=== PATIENT | female | born 1945 | race Hispanic/Latino ===

== ENCOUNTER 2017-03-05 07:40 | Day surgery (SDC) | payer MEDICARE, BC ==
[2017-03-04 11:25] VITALS: BMI 29.4
[2017-03-05 08:09] LABS: ADD MANUAL DIFF? NO
[2017-03-05 08:12] LABS: BASO # 0.04 K/mm3 (0.0-2.0); BASO % 0.6 % (0.0-3.0); EOS # 0.1 (0.0-0.7); EOS % 1.9 % (1.5-5.0); GRAN # 4.97 (1.4-6.5); GRAN % 78.2 % (50.0-68.0); HEMATOCRIT 36.5 % (36.0-48.0); LYMPH # 0.7 (1.2-3.4); LYMPH % 10.2 % (22.0-35.0); MEAN CELL VOLUME 92.2 fL (80.0-105.0); MEAN CORPUSCULAR HEMOGLOBIN 29.8 pg (25.0-35.0); MEAN CORPUSCULAR HGB CONC 32.3 g/dl (31.0-37.0); MEAN PLATELET VOLUME 10.4 fl (7.0-11.0); MONO # 0.6 (0.1-0.6); MONO % 9.1 % (1.0-6.0); PLATELET COUNT 242 10^3/uL (120.0-450.0); RED CELL DISTRIBUTION WIDTH 14.3 % (11.5-14.5); WHITE BLOOD COUNT 6.4 10^3/ul (4.5-11.0)
[2017-03-05 08:23] LABS: INR 1.06 (0.93-1.08); PARTIAL THROMBOPLASTIN TIME 25.9 Seconds (23.7-30.8)
[2017-03-05 08:24] LABS: CALCIUM 9.3 mg/dL (8.4-10.5); POTASSIUM 4.4 mmol/L (3.6-5.0)
--- NOTE | 2017-03-05 09:19 | CP.SDSHP ---
Same Day Surgery H & P - History Proposed Procedure: Cat scan guided Pelvic biopsy Pre-Op Diagnosis: Ovarian Ca - Previous Medical/Surgical History Cardiac: Hypertension Pulmonary: Smoking (smoked 4 or 5 cigarettes for a few years,quit in 1993.), Other (History of pneumonia,tracheostomy) Misc: Other (History of DVT both legs,scoliosis) Pain: 0. No Pain Comments: Has c/o abdominal distension and swollen lower extremities for about 1 month. Cat scan of abdomen and pelvis showed multiple abnormalities including mass lesion in the pelvis. Patient's mother had ovarian ca. Previous Surgical History: Bilateral hernioraphy. Tracheostomy (for difficult intubation due to scoliosis). Colonoscopy - Allergies Allergies: Allergies No Known Allergies Allergy (Verified 04/15/13 20:21) - Physical Exam General Appearance: Well nourished female Vital Signs: Vital Signs 03/05/17 08:00 Temperature 98 F Pulse Rate 77 Respiratory 18 Rate Blood Pressure 122/59 L O2 Sat by Pulse 93 L Oximetry Mental Status: Alert & Oriented x3 Neuro: WNL Heart: WNL Lungs: WNL - {Optional Preform as Required} Abdomen: Other (distended,no tenderness,BS normal,prominant veins noted on the abdomen,pitting edema of both lower extremities noted.) Ortho: Other (Scoliosis noted.) - Impression Impression: Ovarian Ca - Date & Time Date: 03/05/17 Time: 09:09 Short Stay Discharge - Short Stay Discharge Admitting Diagnosis/Reason for [place]: [place] [id number] Disposition: HOME/ ROUTINE Referrals: Peter Love MD [Primary Care Provider] -
[2017-03-05] MEDS ORDERED: Midazolam 2 MG/2 ML VIAL ONE (10:22)
[2017-03-05] MEDS ORDERED: Oxycodone/Acetaminophen 5/325 mg Tab PO PRN (11:35)
[2017-03-05] MEDS ORDERED: Sodium Chloride 0.45% 1,000 ML IV SCH (11:45)
[2017-03-05 11:50] VITALS: O2SAT 96
[2017-03-05 12:39] VITALS: BP 105/54; PULSE 63; RESP 18; TEMP 97.6
--- NOTE | 2017-03-05 17:18 | CT ---
PROCEDURE: CT guided pelvic biopsy. HISTORY: Large pelvic mass. Evaluate for malignancy. PHYSICIAN(S): Santy Mcfadden MD. TECHNIQUE: The relative risks and indications of the procedure were explained to the patient and consent obtained. The patient was placed supine on the CT scanner and preliminary images through the pelvis obtained. Conscious sedation and monitoring were provided throughout the procedure by a nurse. There is a large pelvic mass with 2 components noted. The left component was selected for biopsy and measures approximately 8 cm x 17 cm. A left oblique approach was selected and the area prepped and draped in the usual sterile fashion. 1% Xylocaine was used to anesthetize the skin and soft tissues. A 17-gauge guiding needle was advanced into the large left pelvic mass. Its position was confirmed with CT. Using coaxial technique, multiple core biopsies were obtained. The postprocedure images show no evidence of significant hemorrhage. IMPRESSION: 1. CT-guided left pelvic biopsy as described above.
== END 2017-03-05 14:25 | disposition home or self-care (01) ==
LOC: SDS 07:40
PROVIDERS: ATTEND Radiology Vascular & Interventional Radiology
DX: C56.2 Malignant neoplasm of left ovary (principal); I10 Essential (primary) hypertension; Z80.41 Family history of malignant neoplasm of ovary; Z87.891 Personal history of nicotine dependence; Z86.718 Personal history of other venous thrombosis and embolism; M41.9 Scoliosis, unspecified
CPT/HCPCS: 36415; 49180; 77012; 80048; 85025; 85610; 85730; 88305; J2250; J2405; J3010; J7030

== ENCOUNTER 2017-03-22 10:17 | Inpatient (IN) | payer MEDICARE, BC ==
[2017-03-22 10:48] LABS: INR 2.06 (0.93-1.08); PARTIAL THROMBOPLASTIN TIME 39.2 Seconds (23.7-30.8)
[2017-03-22] MEDS ORDERED: Lidocaine 2% Inj (20ml) ONE ×2 (13:39→13:41)
[2017-03-22] MEDS: Midazolam 2 MG/2 ML VIAL ONE (14:06)
[2017-03-22] MEDS ORDERED: Oxycodone/Acetaminophen 5/325 mg Tab PO PRN (16:11)
--- NOTE | 2017-03-22 20:18 | VASCULAR ---
PROCEDURE: Ultrasound and fluoroscopic right internal jugular venous access port. CLINICAL HISTORY: Metastatic ovarian carcinoma.Venous port for chemotherapy. PHYSICIAN(S): Santy Mcfadden M.D. TECHNIQUE: The relative risks and indications of the procedure were explained to the patient and consent obtained. The patient was placed supine on the arteriogram table and the right neck and chest prepped and draped in the usual sterile fashion. Conscious sedation monitoring was provided throughout the procedure by a nurse. Antibiotics were given prior to the procedure. Under direct ultrasound guidance, the right internal jugular vein was punctured with a micro-puncture set. A 0.035 angled Glidewire was advanced into the IVC. A 4 cm incision was made below the right clavicle and the pocket blunted dissected. A 8 Upper Sorbian single-lumen catheter, 20 cm long, was advanced to the SVC/RA junction. The catheter was trimmed and attached to the port. The port aspirates and injects easily. The port was placed in the pocket and closed in 2 layers. The patient tolerated the procedure well. IMPRESSION: Ultrasound and fluoroscopically placed right internal jugular venous access port.
--- NOTE | 2017-03-22 20:23 | US ---
PROCEDURE: Ultrasound guided paracentesis. HISTORY: Metastatic ovarian CA. Abdominal pain and distension. Needs paracentesis. PHYSICIAN(S): Santy Mcfadden MD. TECHNIQUE: The relative risks and indications for the procedure were explained to the patient and informed written consent obtained. Sonography of the abdomen was performed in a supine position. This revealed a small to moderate amount of non-loculated ascites, greatest in the right upper abdomen. A majority of the patient's abdominal distention is related to intra-abdominal tumor. A puncture site was selected and the area was prepped and draped in the usual sterile fashion. 1% Xylocaine was used to anesthetize the skin and soft tissues. A 7 Polish paracentesis catheter was trocared into the right upper abdomenand 800 cc of serosanguineous fluid aspirated. No labs were sent. IMPRESSION: Ultrasound-guided paracentesis in the right upper abdomen. 800 cc of fluid were aspirated. No labs were sent.
[2017-03-22 21:06] VITALS: BMI 28.7
[2017-03-23] MEDS: Sodium Chloride 0.45% 1,000 ML IV SCH (04:45)
[2017-03-23 07:09] LABS: HEMATOCRIT 33.9 % (36.0-48.0); MEAN CELL VOLUME 92.9 fL (80.0-105.0); MEAN CORPUSCULAR HGB CONC 31.3 g/dl (31.0-37.0); MEAN PLATELET VOLUME 10.5 fl (7.0-11.0); RED CELL DISTRIBUTION WIDTH 14.4 % (11.5-14.5); WHITE BLOOD COUNT 9.3 10^3/ul (4.5-11.0)
[2017-03-23 07:22] LABS: CALCIUM 8.4 mg/dL (8.4-10.5); POTASSIUM 4.7 mmol/L (3.6-5.0)
[2017-03-23] MEDS ORDERED: Enoxaparin 30 mg Syringe SC SCH (10:00)
[2017-03-23] MEDS ORDERED: Sodium Chloride 0.9% 500 ML IV STA (11:22)
[2017-03-23] MEDS ORDERED: Albumin Human 25% (25 gm/100 ml) IV ONE (11:49)
[2017-03-23] MEDS ORDERED: Vancomycin 1gm in NS 250ml 1 GM/250 ML BAG IVPB STA (11:52)
--- NOTE | 2017-03-23 12:12 | RAD ---
HISTORY: fever COMPARISON: 01/26/2017 FINDINGS: LUNGS: No active pulmonary disease. PLEURA: No significant pleural effusion identified, no pneumothorax apparent. CARDIOVASCULAR: Normal heart size. Right central venous infusion port. OSSEOUS STRUCTURES: Thoracic dextroscoliosis. VISUALIZED UPPER ABDOMEN: Normal. OTHER FINDINGS: None. IMPRESSION: No acute infiltrate.
[2017-03-23] MEDS ORDERED: Albumin Human 25% (12.5 gm/50 ml) IV SCH ×2 (13:15→17:00)
[2017-03-23] MEDS: Enoxaparin 60 mg Syringe SC SCH ×2 (13:43→23:32)
[2017-03-23] MEDS: Meropenem 1g/NS 100mL IVPB 1 GM/100 ML PIGGYBACK IVPB SCH ×2 (14:12→21:45)
--- NOTE | 2017-03-23 14:20 | CON ---
DATE: 03/23/2017 HISTORY OF PRESENT ILLNESS: The patient seen and examined at bedside. This is a 71-year-old lady who was in her usual state of health with only a past medical history of hypertension who presented about several weeks ago to her primary medical doctor for increased girth of her abdomen. Subsequent workup including PET/CT of the abdomen and pelvis revealed extensive ovarian cancer. The patient received a Port-A-Cath yesterday by IR for initiation of chemotherapy. At the same time, moderate amount of ascites was removed. As patient was found to be somewhat hypotensive, fluid bolus was given. However, she remained hypotensive with low-grade fever up to 100.2. As she remained hypotensive, ICU consult was called. The patient denies nausea, vomiting, diarrhea or constipation. She felt a little bit dizzy since her blood pressure was found to be low. She is still, however, comfortable and presents for history of present illness. She is also not in respiratory or otherwise distress. PAST MEDICAL HISTORY: Hypertension. ALLERGIES: NKDA. MEDICATIONS: Tylenol p.r.n., albumin 25% 50 mL every 4 hours for today, isoncotic albumin bolus x 2, Lovenox 60 mg subQ q. 12, meropenem, Zofran p.r.n. , vancomycin. REVIEW OF SYSTEMS: Review of 12 organ system, other than mentioned in history of present illness, is negative. FAMILY HISTORY: Noncontributory. PHYSICAL EXAMINATION: VITAL SIGNS: Temperature 98.1 (T-max 100.3), blood pressure 90/60 (previous 70/ 40), respiratory rate 18, oxygen saturation 95% on room air. HEAD AND NECK: Atraumatic. LUNGS: Clear to auscultation bilaterally. HEART: Regular rate and rhythm. S1, S2 normal. ABDOMEN: Soft, distended. Not tender. No peritoneal signs. SKIN: Moist. PSYCHIATRIC: The patient is alert and oriented x 3. LABORATORY DATA: WBC 9.3, hemoglobin 10.6, platelet count 272. Sodium 134, potassium 4.7, chloride 99, carbon dioxide 28, BUN 53, creatinine 1.4, glucose 91. INR 2.06. Chest x-ray showed no acute pulmonary disease. ASSESSMENT AND PLAN: This is a 71-year-old lady with extensive ovarian cancer and a newly found hypotension in the setting of low grade fever. Two most likely possibilities that need to be ruled out are relative hypovolemia and decreasing preload due to pressure of intra-abdominal/intrapelvic mass onto inferior vena cava which impedes venous return to the right heart chambers. In that case, will proceed with aggressive fluid resuscitation with isoncotic colloids. This setting however would protend fairly poor prognosis, unless surgical intervention (debulking procedure will be udertaken soon). As patient had a recent paracentesis, I will also give a few hyperoncotic albumins as well. I would avoid crystalloids as it may lead to reaccumulation of ascites with subsequent compromise of hemodynamics due to increased intra-abdominal pressure on inferior vena cava. Second possibility is an Infection, even though patient looks very comfortable. I will proceed with broad-spectrum antibiotics, septic workup including blood, urine culture and procalcitonin. ID service was called for consult as well. Possibility of acute cardiogenic shock is less likely as patient is on therapeutic anticoagulation, and acute coronary syndrome is less likely in the setting of no chest pain and therapeutic anticoagulation. Nevertheless, I will get troponin and EKG. If the patient worsens clinically or lactate returns elevated, I will do CAT scan of the abdomen and pelvis. I will also trend lactic acid level. Will continue to target euvolemia, euglycemia, normothermia and oxygen saturation more than 90 %. Will continue with DVT and GI prophylaxis. I will take patient to ICU for observation until we figure out at least preliminarily and approximately etiology of her low blood pressure. Addendum: lactic acid 1.1., no signs of end organ dysfunction (troponin is neg, no chest pain, EKG no specific ischemic changes, mentating well-AAO x 3, adequate gas exchange, not in respiratory distress), except for LUKE, which also likely related to mechanical intra-abdominal factors (e.g impeded venous return due to increased intra-abdominal pressure). Will continue fluid resuscitation, if LUKE worsens--will consider nephrology consult ccm time 40 min Oliverio Mittal MD cc: [id number] TT: 03/23/2017 14:19:40 Confirmation # [id number] Dictation # [id number] [facility]
[2017-03-23 14:26] LABS: ALKALINE PHOSPHATASE 45 U/L (38-133); ALT/SGPT 25 U/L (7-56); AST/SGOT 34 U/L (15-39); BILIRUBIN,TOTAL 0.5 mg/dL (0.2-1.3); BLOOD UREA NITROGEN 56 mg/dL (7-21); CALCIUM 8.1 mg/dL (8.4-10.5); CARBON DIOXIDE 28 mmol/L (21-33); CHLORIDE 98 mmol/L (98-107); GFR AFRICAN-AMERICAN 33; GLUCOSE,RANDOM 123 mg/dL (70-110); POTASSIUM 4.7 mmol/L (3.6-5.0); SODIUM 133 mmol/L (132-148)
[2017-03-23 14:28] LABS: TOTAL PROTEIN 5.8 g/dL (5.8-8.3)
[2017-03-23 14:30] LABS: INR 2.31 (0.93-1.08)
[2017-03-23 14:31] LABS: ALB/GLOB RATIO 0.9 (1.1-1.8)
[2017-03-23 14:39] LABS: TROPONIN I < 0.01 ng/mL
[2017-03-23] MEDS: Albumin Human 5% (12.5 gm/250 ml) IV SCH ×3 (15:10→18:10)
[2017-03-23 20:20] LABS: VENOUS BLOOD GAS BASE EXCESS -2.3 mmol/L (0.0-2.0)
[2017-03-23 20:21] LABS: VENOUS BLOOD PH 7.15 (7.32-7.43)
--- NOTE | 2017-03-23 22:29 | CARD ---
APPROVED REPORT EKG Measurement Heart [id number] <Conclusion> Normal sinus rhythm Normal ECG
[2017-03-23] MEDS: Albumin Human 25% (12.5 gm/50 ml) IV SCH (23:31)
[2017-03-24] MEDS: Albumin Human 25% (12.5 gm/50 ml) IV SCH ×4 (04:30→17:00)
[2017-03-24] MEDS: Midazolam 2 MG/2 ML VIAL ONE (07:44)
[2017-03-24] MEDS: Sodium Chloride 0.45% 1,000 ML IV SCH (07:51)
--- NOTE | 2017-03-24 08:11 | HP ---
LOCATION: Currently, the patient is in room 371. Being transferred to the unit after patient was fo und to be persistently hypotensive on the floor. HISTORY OF PRESENT ILLNESS: The patient had been earlier admitted to the hospital late last night af ter she had an outpatient paracentesis done and placement of a venous catheter for initiation of chem otherapy. PAST MEDICAL HISTORY: Dates back to 2012 when I had an interaction with her. I was taking care of h er mother more than 20 years ago, who also had ovarian cancer. The patient, at that time, when I saw her in the office 2 weeks ago, had noticed increased bloating and belching over the last 6-8 weeks r ight after the holidays. She had seen her primary doctor. She was having a lot of burping and belch ing along with some nonproductive cough. She also noted, in addition to that, exertional dyspnea. C hest x-ray and echocardiogram done as an outpatient, which did not show anything specific. Then, ove r the last several weeks, she certainly started noticing bloating in her abdomen moreso than that she could construe as being just abdominal from eating and her appetite had generally gone down. She also noticed the lower extremities are more swollen in addition to decrease in this appetite. Al l of this prompter her family doctor to send her for a CAT scan of the abdomen and pelvis with p.o. c ontrast only and a CAT scan was compared to previous ultrasound from 04/17/2013. CAT scan showed, in the lower pelvis, there was no evidence of acute pathology. There was a low attenuation cystic mass lesion in the left lobe measuring 3.2 cm. There was also a low attenuating lesion in the right lobe of the liver near the dome measuring 2.7 cm. Gall bladder and bile ducts showed no evidence of acut e cholecystitis. Pancreas appeared to be unremarkable without any focal dilatation. Spleen appeared to be unremarkable. Adrenals were unremarkable. Kidneys and ureters showed no evidence of hydronep hrosis. Vasculature was unremarkable. There was no aortic aneurysm. There was no evidence of bowel obstruction with evidence of diffuse colonic diverticulosis without any evidence of diverticulitis. Appendix reveals no evidence of appendicitis. Examination of the peritoneal cavity shows there is m oderate pleural effusion and fluid in the abdominal cavity. Also, post thickening suspicious am ongst the mass lesions. No cough noted in the mid and lower abdomen. There is evidence of omental m etastasis from underlying malignancy. There were no enlarged lymph nodes seen. This could also repr esent ovarian carcinoma or primary peritoneal tumor. The patient has severe kyphoscoliosis with dege nerative changes in the lower spine and the hip joints. These are the findings of the CAT scan. The patient also had a chest x-ray done, which did not show any pathology. Electrolytes were done in e outpatient in the PMD's office. Showed a BUN of 23 with a creatinine of 0.93. Platelet count was modestly decreased to 137, white count 5.1, hemoglobin 13, hematocrit 40.7. The patient's INR was re cently noted to be elevated, which was corrected with vitamin K in order for the patient to receive t he port and have a paracentesis. CA-125 was noted to be 526. 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 The past medical history is also significant for multiple DVTs in both lower extremities along with a hypercoa g state. The patient had been placed on long-term Coumadin and been on it for several years. The abelino martin had a hypercoag workup that did not show any major pathology, but, because there were unprovoke d DVTs, the patient has been placed on long-term anticoagulants. The patient also is hypertensive an d is on medications for the same. She is on Bystolic 5 mg daily x 4, 160/25 daily, while on warfarin 5 daily. She is no longer using the MDI inhaler. REVIEW OF SYSTEMS: The patient denies any history of headaches. No difficulty in swallowing. No ey e discomfort. No history of fevers, chills, malaise or pain. The patient has some degree of shortne ss of breath. No cough or hemoptysis. CARDIAC: Denies any chest pain at rest or with exertion. GASTROINTESTINAL: No history of nausea or vomiting. He has had progressive decrease in appetite singh ng with progressive abdominal distension. Complains of burping and belching consistently. GENITOURINARY: No history of dysuria, hematuria. NEUROLOGIC: No gait disturbance or weakness of any lower extremities. SKIN: No history of skin lesions or ulcerations. MUSCULOSKELETAL: The patient has been having aches and pains in the lower back. No hip pain, no rigoberto t soreness. PHYSICAL EXAMINATION: GENERAL: The patient is awake, alert, and oriented. VITAL SIGNS: T-max is 98.4, blood pressure is 90/60, previously was 70/40, respirations 18, O2 sat i s 96% on room air. HEENT: Head is normocephalic, atraumatic. Conjunctivae pale. Sclerae are anicteric. Pupils are eq ually reactive to light and accommodation. LUNGS: Reveals it to be clear to percussion and auscultation. Decreased breath sounds on the right side posteriorly. HEART: Reveals S1 and S2 to be normal. No gallop or murmur is heard. ABDOMEN: Soft, nontender. No peritoneal signs are noted. The patient is status post abdominal tap yesterday. SKIN: Moist. SPINE: The patient, of note, has severe kyphoscoliosis. Chest x-ray showed no acute pathology. LABORATORY DATA: Reveals a white count of 9.3, hemoglobin 10.6, platelet count of 272,000. Sodium i s 134, K is 4.7, chloride 99, CO2 28, BUN 25, creatinine 1.4, glucose 19. INR is 2.06. ASSESSMENT NOTES AND PLAN: This is a 71-year-old female with extensive ovarian carcinoma, stage IIIB , recently admitted for placement of port and drainage of the peritoneal ascitic fluid. Has had pers istent hypotension with low grade temperature. Differential diagnosis could be evolving sepsis. Cou ld be other causes as well. The patient has already received 1 dose of albumin and IVs were going to be tapered and switched over to more albumin over the next few hours to see if the pressure would go up. Two possibilities that could rule out relative could be decreasing the pressure of the intraabdominal masses on the inferior vena cava, which could impede the venous return to the righ t heart chambers. The patient will get aggressive fluid resuscitation with vasotonic colloids. The other possibility, since the patient had recent paracentesis, will not have to worry about evolving s epsis as well. Second possibility; the patient has already been started on broad spectrum antibiotic s for the same. The patient has been seen by the strainer tender and is going to be transferred to the [facility] for further management for persistent hypotension. ID consultation has also been called. Possib ility of acute cardiogenic shock is less likely in a patient on therapeutic anticoagulation and acute coronary syndrome is also less likely in a patient with no chest pain in therapeutic anticoagulation . Troponin and EKG have been requested, as has been procalcitonin. The trend of lactic acid has als o been requested as well. The patient is going to be transferred to the unit. I had a long discussi on with the patient and her friend who is accompanying her. I will reach out to Dr. Bridger Love as well to let him know the scenario and the events as the . Will continue fluid resuscitat ion and follow the patient very carefully in the unit. I have answered all questions the patient has had. If and when the conditions improve, we will start the patient's systemic chemotherapy as soon as it is feasible once we rule out the infection and hypertension appears to be improved. Labs for a .m. have been requested. Brock Kaur MD cc: [id number] TT: 03/24/2017 01:22:53 mn
--- NOTE | 2017-03-24 10:01 | PN ---
DATE: 03/24/2017 The patient seen and examined at bedside. She is comfortable. She talks full sentences. She is not in respiratory or otherwise distress. PHYSICAL EXAMINATION: VITAL SIGNS: Blood pressure substantially improved and now it is 94/44 with mean arterial pressure of 66, heart rate 80, oxygen saturation 99% on nasal cannula. GENERAL: The patient is comfortable, enjoying her breakfast. HEAD AND NECK: Atraumatic. LUNGS: Clear to auscultation bilaterally. HEART: Regular rate and rhythm. S1, S2 normal. ABDOMEN: Nontender. Very distended due to underlying mass/malignancy. MUSCULOSKELETAL: Trace to 1+ bilateral pedal and ankle edema. SKIN: Moist. PSYCHIATRIC: The patient is alert and oriented x 3. LABORATORY DATA: WBC 9.3, hemoglobin 10.6, platelet count 272. Sodium 133, potassium 4.7, chloride 98, carbon dioxide 28. BUN 56, creatinine 1.8. Lactic acid 1.1. Troponin x 2 negative. Procalcitonin 2.15, INR 2.31. MEDICATIONS: Tylenol p.r.n., albumin, Lovenox 60 mg q. 12, meropenem, Zofran p.r.n., Percocet, vancomycin. ASSESSMENT AND PLAN: This is a 71-year-old lady with hypotension who was admitted to ICU for further management and monitoring overnight. She is comfortable. She is afebrile. She does not have leukocytosis and no apparent source of infection. She is on empiric antibiotics; however, I spoke with Dr. Bravo (infectious disease service) who agreed that severe sepsis unlikely to play a role in this patient's borderline hemodynamics. The patient had acute kidney injury and procalcitonin can be falsely elevated in this setting. Most likely, the patient has an increased intraabdominal pressure that impedes venous return via inferior vena cava to the right chambers of the heart, thus causing pre-load dependency and subsequent systemic hypotension. The patient received albumin. Her blood pressure substantially improved and now mean arterial pressure above 65. Unfortunately, she was turned down by [facility] surgeons for debulking surgery as the a tumor burden was too high for successful postop outcome. The decision was made to proceed with initial chemotherapy to shrink the bulk of the tumor and reconsider surgery at a later date. That was discussed with Dr. Kaur who likely will proceed with non-nephrotoxic chemotherapy tomorrow in attempt to do so. That may potentially help with blood pressure (improved venous return) and ventilatory status based on understanding mechanism described above. I will continue to target euvolemia, euglycemia, normothermia and oxygen saturation more than 90%. We will transfer patient to telemetry. We will continue with therapeutic anticoagulation for patient's deep venous thrombosis, gastrointestinal prophylaxis. ccm time 40 min Oliverio Mittal MD cc: [id number] TT: 03/24/2017 10:00:40 Confirmation # [id number] Dictation # [id number] tn MTDD
[2017-03-24] MEDS: Meropenem 1g/NS 100mL IVPB 1 GM/100 ML PIGGYBACK IVPB SCH ×2 (10:10→21:27)
[2017-03-24 10:24] LABS: HEMATOCRIT 33.5 % (36.0-48.0); MEAN CORPUSCULAR HEMOGLOBIN 29.2 pg (25.0-35.0); MEAN CORPUSCULAR HGB CONC 30.4 g/dl (31.0-37.0); MEAN PLATELET VOLUME 10.7 fl (7.0-11.0); PLATELET COUNT 248 10^3/uL (120.0-450.0); RED CELL DISTRIBUTION WIDTH 14.8 % (11.5-14.5); WHITE BLOOD COUNT 12.5 10^3/ul (4.5-11.0)
[2017-03-24 10:27] LABS: ADD MANUAL DIFF? YES
[2017-03-24 10:27] LABS: ARTERIAL BLOOD GAS HCO3 23.2 mmol/L (21-28); ARTERIAL BLOOD GAS O2 CAPACITY 13.3 mL/dl (16-24); ARTERIAL BLOOD GAS O2 CONTENT 13.2 ML/dl (15-23); ARTERIAL BLOOD HGB O2 SAT 96.5 % (95.0-98.0); CARBOXYHEMOGLOBIN 1.8 % (0.5-1.5); HHB 0.6 % (0-5); METHEMOGLOBIN 1.1 % (0.0-3.0)
[2017-03-24 10:30] LABS: ARTERIAL BLOOD GAS PH 7.07 (7.35-7.45)
[2017-03-24 10:35] LABS: INR 1.87 (0.93-1.08)
[2017-03-24 10:36] LABS: ALB/GLOB RATIO 1.3 (1.1-1.8); BILIRUBIN,TOTAL 0.5 mg/dL (0.2-1.3); CALCIUM 8.5 mg/dL (8.4-10.5); POTASSIUM 5.1 mmol/L (3.6-5.0); TOTAL PROTEIN 6.7 g/dL (5.8-8.3)
[2017-03-24 10:49] LABS: ARTERIAL BLOOD GAS HCO3 24.8 mmol/L (21-28); ARTERIAL BLOOD GAS O2 CAPACITY 13.4 mL/dl (16-24); ARTERIAL BLOOD GAS O2 CONTENT 13.3 ML/dl (15-23); ARTERIAL BLOOD HGB O2 SAT 95.8 % (95.0-98.0); CARBOXYHEMOGLOBIN 2.2 % (0.5-1.5); HHB 1.1 % (0-5); METHEMOGLOBIN 0.9 % (0.0-3.0)
[2017-03-24 11:26] LABS: BAND 3 % (0-2); NEUTROPHIL 90 % (50.0-70.0)
[2017-03-24 11:27] LABS: ANISOCYTOSIS 1+; BURR CELLS SLIGHT; HYPOCHROMIA 1+; OVALOCYTES SLIGHT; PLATELET ESTIMATE NORMAL (NORMAL); POIKILOCYTOSIS SLIGHT; POLYCHROMASIA SLIGHT
[2017-03-24] MEDS: Enoxaparin 60 mg Syringe SC SCH (11:51)
[2017-03-24 13:53] LABS: ARTERIAL BLOOD GAS HCO3 23.7 mmol/L (21-28); ARTERIAL BLOOD GAS O2 CAPACITY 13.6 mL/dl (16-24); ARTERIAL BLOOD GAS O2 CONTENT 13.5 ML/dl (15-23); ARTERIAL BLOOD HGB O2 SAT 96.8 % (95.0-98.0); CARBOXYHEMOGLOBIN 1.9 % (0.5-1.5); HHB 0.4 % (0-5); METHEMOGLOBIN 0.9 % (0.0-3.0)
[2017-03-24 13:54] LABS: ARTERIAL BLOOD GAS PH 7.15 (7.35-7.45)
--- NOTE | 2017-03-24 14:47 | US ---
HISTORY: Leg pain and swelling. Evaluate for DVT PHYSICIAN(S): Santy Mcfadden MD. TECHNIQUE: Duplex sonography and color-flow Doppler with graded compression were used to evaluate the deep venous systems of both lower extremities. FINDINGS: There is hypoechoic thrombus noted in the popliteal veins bilaterally. The femoral veins and common femoral veins are patent and compressible. IMPRESSION: Bilateral popliteal DVT.
--- NOTE | 2017-03-24 15:58 | CP.PCM.CON ---
History of Present Illness - History of Present Illness History of Present Illness: Palliative consult requested by Dr Fely Kaur Reason: Goals of care 71 year old female who was admitted with hypotnesion, low grade fever s/p paracentisis and port a cath placement. The patient has history of Stage IIB ovarian cancer. Respiratory status has decompensated and the patient was transferred to ICU for further medical management. PMHx: Ovarian cancer with omental metastasis, DVT, HTN, Family History: Mother had ovarian cancer. Social History: Non smoker, no alcohol or drug abuse. Lives independently. Advance Care Planning: The patient has an Advanced Directive dated from 2004. Her sister Danitza Schilling is named as health care proxy Review of Systems: Patient complains of shortness of breath,abdominal distention , decreased appetite,frequent belching and bloating,occasional constipation, low back pain. Past Patient History - Tetanus Immunizations Tetanus Immunization: Unknown - Past Social History Smoking Status: Former Smoker - CARDIAC Hx Cardiac Disorders: Yes Hx Circulatory Problems: Yes (dvt in both legs) Hx Hypertension: Yes - PULMONARY Hx Respiratory Disorders: Yes Hx Pneumonia: Yes - NEUROLOGICAL Hx Neurological Disorder: No - HEENT Hx HEENT Problems: No - RENAL Hx Chronic Kidney Disease: No - ENDOCRINE/METABOLIC Hx Endocrine Disorders: No - HEMATOLOGICAL/ONCOLOGICAL Hx Blood Disorders: Yes Hx Cancer: Yes (ovarian ca) - INTEGUMENTARY Hx Dermatological Problems: No - MUSCULOSKELETAL/RHEUMATOLOGICAL Hx Falls: No - GASTROINTESTINAL Hx Gastrointestinal Disorders: No - GENITOURINARY/GYNECOLOGICAL Hx 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") - PSYCHIATRIC Hx Psychophysiologic Disorder: No - SURGICAL HISTORY Hx Surgeries: Yes (hernia repair, left breast cyst removal) - ANESTHESIA Hx Anesthesia Reactions: No Hx Malignant Hyperthermia: No Meds Allergies/Adverse Reactions: Allergies Allergy/AdvReac Type Severity Reaction Status Date / Time No Known Allergies Allergy Verified 04/15/13 20:21 - Medications Medications: Current Medications Acetaminophen (Tylenol 325mg Tab) 650 mg PO Q4H PRN PRN Reason: Pain, Mild (1-3) Albumin Human (Albumin Human 25% (12.5 Gm/50 Ml)) 12.5 gm IV Q4 MARCIAL Stop: 03/24/17 16:01 Last Admin: 03/24/17 11:51 Dose: 12.5 gm Enoxaparin Sodium (Lovenox) 60 mg SC Q12H MARCIAL PRN Reason: Protocol Last Admin: 03/24/17 11:51 Dose: 60 mg Meropenem 1g/NS 100mL IVPB (Meropenem 1g/Ns 100ml Ivpb) 1 gm in 100 mls @ 100 mls/hr IVPB Q12 MARCIAL PRN Reason: Protocol Stop: 03/30/17 13:16 Last Admin: 03/24/17 10:10 Dose: 100 mls/hr Ondansetron HCl (Zofran Inj) 4 mg IVP Q6H PRN PRN Reason: Nausea/Vomiting Oxycodone/Acetaminophen (Percocet 5/325 Mg Tab) 1 tab PO Q4H PRN PRN Reason: Pain, moderate (4-7) Stop: 03/25/17 16:12 Physical Exam - Constitutional Appears: No Acute Distress, Chronically Ill - Head Exam Head Exam: NORMAL INSPECTION - Eye Exam Eye Exam: Normal appearance, PERRL - ENT Exam ENT Exam: Mucous Membranes Moist, Normal Oropharynx - Neck Exam Neck exam: Positive for: Normal Inspection - Respiratory Exam Respiratory Exam: Decreased Breath Sounds Additional comments: dyspnea - Cardiovascular Exam Cardiovascular Exam: REGULAR RHYTHM, +S1, +S2 - GI/Abdominal Exam GI & Abdominal Exam: Diminished Bowel Sounds, Distended, Soft - Extremities Exam Extremities exam: Positive for: pedal edema, pedal pulses present - Back Exam Back exam: NORMAL INSPECTION - Neurological Exam Neurological exam: Alert, Oriented x3 - Skin Skin Exam: Dry, Pallor - Additional Findings Additional findings: Palliative performance scale rating 60 % Results - Vital Signs Recent Vital Signs: Last Vital Signs Temp 98 F 03/24/17 04:00 Pulse 73 03/24/17 14:04 Resp 37 H 03/24/17 08:00 BP 90/38 L 03/24/17 08:00 Pulse Ox 96 03/24/17 08:00 - Labs Result Diagrams: 03/24/17 10:20 03/24/17 10:20 Labs: Laboratory Results - last 24 hr 03/23/17 03/23/17 03/23/17 12:30 20:04 20:04 WBC RBC Hgb Hct MCV MCH MCHC RDW Plt Count MPV Neutrophils % (Manual) Band Neutrophils % Lymphocytes % (Manual) Monocytes % (Manual) Platelet Evaluation Polychromasia Hypochromasia Poikilocytosis (manual Anisocytosis (manual) Ovalocytes Sahil Cells PT INR pCO2 pO2 56 H HCO3 ABG pH ABG Total CO2 ABG O2 Saturation ABG O2 Content ABG Base Excess ABG Hemoglobin ABG Carboxyhemoglobin POC ABG HHb (Measured) ABG Methemoglobin ABG O2 Capacity VBG pH 7.15 L* VBG pCO2 79.0 H* VBG HCO3 27.5 VBG Total CO2 29.9 H VBG O2 Sat (Calc) 92.8 H VBG Base Excess -2.3 L VBG Potassium 4.8 Hgb O2 Saturation Sodium 135.0 Chloride 105.0 Glucose 103 Lactate 0.7 FiO2 21.0 Potassium Carbon Dioxide Anion Gap BUN Creatinine Est GFR ( Amer) Est GFR (Non-Af Amer) Random Glucose Calcium Total Bilirubin AST ALT Alkaline Phosphatase Troponin I < 0.01 Total Protein Albumin Globulin Albumin/Globulin Ratio Procalcitonin 2.15 H Venous Blood Potassium 4.8 03/24/17 03/24/17 03/24/17 10:15 10:20 10:20 WBC 12.5 H D RBC 3.49 L Hgb 10.2 L Hct 33.5 L MCV 96.0 MCH 29.2 MCHC 30.4 L RDW 14.8 H Plt Count 248 MPV 10.7 Neutrophils % (Manual) 90 H Band Neutrophils % 3 H Lymphocytes % (Manual) 4 L Monocytes % (Manual) 3 Platelet Evaluation Normal Polychromasia Slight Hypochromasia 1+ Poikilocytosis (manual Slight Anisocytosis (manual) 1+ Ovalocytes Slight Grant Cells Slight PT INR pCO2 80 H* pO2 100.0 HCO3 23.2 ABG pH 7.07 L* ABG Total CO2 25.7 ABG O2 Saturation 99.4 H ABG O2 Content 13.2 L ABG Base Excess -7.5 L ABG Hemoglobin 9.6 L ABG Carboxyhemoglobin 1.8 H POC ABG HHb (Measured) 0.6 ABG Methemoglobin 1.1 ABG O2 Capacity 13.3 L VBG pH VBG pCO2 VBG HCO3 VBG Total CO2 VBG O2 Sat (Calc) VBG Base Excess VBG Potassium Hgb O2 Saturation 96.5 Sodium 137 Chloride 99 Glucose Lactate FiO2 36.0 Potassium 5.1 H Carbon Dioxide 25 Anion Gap 18 BUN 59 H Creatinine 2.3 H Est GFR ( Amer) 25 Est GFR (Non-Af Amer) 21 Random Glucose 90 Calcium 8.5 Total Bilirubin 0.5 AST 24 ALT 20 Alkaline Phosphatase 46 Troponin I Total Protein 6.7 Albumin 3.7 Globulin 2.9 Albumin/Globulin Ratio 1.3 Procalcitonin Venous Blood Potassium 03/24/17 03/24/17 03/24/17 10:20 10:46 13:45 WBC RBC Hgb Hct MCV MCH MCHC RDW Plt Count MPV Neutrophils % (Manual) Band Neutrophils % Lymphocytes % (Manual) Monocytes % (Manual) Platelet Evaluation Polychromasia Hypochromasia Poikilocytosis (manual Anisocytosis (manual) Ovalocytes Grant Cells PT 20.2 H INR 1.87 H pCO2 80 H* 68 H pO2 78.0 L 102.0 H HCO3 24.8 23.7 ABG pH 7.10 L* 7.15 L* ABG Total CO2 27.3 25.8 ABG O2 Saturation 98.9 H 99.6 H ABG O2 Content 13.3 L 13.5 L ABG Base Excess -5.6 L -5.6 L ABG Hemoglobin 9.8 L 9.8 L ABG Carboxyhemoglobin 2.2 H 1.9 H POC ABG HHb (Measured) 1.1 0.4 ABG Methemoglobin 0.9 0.9 ABG O2 Capacity 13.4 L 13.6 L VBG pH VBG pCO2 VBG HCO3 VBG Total CO2 VBG O2 Sat (Calc) VBG Base Excess VBG Potassium Hgb O2 Saturation 95.8 96.8 Sodium Chloride Glucose Lactate FiO2 32.0 40.0 Potassium Carbon Dioxide Anion Gap BUN Creatinine Est GFR ( Amer) Est GFR (Non-Af Amer) Random Glucose Calcium Total Bilirubin AST ALT Alkaline Phosphatase Troponin I Total Protein Albumin Globulin Albumin/Globulin Ratio Procalcitonin Venous Blood Potassium Assessment & Plan - Assessment and Plan (Free Text) Assessment: 71 year old female seen in the ICU with respiratory failure, hypotension, low grade fever. History of metastatic ovarian cancer, ascites,DVT. Scheduled to receive palliative chemotherapy tomorrow. I was asked to see this patient to discuss goals of care and advance care planning. Patients Advance Directive dated 2004 stipulated that she be DNR/DNI and receive no antibiotic or blood products if she had a terminal illness. We had an extensive discussion about her illness. Patient understands that her cancer is not curable but is hopeful that with treatment it may be controlled for a period of time. She is willing to proceed with chemotherapy treatment. She understands that her respiratory status is poor and that unless she is intubated she will be to weak to receive treatment. Dr Mittal and I discussed possible outcomes/ burdens of intubation. Patient's sister(POA) Danitza Schilling was listening on speaker phone during our discussion. Patient states that if she could not be weaned from ventilator that she would not want permanent tracheotomy. Patient expressed that quality of life was import ant that she prefer to live indpendlty and that she would not want to live in a vegetative state.She has asked that her sister Danitza to make her care decisions regarding her wishes if she is unable to do so.The patient revoked the Advance Directive of 2004 and initiated a new one today, a copy is on the chart. Time spent in discussion with patient regarding goals of care and advance care planning,45 minutes.
--- NOTE | 2017-03-24 19:10 | CON ---
DATE: 03/24/2017 REASON FOR CONSULTATION: Acute kidney injury. HISTORY OF PRESENTING ILLNESS: A 71-year-old lady, previously unknown to me, was admitted to the [facility] floor for observation after CT scan of the abdomen, paracentesis, placement of port for chemothe rapy. On the floor, she was found to be profoundly hypotensive. Transferred to the ICU. Consultati on is requested for acute kidney injury. Acute kidney injury superimposed on chronic kidney disease. The patient has a history of ovarian cancer. 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 She does have a history of hypertension. She gave a h istory of increasing abdominal girth, increasing lower extremity edema, decreased exercise tolerance, increased dyspnea on exertion, decreased appetite the last few days. She was being prepared for ini tiation of chemotherapy. She had a CT scan of her abdomen on 03/04. CT scan was done with contrast, which showed multiple soft tissue masses in the lower abdomen and in the pelvis, highly suspicious fo r malignant neoplasm, omental caking, no bowel obstruction. She had a CT-guided biopsy done on 03/05 for the large pelvic mass. The left component of the pelvic mass was 8 cm x 17 cm. Repeat biopsy showed papillary serous carcinoma, high grade. Currently, patient is seen in the ICU. She is awake. She is alert. She is on BiPAP. She appears c omfortable. She denies any abdominal pain. She denies any nausea, vomiting. She denies any chest t ightness. PAST MEDICAL AND SURGICAL HISTORY: Hypertension, metastatic ovarian cancer, acute kidney injury, par acentesis, pelvic mass biopsy. FAMILY HISTORY: Noncontributory. SOCIAL HISTORY: No smoking, no alcohol use, no IV drug abuse. ALLERGIES: No known drug allergies. CURRENT MEDICATIONS: Albumin, Lovenox, meropenem, Percocet, Tylenol, Zofran. REVIEW OF SYSTEMS: All systems are reviewed, pertinent positives are mentioned in the history of pre senting illness, rest unremarkable. PHYSICAL EXAMINATION: GENERAL: Obese, elderly lady, lying in bed, in the ICU. VITAL SIGNS: Blood pressure 90/38, heart rate 82, respiratory rate 18-24, temperature 98.6, T-max is 101.8. HEENT: Normocephalic, atraumatic, positive pallor. NECK: Supple, no JVD. LUNGS: Bilateral equal air entry, crackles, left greater than right. CARDIAC: S1, S2, regular rate and rhythm, no murmur, no rub. ABDOMEN: Obese, distended, soft, tense ascites, no guarding, no rigidity, bowel sounds present. EXTREMITIES: 3+ pitting edema of the lower extremities. INTAKE AND OUTPUT: 2130/600. LABORATORY DATA: WBC 12.5, hemoglobin 10, hematocrit 33.5, platelets 248, polys 90%, bands 3%, lymph ocytes 4%. Sodium 137, potassium 5.1, chloride 99, CO2 25, BUN 59, creatinine 2.3, glucose 90. Lact ic acid 1.1, calcium 8.5, albumin 3.7. INR 1.8. Blood cultures no growth so far. ASSESSMENT: 1. Acute kidney injury, review of records show that patient received contrast on 03/01/2017. Her savage al function may have been normal prior to that. Records in the hospital show creatinine of 1.7 on , perhaps her renal injury started with the contrast that she got on 03/01. 2. Sepsis, hypotension, leukocytosis, fevers. 3. 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 4. History of hypertension. 5. History of deep vein thrombosis. 6. Severe anion gap acidosis, combination of respiratory and metabolic acidosis. 7. Anemia. PLAN: 1. Leo culture. 2. Empiric antibiotics for healthcare-associated infections. 3. Dose all antibiotics for creatinine clearance about 10-30 mL per minute. 4. Avoid nephrotoxins. 5. Monitor urine output closely. 6. Monitor respiratory status closely. May need noninvasive ventilation. 7. May need supportive renal replacement therapy. 8. Palliative care consult in the setting of metastatic cancer. 9. Case discussed with Dr. Kaur. 10. Case discussed with ICU staff. More than 35 minutes spent in the care of this critically ill patient. Susannah Velasquez MD cc: [phone] TT: 03/24/2017 19:09:54 Confirmation # [id number] Dictation # [id number]
--- NOTE | 2017-03-24 20:36 | CP.PCM.CON ---
History of Present Illness - History of Present Illness History of Present Illness: 71 year old female with PMH of pneumonia, history of tracheostomy, S/P bilateral herniorraphy, HTN, history of bilateral DVT, HTN was recently diagnosed with probable ovarian cancer after presenting to her PMD with acute onset of increased abdominal girth and leg swelling for about a month. She underwent therapeutic paracentesis 2 days ago and underwent port-a-cath placement on her chest yesterday on this admission. She was transferred to the ICU after she was found to be hypotensive despite fluid challenge. She has no fever or chills, has some nausea, no vomiting, no abdominal pain, no dysuria, no hematuria, no diarrhea, no headache or dizziness, no pain in the chest and no pain at the site of the port-a-cath, no dysphagia, no sore throat, no cough or rhinorrhea. Infectious Diseases consult is requested to rule out sepsis in this patient. Review of Systems - Review of Systems All systems: reviewed and no additional remarkable complaints except (as per HPI ) Past Patient History - Tetanus Immunizations Tetanus Immunization: Unknown - Past Social History Smoking Status: Former Smoker - CARDIAC Hx Cardiac Disorders: Yes Hx Circulatory Problems: Yes (dvt in both legs) Hx Hypertension: Yes - PULMONARY Hx Respiratory Disorders: Yes Hx Pneumonia: Yes - NEUROLOGICAL Hx Neurological Disorder: No - HEENT Hx HEENT Problems: No - RENAL Hx Chronic Kidney Disease: No - ENDOCRINE/METABOLIC Hx Endocrine Disorders: No - HEMATOLOGICAL/ONCOLOGICAL Hx Blood Disorders: Yes Hx Cancer: Yes (ovarian ca) - INTEGUMENTARY Hx Dermatological Problems: No - MUSCULOSKELETAL/RHEUMATOLOGICAL Hx Falls: No - GASTROINTESTINAL Hx Gastrointestinal Disorders: No - GENITOURINARY/GYNECOLOGICAL Hx 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") - PSYCHIATRIC Hx Psychophysiologic Disorder: No - SURGICAL HISTORY Hx Surgeries: Yes (hernia repair, left breast cyst removal) - ANESTHESIA Hx Anesthesia Reactions: No Hx Malignant Hyperthermia: No Meds Allergies/Adverse Reactions: Allergies Allergy/AdvReac Type Severity Reaction Status Date / Time No Known Allergies Allergy Verified 04/15/13 20:21 - Medications Medications: Current Medications Acetaminophen (Tylenol 325mg Tab) 650 mg PO Q4H PRN PRN Reason: Pain, Mild (1-3) Albumin Human (Albumin Human 25% (12.5 Gm/50 Ml)) 12.5 gm IV Q4H MARCIAL Stop: 03/24/17 09:16 Albumin Human (Albumin Human 5% (12.5 Gm/250 Ml)) 12.5 gm IV Q1H MARCIAL Stop: 03/23/17 15:16 Enoxaparin Sodium (Lovenox) 60 mg SC Q12H MACRIAL PRN Reason: Protocol Last Admin: 03/23/17 13:43 Dose: 60 mg Meropenem 1g/NS 100mL IVPB (Meropenem 1g/Ns 100ml Ivpb) 1 gm in 100 mls @ 100 mls/hr IVPB Q12 MARCIAL PRN Reason: Protocol Stop: 03/30/17 13:16 Ondansetron HCl (Zofran Inj) 4 mg IVP Q6H PRN PRN Reason: Nausea/Vomiting Oxycodone/Acetaminophen (Percocet 5/325 Mg Tab) 1 tab PO Q4H PRN PRN Reason: Pain, moderate (4-7) Stop: 03/25/17 16:12 Physical Exam - Constitutional Appears: Non-toxic, Other (feels weak) - Head Exam Head Exam: NORMAL INSPECTION - ENT Exam ENT Exam: Mucous Membranes Moist - Neck Exam Neck exam: Negative for: Lymphadenopathy, Meningismus - Respiratory Exam Respiratory Exam: Decreased Breath Sounds Additional comments: right sided port-a-cath site clean and non-tender - Cardiovascular Exam Cardiovascular Exam: +S1, +S2 - GI/Abdominal Exam GI & Abdominal Exam: Distended, Soft. absent: Firm, Guarding, Rigid, Tenderness Results - Vital Signs Recent Vital Signs: Last Vital Signs Temp 98.1 F 03/23/17 09:30 Pulse 83 03/23/17 06:00 Resp 18 03/23/17 06:00 BP 90/60 L 03/23/17 11:40 Pulse Ox 95 03/23/17 06:00 - Labs Result Diagrams: 03/24/17 10:20 03/24/17 10:20 Labs: Laboratory Results - last 24 hr 03/23/17 03/23/17 06:30 06:30 WBC 9.3 RBC 3.65 Hgb 10.6 L Hct 33.9 L MCV 92.9 MCH 29.0 MCHC 31.3 RDW 14.4 Plt Count 272 MPV 10.5 Sodium 134 Potassium 4.7 Chloride 99 Carbon Dioxide 28 Anion Gap 12 BUN 53 H Creatinine 1.4 Est GFR ( Amer) 45 Est GFR (Non-Af Amer) 37 Random Glucose 91 Calcium 8.4 Assessment & Plan - Assessment and Plan (Free Text) Plan: Assessment Severe sepsis with acute renal failure due to gram negative bacilli bacteremia in a patient with advanced stage ovarian cancer with ascites, GI or source, unlikely port as source since it was only placed yesterday history of pneumonia history of tracheostomy S/P bilateral herniorraphy HTN history of bilateral DVT Plan Patient has been given a dose of IV Vancomycin and we have started Merrem pending identification and sensitivities of the gram negative bacilli in the blood; follow up urine cx Will follow clinically
[2017-03-24 20:55] LABS: ARTERIAL BLOOD GAS HCO3 24.2 mmol/L (21-28)
[2017-03-24] MEDS ORDERED: Dexamethasone 20 mg / 5 ml Inj IVP ONE (21:00)
[2017-03-24] MEDS: Famotidine 20mg/50ml 20 MG/50 ML BAG IVPB SCH (21:26)
--- NOTE | 2017-03-24 22:48 | PN ---
DATE: 03/24/[address] Kaur. SUBJECTIVE: The patient is a 71-year-old female seen lying awake in the intensive care unit with BiP AP on with the patient noted to be n.p.o. with no IV fluids. This will be corrected, as the patient was short of breath earlier today. She is somnolent but arousable, in no acute distress, denying any pain. The patient is admitted for evaluation of hypotension after a port placement and paracentesis. She i s known to suffer from extensive ovarian cancer. OBJECTIVE: VITAL SIGNS: Temperature 98, pulse 73, respirations 27, blood pressure 90/38. PHYSICAL EXAMINATION: HEENT: The patient with BiPAP on. NECK: Supple. HEART: Regular rate. LUNGS: Clear. ABDOMEN: Distended, nontender. EXTREMITIES: +1 edema with significant kyphoscoliosis. SKIN: Warm, dry and clear. NEUROLOGIC: Somnolent but arousable and oriented. LABORATORY DATA: The patient's labs were done, white blood cell count 12.5, hemoglobin 10.2, hematoc rit 33.5, platelet count 248,000 with a chem metabolic panel showing a potassium of 5.1, BUN of 53, c reatinine of 2.3, otherwise normal chem panel. INR is 1.87 today with an ABG showing a pO2 of 85, pC O2 of 62, pH of 7.2. Blood culture showed gram-negative rods and the anaerobic bottle positive only. ASSESSMENT: Hypotension, sepsis, ovarian cancer, acute renal failure, new deep venous thrombosis, bi lateral acute levoscoliosis, status post paracentesis, hypertension. PLAN: The patient is to continue present medical regimen with recommendations for chemotherapy as pe r Dr. Kaur's protocol. We will give dexamethasone 20 mg IV 1 dose tonight in anticipation of this with correction of her electrolytes as per Dr. Velasquez, renal, with antibiotics to continue as per Dr. Benson and Dr. Bravo with the patient to continue on BiPAP with her diet advanced to full liquid s as tolerated. We will ask for a consult with Dr. Dumont, pulmonary. Delgado Lamas MD cc: [phone] TT: 03/24/2017 22:47:46 Confirmation # [id number] Dictation # [id number]
--- NOTE | 2017-03-25 07:34 | PN ---
DATE: 03/24/2017 HISTORY OF PRESENT ILLNESS: The patient is currently in the unit, was transferred from the floor to the unit yesterday in view of persistent hypotension, possible sepsis and rapid workup was ensued ___ __ she has been in the unit. The patient has been placed on IV fluids, along with limitation by royer ng the patient IV albumin to increase the colloidal pressure. The patient has been started on broad spectrum antibiotics. CAT scan of the abdomen and pelvis was done and venous Doppler of the lower ex tremities were done, which show popliteal vein thrombosis. The patient is already on Lovenox 60 mg b .i.d. SUBJECTIVE: The patient is examined by the bedside. Immediate friends are there. The patient also was interviewed and talked to by a palliative care nurse, who as well in my presence. The feliciano ent, at this time, is on BiPAP machine and CO2, which was building up, has come down. She is comfort able. She was able to communicate with me fully. The patient was rational and she, at this point in time, has decided to rescind her previous DNR/DNI order from 2004 so that we can communicate very cl early to everybody that we plan to go ahead with systemic chemotherapy tomorrow and, if necessary at that point in time, after the chemotherapy, if we have to intubate her or do anything to help her be resuscitated, we are going to proceed with that. The patient was just diagnosed with ovarian cancer and it is the ovarian cancer that is causing mechanical issues for the diaphragm, which is being push ed, which, in turn, is causing her to have difficulty in breathing and to retain CO2. The patient is not operable at this time. She is being seen by at [facility], who felt the patient irma uld get at least 2-3 cycles of dose dense chemotherapy to see if she was a candidate at that time for possible surgery. Subjectively, the patient is not complaining of nausea or vomiting. She has no s ignificant abdominal complaints except progressive distention. OBJECTIVE: VITAL SIGNS: Stable, but blood pressure is now 194/44, mean arterial pressure of 66, heart rate is 8 0. O2 sat is 99% on nasal cannula. The patient is comfortable, otherwise holding her own. HEENT: Head is normocephalic, atraumatic. Examination of the oropharynx reveals no oropharyngeal le sions. The patient has significant kyphoscoliosis. LUNGS: Clear to percussion and auscultation. Decreased breath sounds on the right side posteriorly. HEART: Reveals S1 and S2 to be normal. No gallop or murmur is heard. ABDOMEN: Distended secondary to underlying malignancy, which is causing caking of the omentum and pr otuberance of the intestinal loops, which makes is so prominent and enlarged. 800 mL of fluid was re moved yesterday, but that is not enough to account for all of her symptoms. MUSCULOSKELETAL: The patient has trace to 1+ bilateral pedal edema and ankle edema. SKIN: Moist. NEUROLOGIC: The patient is awake, alert, and oriented x 3. LABORATORY DATA: Reveals a white count of 9.3, hemoglobin 10.6, platelet count 272,000. Sodium is 1 33, K is 4.7, chloride 98, CO2 28, BUN 56, creatinine 1.8, lactic acid 1.1. Troponin x 2 negative. Procalcitonin is 2.15. INR is 2.31. MEDICATIONS: Include Tylenol, albumin, Lovenox, meropenem, Zofran, Percocet and vancomycin. ASSESSMENT NOTES AND PLAN: This is a 71-year-old female with hypercoag state, severe kyphoscoliosis, borderline hypertension, which is persistent, probably related to treatment of the blood flow return because of significant tumor probably pressing on the vena cava. The patient also has a possible so urce of sepsis as she had abdominal tap and placement of a port with plans for initiation of chemothe rapy. ID feels that, at this point in time, if we have to proceed with chemotherapy, it would be okay to do so despite the fact that we do not have clear cut answers as far as possibility of an infectio n is concerned, especially the procalcitonin being elevated. The intra-abdominal pressure could impe de venous return to the right chambers of the heart and that can cause systemic hypotension. The pat ient, at this point in time, is not a candidate for debulking surgery as the tumor was too high for successful . Dissection were made after discussing with the patient and the members of the team that we should proceed with Carbo/Taxol based chemotherapy, which has been ordered. Bec ause of the possibility and the potential that her kidney function could worsen, I have discussed wit h the patient, at this point in time, we will proceed with the chemotherapy and hope for the best. I f unforeseen circumstances, if she should have problems breathing, she will be intubated and managed aggressively until we deem the situation to be hopeless. Will continue therapeutic anticoagulation f or the patient's deep venous thrombosis. The patient is also on gastric prophylaxis. Overall progno sis is guarded. The patient is understanding and we are going to try our best. Brock Kaur MD cc: [id number] TT: 03/25/2017 00:59:10 Confirmation # [id number] Dictation # [id number] wa 03/25/2017 06:33:59
[2017-03-25] MEDS ORDERED: Ondansetron 16 MG, Dexamethasone 20 MG, DiphenhydrAMINE 25 MG, Famotidine 20 MG in Sodi... IVPB ONE (09:10)
[2017-03-25] MEDS ORDERED: Sodium Chloride 0.9% 1,000 ML IV SCH (09:10)
--- NOTE | 2017-03-25 15:06 | PN ---
DATE: 03/25/2017 LOCATION: CCU, 129, bed 3. The patient was seen earlier this morning, 03/25/2017, at [facility]. SUBJECTIVE: The patient is not relatively comfortable in bed, has not been febrile overnight, has no t developed any nausea, any diarrhea. There is currently no abdominal pain, no shortness of breath. PHYSICAL EXAMINATION: VITAL SIGNS: The patient is afebrile, blood pressure is currently 100/70, heart rate is about 78. HEAD AND NECK: Normocephalic, atraumatic. CHEST: Decreased breath sounds bilaterally. No rales noted. There is a right anterior chest wall P ort-A-Cath in place. It is nontender. No discharge noted. HEART: S1 and S2 are normal. ABDOMEN: Distended. It is soft. EXTREMITIES: There is no tenderness noted. LABORATORY DATA: Unfortunately, the computer system is down and we are unable to review the labs for today, but we do know that the patient has gram-negative bacilli as noted from yesterday /2 bottles . ASSESSMENT: This is a 71-year-old female with newly diagnosed ovarian cancer with probable omental m etastases, obesity, who initially came in for the ovarian cancer but became hypotensive, and we are n ow currently treating for probable severe sepsis due to gram-negative bacilli, source still to be det ermined, but more likely abdominal or gynecologic in origin. PLAN: We will follow up the identification and sensitivities of the gram-negative bacilli in the blo od. We have repeated blood cultures and we will see if there is clearance of the bacteremia. We hav e started the patient on Merrem and we will continue this, and today is day #2. We have discussed wi Dr. Kaur that the patient may undergo chemotherapy since the patient is already on antibiotics for the treatment of her sepsis and the gram-negative bacilli. The patient continues to be in critic al condition and is currently still in the CCU. Jass Bravo M.D. cc: [id number] TT: 03/25/2017 13:32:34 Confirmation # [id number] Dictation # [id number] mn
--- NOTE | 2017-03-25 21:41 | PN ---
DATE: 03/25/2017 This is patient's hospital visit in the intensive care unit. For Dr. Kaur. SUBJECTIVE: The patient is a 71-year-old female seen lying awake in the intensive care unit on BiPAP with her respiratory issues modestly improved with the patient now being treated as per Dr. Kaur' s recommendation for her ovarian cancer with the patient tolerating it well. She otherwise is also t olerating her diet of full liquids at this point with her hypotensive episode, status post paracentes is and port placement, now improved. PHYSICAL EXAMINATION: VITAL SIGNS: Temperature 98.5, pulse 76, respirations 17, blood pressure 118/63 with a pulse ox of 9 7%. HEENT: Unremarkable. NECK: Supple. HEART: Regular rate. LUNGS: Clear. ABDOMEN: Distended with patient status post paracentesis; however, abdomen is still tense. EXTREMITIES: +1 edema. NEUROLOGIC: Awake, alert. SKIN: Otherwise, warm, dry and clear. LABORATORY DATA: The patient's labs were done yesterday, but the computer is down, with labs to be m onitored and checked in the morning and they are ordered for. ASSESSMENT: Hypotension, sepsis, ovarian cancer, acute renal failure, new deep venous thrombosis, bi lateral, kyphoscoliosis, status post paracentesis, history of hypertension, respiratory distress. PLAN: The patient is to continue present medical regimen as per consultants' recommendations with Lo venox to continue along with IV antibiotics. We will monitor clinically and with labs. Await a cons ult with Dr. Dumont, pulmonary. Delgado Lamas MD cc: [phone] TT: 03/25/2017 21:40:55 Confirmation # [id number] Dictation # [id number] teo
[2017-03-25] MEDS: Meropenem 1g/NS 100mL IVPB 1 GM/100 ML PIGGYBACK IVPB SCH (23:00)
[2017-03-26] MEDS: Enoxaparin 60 mg Syringe SC SCH ×2 (01:00→12:12)
[2017-03-26 07:41] LABS: ADD MANUAL DIFF? NO
[2017-03-26 08:06] LABS: ALB/GLOB RATIO 1.1 (1.1-1.8); BILIRUBIN,TOTAL 0.4 mg/dL (0.2-1.3); CALCIUM 8.4 mg/dL (8.4-10.5); POTASSIUM 4.5 mmol/L (3.6-5.0); TOTAL PROTEIN 6.5 g/dL (5.8-8.3)
[2017-03-26 08:08] LABS: INR 2.43 (0.93-1.08)
[2017-03-26 08:11] LABS: BASO # 0.01 K/mm3 (0.0-2.0); BASO % 0.1 % (0.0-3.0); EOS % 0.1 % (1.5-5.0); GRAN # 11.48 (1.4-6.5); GRAN % 96.4 % (50.0-68.0); LYMPH # 0.1 (1.2-3.4); LYMPH % 1.2 % (22.0-35.0); MEAN CELL VOLUME 92.1 fL (80.0-105.0); MEAN CORPUSCULAR HEMOGLOBIN 28.7 pg (25.0-35.0); MEAN CORPUSCULAR HGB CONC 31.2 g/dl (31.0-37.0); MEAN PLATELET VOLUME 10.9 fl (7.0-11.0); MONO # 0.3 (0.1-0.6); MONO % 2.2 % (1.0-6.0); PLATELET COUNT 272 10^3/uL (120.0-450.0); RED CELL DISTRIBUTION WIDTH 15.1 % (11.5-14.5); WHITE BLOOD COUNT 11.9 10^3/ul (4.5-11.0)
--- NOTE | 2017-03-26 08:17 | PN ---
DATE: 03/25/2017 The patient was seen this morning in intensive care unit, CCU bed 3. She is resting comfort ably in bed with a BiPAP mask in place and her friend, Mrs. Funes, at the bedside. The patient is awake, alert, clear, appropriate. She is scheduled to receive chemotherapy today. I believe she may have received a dose yesterday as well. She is awake and in good spirits. Respiratory status is compromised because of her severe kyphoscoliosis and restrictive lung disease as well as the pressur e of the abdominal malignancy and causing significant distention and hard abdomen. PHYSICAL EXAMINATION: LUNGS: Air exchange is fair, both right and left, but markedly restricted from her baseline due to h er baseline kyphoscoliosis and the additional burden of the tumor mass. ABDOMEN: Hard, protuberant with omental caking. Prognosis is guarded at best. The patient is fully aware. Hopefully, the chemo will have a positive dramatic response, but we will wait to see. Peter Love MD cc: [phone] TT: 03/26/2017 08:02:59 Confirmation # [id number] Dictation # [id number] en
--- NOTE | 2017-03-26 08:58 | CP.PCM.PN ---
Subjective - Date & Time of Evaluation Date of Evaluation: 03/25/17 Time of Evaluation: 12:00 - Subjective Subjective: Awake, alert. Mild dyspnea, BIPAP in use. Offers no complaints Objective - Vital Signs/Intake and Output Vital Signs (last 24 hours): Temp Pulse Resp BP Pulse Ox 97 F L 78 22 100/43 L 95 03/26/17 04:00 03/26/17 07:50 03/26/17 00:05 03/26/17 00:05 03/26/17 00:05 Intake and Output: 03/26/17 03/26/17 06:59 18:59 Intake Total 100 Output Total 550 Balance -450 - Medications Medications: Current Medications Acetaminophen (Tylenol 325mg Tab) 650 mg PO Q4H PRN PRN Reason: Pain, Mild (1-3) Enoxaparin Sodium (Lovenox) 60 mg SC Q12H MARCIAL PRN Reason: Protocol Last Admin: 03/26/17 01:00 Dose: 60 mg Meropenem 1g/NS 100mL IVPB (Meropenem 1g/Ns 100ml Ivpb) 1 gm in 100 mls @ 100 mls/hr IVPB Q12 MARCIAL PRN Reason: Protocol Stop: 03/30/17 13:16 Last Admin: 03/25/17 23:00 Dose: 100 mls/hr Famotidine (Pepcid 20mg/50ml Premix) 20 mg in 50 mls @ 100 mls/hr IVPB DAILY [facility] Last Admin: 03/24/17 21:26 Dose: 100 mls/hr Ondansetron HCl (Zofran Inj) 4 mg IVP Q6H PRN PRN Reason: Nausea/Vomiting - Labs Labs: 03/26/17 07:15 03/26/17 07:15 PT 26.2 Seconds (9.9-11.8) H 03/26/17 07:15 INR 2.43 (0.93-1.08) H 03/26/17 07:15 APTT 39.2 Seconds (23.7-30.8) H 03/22/17 10:33 - Constitutional Appears: No Acute Distress, Chronically Ill - Head Exam Head Exam: NORMAL INSPECTION - Eye Exam Eye Exam: Normal appearance, PERRL - ENT Exam ENT Exam: Mucous Membranes Moist - Respiratory Exam Respiratory Exam: Decreased Breath Sounds Additional comments: dyspnea - Cardiovascular Exam Cardiovascular Exam: REGULAR RHYTHM, +S1, +S2 - GI/Abdominal Exam GI & Abdominal Exam: Distended, Soft, Normal Bowel Sounds Additional comments: no tenderness or guarding - Extremities Exam Extremities Exam: Normal Inspection Additional comments: 1 + bilateral lower extremity edema - Neurological Exam Neurological Exam: Alert - Skin Skin Exam: Dry, Pallor Assessment and Plan - Assessment and Plan (Free Text) Assessment: 71 year old female with metastatic ovarian cancer, admitted with dyspnea, hypotension, abdominal distention. The patient is scheduled to receive chemotherapy today. Patient sister, Danitza Schilling(POA) at bedside. We reviewed the terms of patient advance directed in the patient's presence. Patient affirms she is DNR /DNI . Patient expressed that she does not want to be kept alive via aggressive medical interventions if her health should decline and she is in a vegetative state. Danitza understands the terms of Advance Directive and agrees to responsibility of health care proxy. Time spent with patient and health care proxy in advance care planning discussion, 30 minutes Plan: Advance care planning. Psychosocial support
--- NOTE | 2017-03-26 09:09 | RAD ---
HISTORY: sob COMPARISON: 03/23/2017 FINDINGS: LUNGS: No active pulmonary disease. PLEURA: No significant pleural effusion identified, no pneumothorax apparent. CARDIOVASCULAR: Normal. OSSEOUS STRUCTURES: There is severe scoliosis convex to the right VISUALIZED UPPER ABDOMEN: Normal. OTHER FINDINGS: None. IMPRESSION: No active disease.
--- NOTE | 2017-03-26 09:37 | PN ---
DATE: 03/25/2017 SUBJECTIVE: The patient is seen in the ICU. She remains on BiPAP. She is arousable. She denies an y pain. She denies any shortness of breath. She has increased abdominal girth. PHYSICAL EXAMINATION: GENERAL: Elderly lady, lying in bed, in the ICU, on BiPAP. VITAL SIGNS: Blood pressure 86/40, heart rate 73, respiratory rate 18-20, temperature 97. HEENT: Normocephalic, atraumatic. NECK: Supple, no JVD. LUNGS: Bilateral equal air entry, bilateral rales. CARDIAC: S1, S2, regular rate and rhythm, no murmur, no rub. ABDOMEN: Obese, distended, tense ascites?, bowel sounds present, no guarding, no rigidity. EXTREMITIES: 3+ pitting edema of the lower extremities. INTAKE AND OUTPUT: 300/400. LABORATORY DATA: WBC 12.5, hemoglobin 10, hematocrit 33.5, platelets 248. Sodium 137, potassium 5.1 , chloride 99, CO2 25, BUN 59, creatinine 2.3, glucose 90, calcium 8.5. MEDICATIONS: Lovenox 60 q. 12, meropenem 1 gram q. 12, Pepcid, Tylenol, Zofran. ASSESSMENT: A 71-year-old lady with hypercoagulable state, multiple deep venous thromboses, severe k yphoscoliosis, hypertension, with metastatic serous carcinoma, with large tumor burden intraabdominal ly. Was initially admitted to the medical floor for Port-A-Cath placement and initiation of chemothe rapy. On the floor, became hypotensive. Transferred to the ICU for sepsis, hypotension, respiratory failure, respiratory acidosis, acute kidney injury. The patient had a paracentesis, but only 800 mL of fluid was removed. The patient has a large tumor burden. 1. Acute kidney injury, review of records shows that her acute kidney injury dates back to the time she got contrast on 03/01. Suspect she has contrast-induced acute tubular necrosis with worsening of renal function in the setting of hypotension, sepsis. 2. Advanced metastatic cancer. 3. Profound hypotension. 4. Respiratory acidosis. 5. Borderline hyperkalemia. 6. Anemia. 7. Leukocytosis, bandemia. 8. Gram-negative bacteremia. PLAN: 1. Renal function seems to have plateaued. Creatinine is essentially unchanged for the last 48 hour s. 2. Hyperkalemia is mild. No treatment is needed. 3. The patient appears to be volume overloaded and anasarcic, but unfortunately cannot be diuresed b ecause of low blood pressure. 4. Not a candidate for ultrafiltration/renal replacement therapy, also because of severe hypotension . 5. Decadron was given yesterday in preparation for chemotherapy. 6. Continue antibiotics to cover for gram-negative bacteremia, dose all antibiotics for creatinine c learance 10-30 mL per minute. 7. The patient remains critically ill, case is discussed at length with ICU residents, ICU nurses. More than 35 minutes were spent in the care of this critically ill patient. Susannah Velasquez MD cc: [phone] TT: 03/26/2017 09:37:06 Confirmation # [id number] Dictation # [id number] en
[2017-03-26 09:41] LABS: ARTERIAL BLOOD GAS PH 7.16 (7.35-7.45)
[2017-03-26 09:42] LABS: ARTERIAL BLOOD GAS HCO3 22.1 mmol/L (21-28)
[2017-03-26] MEDS: Meropenem 1g/NS 100mL IVPB 1 GM/100 ML PIGGYBACK IVPB SCH ×2 (10:12→21:33)
[2017-03-26] MEDS: Famotidine 20mg/50ml 20 MG/50 ML BAG IVPB SCH (10:13)
[2017-03-26] MEDS ORDERED: Ondansetron 16 MG, Dexamethasone 20 MG, DiphenhydrAMINE 25 MG, Famotidine 20 MG in Sodi... IVPB ONE (11:30)
--- NOTE | 2017-03-26 12:02 | CP.PCM.PN ---
Subjective - Date & Time of Evaluation Date of Evaluation: 03/26/17 Time of Evaluation: 09:30 - Subjective Subjective: Comfortable in bed, no fevers overnight, not in distress. Objective - Vital Signs/Intake and Output Vital Signs (last 24 hours): Temp Pulse Resp BP Pulse Ox 97 F L 83 19 99/47 L 94 L 03/26/17 04:00 03/26/17 09:50 03/26/17 09:50 03/26/17 09:50 03/26/17 09:50 Intake and Output: 03/26/17 03/26/17 06:59 18:59 Intake Total 100 Output Total 550 Balance -450 - Medications Medications: Current Medications Acetaminophen (Tylenol 325mg Tab) 650 mg PO Q4H PRN PRN Reason: Pain, Mild (1-3) Enoxaparin Sodium (Lovenox) 60 mg SC Q12H MARCIAL PRN Reason: Protocol Last Admin: 03/26/17 01:00 Dose: 60 mg Meropenem 1g/NS 100mL IVPB (Meropenem 1g/Ns 100ml Ivpb) 1 gm in 100 mls @ 100 mls/hr IVPB Q12 MARCIAL PRN Reason: Protocol Stop: 03/30/17 13:16 Last Admin: 03/26/17 10:12 Dose: 100 mls/hr Famotidine (Pepcid 20mg/50ml Premix) 20 mg in 50 mls @ 100 mls/hr IVPB DAILY [facility] Last Admin: 03/26/17 10:13 Dose: 100 mls/hr Sodium Chloride (Sodium Chloride 0.9%) 1,000 mls @ 166.667 mls/hr IV .Q6H [facility] Ondansetron HCl (Zofran Inj) 4 mg IVP Q6H PRN PRN Reason: Nausea/Vomiting - Labs Labs: 03/26/17 07:15 03/26/17 07:15 PT 26.2 Seconds (9.9-11.8) H 03/26/17 07:15 INR 2.43 (0.93-1.08) H 03/26/17 07:15 APTT 39.2 Seconds (23.7-30.8) H 03/22/17 10:33 - Constitutional Appears: Non-toxic, No Acute Distress - Head Exam Head Exam: NORMAL INSPECTION - ENT Exam ENT Exam: Mucous Membranes Moist - Neck Exam Neck Exam: absent: Lymphadenopathy, Meningismus - Respiratory Exam Respiratory Exam: Decreased Breath Sounds - Cardiovascular Exam Cardiovascular Exam: +S1, +S2 - GI/Abdominal Exam GI & Abdominal Exam: Distended, Soft. absent: Tenderness Assessment and Plan - Assessment and Plan (Free Text) Plan: Assessment Severe sepsis with acute renal failure due to gram negative bacilli bacteremia in a patient with advanced stage ovarian cancer with ascites, GI or source, unlikely port as source since it was only placed a day prior to the bacteremia history of pneumonia history of tracheostomy S/P bilateral herniorraphy HTN history of bilateral DVT Plan continue Merrem (day 2) pending identification and sensitivities of the gram negative bacilli in the blood; follow up urine cx and repeat blood cx Discussed with Dr. Kaur that we are able to start chemotherapy since she is on antibiotics Will continue to follow clinically
[2017-03-26 12:19] LABS: CALCIUM 8.5 mg/dL (8.4-10.5); POTASSIUM 5.1 mmol/L (3.6-5.0)
[2017-03-26 13:37] LABS: HEMATOCRIT 32.5 % (36.0-48.0); MEAN CELL VOLUME 93.9 fL (80.0-105.0); MEAN CORPUSCULAR HEMOGLOBIN 28.9 pg (25.0-35.0); MEAN CORPUSCULAR HGB CONC 30.8 g/dl (31.0-37.0); MEAN PLATELET VOLUME 10.4 fl (7.0-11.0); RED CELL DISTRIBUTION WIDTH 14.8 % (11.5-14.5); WHITE BLOOD COUNT 10.3 10^3/ul (4.5-11.0)
[2017-03-26 13:52] LABS: ARTERIAL BLOOD GAS O2 CAPACITY 13.5 mL/dL (16-24); ARTERIAL BLOOD GAS PH 7.16 (7.35-7.45)
[2017-03-26 13:53] LABS: ARTERIAL BLOOD HGB O2 SAT 96.2 % (95.0-98.0); CARBOXYHEMOGLOBIN 1.7 % (0.5-1.5); HHB 1.1 % (0-5)
--- NOTE | 2017-03-26 14:51 | CP.CCUPN ---
<Torrie Morel - Last Filed: 03/26/17 18:09> CCU Subjective - Physician Review Events Since Last Encounter (Free Text): 03/26/17 17:44 Pt s/e at bedside this AM. NAEO. Patient wore the bipap all night and say she slept comfortably. patient's BP is normotensive today. Denies SOB, fevers, chills, cough, abdominal pain, or any other symptoms. Patient was did a trial of NC and for an hour and a second ABG was drawn showing not a great change in acid base status, so patient was left on NC. CCU Objective - Vital Signs / Intake & Output Vital Signs (Last 4 hours): Vital Signs Pulse 03/26/17 14:49 82 Intake and Output (Last 8hrs): Intake & Output 03/25/17 03/26/17 03/26/17 22:59 06:59 14:59 Intake Total 100 Output Total 550 Balance -450 Weight 79.832 kg Intake: IV 100 Left Hand 100 Output: Urine 550 Urine, Voided 550 Other: Voiding Method Bedpan # Bowel Movements 1 - Physical Exam Head: Positive for: Atraumatic, Normocephalic Pupils: Positive for: PERRL Extroacular Muscles: Positive for: EOMI Conjunctiva: Positive for: Normal Mouth: Positive for: Moist Mucous Membranes, Normal Lips Pharnyx: Positive for: Normal Nose (External): Positive for: Atraumatic Neck: Positive for: Normal Range of Motion Respiratory/Chest: Positive for: Clear to Auscultation, Decreased Breath Sounds (diffuse BL), Tachypneic (mild tachypnea). Negative for: Good Air Exchange, Respiratory Distress, Accessory Muscle Use, Rales, Retracting, Rhonchi, Tender to Palpation Cardiovascular: Positive for: Regular Rate and Rhythm, Normal S1, S2. Negative for: Murmurs Abdomen: Positive for: Distention (severe distention). Negative for: Tenderness , Normal Bowel Sounds (hypoactive bowel sounds), Peritoneal Signs, Rebound Upper Extremity: Positive for: Normal Inspection, NORMAL PULSES, Neurovascularly Intact. Negative for: Edema Lower Extremity: Positive for: Edema (trace pitting edema BL), NORMAL PULSES. Negative for: CALF TENDERNESS Neurological: Positive for: GCS=15, CN II-XII Intact, Speech Normal, Motor Func Grossly Intact, Memory Normal Skin: Positive for: Warm, Dry, Normal Color Psychiatric: Positive for: Alert, Oriented x 3, Normal Insight, Normal Concentration - Medications Active Medications: Active Medications Generic Name Dose Route Start Last Admin Trade Name Freq PRN Reason Stop Dose Admin Acetaminophen 650 mg 03/22/17 19:24 Tylenol 325mg Tab PO Q4H PRN Pain, Mild (1-3) Enoxaparin Sodium 60 mg 03/23/17 12:00 03/26/17 12:12 Lovenox SC 60 mg Q12H MARCIAL Administration Protocol Meropenem 1g/NS 100mL IVPB 1 gm in 100 mls @ 100 mls/hr 03/23/17 13:15 10:12 Meropenem 1g/Ns 100ml Ivpb IVPB 03/30/17 13:16 100 mls/hr Q12 MARCIAL Administration Protocol Famotidine 20 mg in 50 mls @ 100 mls/hr 03/24/17 21:00 03/26/17 10:13 Pepcid 20mg/50ml Premix IVPB 100 mls/hr DAILY MARCIAL Administration Ondansetron HCl 4 mg 03/22/17 16:11 Zofran Inj IVP Q6H PRN Nausea/Vomiting - Patient Studies Lab Studies: Lab Studies 03/26/17 03/26/17 03/26/17 Range/Units 09:25 07:15 07:15 WBC 11.9 H (4.5-11.0) 10^3/ul RBC 3.69 (3.5-6.1) 10^6/uL Hgb 10.6 L (12.0-16.0) gm/dL Hct 34.0 L (36.0-48.0) % MCV 92.1 (80.0-105.0) fL MCH 28.7 (25.0-35.0) pg MCHC 31.2 (31.0-37.0) g/dl RDW 15.1 H (11.5-14.5) % Plt Count 272 (120.0-450.0) 10^3/uL MPV 10.9 (7.0-11.0) fl Gran % 96.4 H (50.0-68.0) % Lymph % (Auto) 1.2 L (22.0-35.0) % [place] % (Auto) 2.2 (1.0-6.0) % Eos % (Auto) 0.1 L (1.5-5.0) % Baso % (Auto) 0.1 (0.0-3.0) % Gran # 11.48 H (1.4-6.5) Lymph # 0.1 L (1.2-3.4) [place] # 0.3 (0.1-0.6) Eos # 0.0 (0.0-0.7) Baso # 0.01 (0.0-2.0) K/mm3 PT (9.9-11.8) Seconds INR (0.93-1.08) pCO2 62 H (35-45) mm/Hg pO2 184.0 H (80-100) mm/Hg HCO3 22.1 (21-28) mmol/L ABG pH 7.16 L* (7.35-7.45) ABG Total CO2 24.0 (22-28) mmol.L ABG O2 Saturation 100.2 H (95-98) % ABG Base Excess -7.0 L (-2.0-3.0) mmol/L ABG Hemoglobin (11.7-17.4) g/dL ABG Carboxyhemoglobin (0.5-1.5) % POC ABG HHb (Measured) (0-5) % ABG Methemoglobin (0.0-3.0) % ABG O2 Capacity (16-24) mL/dL Hgb O2 Saturation (95.0-98.0) % Glucose 141 H (65-105) mg/dl Lactate 0.7 (0.7-2.1) mmol/L FiO2 % Sodium 141 (132-148) mmol/L Potassium 4.5 (3.6-5.0) mmol/L Chloride 114.0 H 106 (98-107) mmol/L Carbon Dioxide 23 (21-33) mmol/L Anion Gap 17 (10-20) BUN 79 H (7-21) mg/dL Creatinine 1.9 H (0.5-1.4) mg/dL Est GFR ( Amer) 31 Est GFR (Non-Af Amer) 26 Random Glucose 120 H (70-110) mg/dL Calcium 8.4 (8.4-10.5) mg/dL Total Bilirubin 0.4 (0.2-1.3) mg/dL AST 23 (15-39) U/L ALT 20 (7-56) U/L Alkaline Phosphatase 56 (38-133) U/L Total Protein 6.5 (5.8-8.3) g/dL Albumin 3.4 (3.0-4.8) g/dL Globulin 3.0 gm/dL Albumin/Globulin Ratio 1.1 (1.1-1.8) 03/26/17 03/25/17 03/25/17 Range/Units 07:15 07:00 06:30 WBC (4.5-11.0) 10^3/ul RBC (3.5-6.1) 10^6/uL Hgb (12.0-16.0) gm/dL Hct (36.0-48.0) % MCV (80.0-105.0) fL MCH (25.0-35.0) pg MCHC (31.0-37.0) g/dl RDW (11.5-14.5) % Plt Count (120.0-450.0) 10^3/uL MPV (7.0-11.0) fl Gran % (50.0-68.0) % Lymph % (Auto) (22.0-35.0) % [place] % (Auto) (1.0-6.0) % Eos % (Auto) (1.5-5.0) % Baso % (Auto) (0.0-3.0) % Gran # (1.4-6.5) Lymph # (1.2-3.4) [place] # (0.1-0.6) Eos # (0.0-0.7) Baso # (0.0-2.0) K/mm3 PT 26.2 H (9.9-11.8) Seconds INR 2.43 H (0.93-1.08) pCO2 56 H (35-45) mm/Hg pO2 99.0 (80-100) mm/Hg HCO3 20.0 L (21-28) mmol/L ABG pH 7.16 L* (7.35-7.45) ABG Total CO2 21.7 L (22-28) mmol.L ABG O2 Saturation 98.9 H (95-98) % ABG Base Excess -8.6 L (-2.0-3.0) mmol/L ABG Hemoglobin 9.8 L (11.7-17.4) g/dL ABG Carboxyhemoglobin 1.7 H (0.5-1.5) % POC ABG HHb (Measured) 1.1 (0-5) % ABG Methemoglobin 1.0 (0.0-3.0) % ABG O2 Capacity 13.5 L (16-24) mL/dL Hgb O2 Saturation 96.2 (95.0-98.0) % Glucose (65-105) mg/dl Lactate (0.7-2.1) mmol/L FiO2 35 % Sodium 138 (132-148) mmol/L Potassium 5.1 H (3.6-5.0) mmol/L Chloride 101 (98-107) mmol/L Carbon Dioxide 23 (21-33) mmol/L Anion Gap 19 (10-20) BUN 71 H (7-21) mg/dL Creatinine 2.2 H (0.5-1.4) mg/dL Est GFR ( Amer) 26 Est GFR (Non-Af Amer) 22 Random Glucose 101 (70-110) mg/dL Calcium 8.5 (8.4-10.5) mg/dL Total Bilirubin (0.2-1.3) mg/dL AST (15-39) U/L ALT (7-56) U/L Alkaline Phosphatase (38-133) U/L Total Protein (5.8-8.3) g/dL Albumin (3.0-4.8) g/dL Globulin gm/dL Albumin/Globulin Ratio (1.1-1.8) //17 Range/Units 06:30 WBC 10.3 (4.5-11.0) 10^3/ul RBC 3.46 L (3.5-6.1) 10^6/uL Hgb 10.0 L (12.0-16.0) gm/dL Hct 32.5 L (36.0-48.0) % MCV 93.9 (80.0-105.0) fL MCH 28.9 (25.0-35.0) pg MCHC 30.8 L (31.0-37.0) g/dl RDW 14.8 H (11.5-14.5) % Plt Count 256 (120.0-450.0) 10^3/uL MPV 10.4 (7.0-11.0) fl Gran % (50.0-68.0) % Lymph % (Auto) (22.0-35.0) % [place] % (Auto) (1.0-6.0) % Eos % (Auto) (1.5-5.0) % Baso % (Auto) (0.0-3.0) % Gran # (1.4-6.5) Lymph # (1.2-3.4) [place] # (0.1-0.6) Eos # (0.0-0.7) Baso # (0.0-2.0) K/mm3 PT (9.9-11.8) Seconds INR (0.93-1.08) pCO2 (35-45) mm/Hg pO2 (80-100) mm/Hg HCO3 (21-28) mmol/L ABG pH (7.35-7.45) ABG Total CO2 (22-28) mmol.L ABG O2 Saturation (95-98) % ABG Base Excess (-2.0-3.0) mmol/L ABG Hemoglobin (11.7-17.4) g/dL ABG Carboxyhemoglobin (0.5-1.5) % POC ABG HHb (Measured) (0-5) % ABG Methemoglobin (0.0-3.0) % ABG O2 Capacity (16-24) mL/dL Hgb O2 Saturation (95.0-98.0) % Glucose (65-105) mg/dl Lactate (0.7-2.1) mmol/L FiO2 % Sodium (132-148) mmol/L Potassium (3.6-5.0) mmol/L Chloride (98-107) mmol/L Carbon Dioxide (21-33) mmol/L Anion Gap (10-20) BUN (7-21) mg/dL Creatinine (0.5-1.4) mg/dL Est GFR ( Amer) Est GFR (Non-Af Amer) Random Glucose (70-110) mg/dL Calcium (8.4-10.5) mg/dL Total Bilirubin (0.2-1.3) mg/dL AST (15-39) U/L ALT (7-56) U/L Alkaline Phosphatase (38-133) U/L Total Protein (5.8-8.3) g/dL Albumin (3.0-4.8) g/dL Globulin gm/dL Albumin/Globulin Ratio (1.1-1.8) Laboratory Results - last 24 hr 03/25/17 03/25/17 03/25/17 06:30 06:30 07:00 WBC 10.3 RBC 3.46 L Hgb 10.0 L Hct 32.5 L MCV 93.9 MCH 28.9 MCHC 30.8 L RDW 14.8 H Plt Count 256 MPV 10.4 Gran % Lymph % (Auto) [place] % (Auto) Eos % (Auto) Baso % (Auto) Gran # Lymph # [place] # Eos # Baso # PT INR pCO2 56 H pO2 99.0 HCO3 20.0 L ABG pH 7.16 L* ABG Total CO2 21.7 L ABG O2 Saturation 98.9 H ABG Base Excess -8.6 L ABG Hemoglobin 9.8 L ABG Carboxyhemoglobin 1.7 H POC ABG HHb (Measured) 1.1 ABG Methemoglobin 1.0 ABG O2 Capacity 13.5 L Hgb O2 Saturation 96.2 Glucose Lactate FiO2 35 Sodium 138 Potassium 5.1 H Chloride 101 Carbon Dioxide 23 Anion Gap 19 BUN 71 H Creatinine 2.2 H Est GFR ( Amer) 26 Est GFR (Non-Af Amer) 22 Random Glucose 101 Calcium 8.5 Total Bilirubin AST ALT Alkaline Phosphatase Total Protein Albumin Globulin Albumin/Globulin Ratio 03/26/17 03/26/17 03/26/17 07:15 07:15 07:15 WBC 11.9 H RBC 3.69 Hgb 10.6 L Hct 34.0 L MCV 92.1 MCH 28.7 MCHC 31.2 RDW 15.1 H Plt Count 272 MPV 10.9 Gran % 96.4 H Lymph % (Auto) 1.2 L [place] % (Auto) 2.2 Eos % (Auto) 0.1 L Baso % (Auto) 0.1 Gran # 11.48 H Lymph # 0.1 L [place] # 0.3 Eos # 0.0 Baso # 0.01 PT 26.2 H INR 2.43 H pCO2 pO2 HCO3 ABG pH ABG Total CO2 ABG O2 Saturation ABG Base Excess ABG Hemoglobin ABG Carboxyhemoglobin POC ABG HHb (Measured) ABG Methemoglobin ABG O2 Capacity Hgb O2 Saturation Glucose Lactate FiO2 Sodium 141 Potassium 4.5 Chloride 106 Carbon Dioxide 23 Anion Gap 17 BUN 79 H Creatinine 1.9 H Est GFR ( Amer) 31 Est GFR (Non-Af Amer) 26 Random Glucose 120 H Calcium 8.4 Total Bilirubin 0.4 AST 23 ALT 20 Alkaline Phosphatase 56 Total Protein 6.5 Albumin 3.4 Globulin 3.0 Albumin/Globulin Ratio 1.1 03/26/17 09:25 WBC RBC Hgb Hct MCV MCH MCHC RDW Plt Count MPV Gran % Lymph % (Auto) [place] % (Auto) Eos % (Auto) Baso % (Auto) Gran # Lymph # [place] # Eos # Baso # PT INR pCO2 62 H pO2 184.0 H HCO3 22.1 ABG pH 7.16 L* ABG Total CO2 24.0 ABG O2 Saturation 100.2 H ABG Base Excess -7.0 L ABG Hemoglobin ABG Carboxyhemoglobin POC ABG HHb (Measured) ABG Methemoglobin ABG O2 Capacity Hgb O2 Saturation Glucose 141 H Lactate 0.7 FiO2 Sodium Potassium Chloride 114.0 H Carbon Dioxide Anion Gap BUN Creatinine Est GFR ( Amer) Est GFR (Non-Af Amer) Random Glucose Calcium Total Bilirubin AST ALT Alkaline Phosphatase Total Protein Albumin Globulin Albumin/Globulin Ratio Review of Systems - Review of Systems All systems: reviewed and no additional remarkable complaints except ( PER HPI ) - EENT Eyes: UNREMARKABLE Nose/Mouth/Throat: UNREMARKABLE - Cardiovascular Cardiovascular: UNREMARKABLE - Respiratory Respiratory: UNREMARKABLE - Gastrointestinal Gastrointestinal: UNREMARKABLE - Genitourinary Genitourinary: UNREMARKABLE - Integumentary Integumentary: UNREMARKABLE - Neurological Neurological: UNREMARKABLE - Endocrine Endocrine: UNREMARKABLE Critical Care Progress Note - Nutrition Nutrition: Nutrition Category Date Time Status Liquid Diet [DIET] Diets 03/25/17 Breakfast Ordered Assessment/Plan - Assessment and Plan (Free Text) Assessment: 71F with PMH of severe scoliosis and ovarian cancer and severe abdominal distention who presented with hypotension after a paracentesis of intra- abdominal fluid and has received biPAP oxygen support for respiratory hypercapnic acidosis Neuro: No complaints AA&Ox3, gross neuromuscularly intact Continue to monitor Cardio: No complaints or concerns hypotension resolving, HR wnl Continue to monitor Administer IVF as needed to sustain systolic BP>90 Pulm: No symptoms Clinical picture is much better than ABG findings, patient is comfortable on BiPAP and NC able to converse without SOB, awake and alert, satting 95-100% on saO2 CXR: severe scoliosis with decreased lung volume, no other pathology Abg on NC: 7.16pg, cO2 62, O2 184, bicarb 22.1 Likely chronic hypercapneic respiratory acidosis d/t chronic severe scoliosis. currently exacerbated by distended abdomen restricting lung field further Continue to monitor O2sats Do not trend ABG's as care should be focused on clinical symptoms rather than the ABG findings as they do not correlate with clinical status Pulmonology recs appreciated Return to BiPAP for somnolence or drop in SaO2 or respiratory distress GI: Patient has no pain, nausea, or vomiting Abdomen distended but soft, no signs of peritonitis Continue to monitor for any changes Continue chemotherapy per Dr. Kaur for ovarian cancer continue liquid diet as tolerated Nephro: Patient is oliguric, averaging 0.3cc of urine per kg/h. Creatinine is trending down 1.9 from 2.2 Continue to monitor Strongly suggest nephrology consult--patient has very little respiratory reserve and her bicarb is not responding appropriately to present acid base status. If patient looses bicarb in the urine it could send her into respiratory failure Strict I&O's, trend CMP's ID: afebrile, VSS WBC 11.9--down from admit, procalcitonin elevated at admission Caontinue antibiotics per ID Continue to monitor vitals and CBC CXR: no infiltrate Endo: electrolytes all at satisfactory levels, continue to monitor and supplement as necessary Patient seen and discussed with Dr. Marisela Morel, PGY1 <Marisela MARY,Olgajason H - Last Filed: 03/26/17 18:49> CCU Objective - Vital Signs / Intake & Output Vital Signs (Last 4 hours): Vital Signs Pulse Resp BP Pulse Ox 03/26/17 16:29 82 03/26/17 15:45 82 23 117/91 H 98 03/26/17 15:40 80 19 113/65 99 03/26/17 15:35 79 19 119/66 99 03/26/17 15:30 79 19 117/62 97 03/26/17 15:25 77 21 117/53 L 98 03/26/17 15:20 79 17 111/60 99 03/26/17 15:15 79 118/51 L 96 03/26/17 15:10 78 16 121/62 100 03/26/17 15:05 78 18 121/65 100 03/26/17 15:00 79 19 117/58 L 98 03/26/17 14:55 80 20 125/66 100 03/26/17 14:50 82 21 112/57 L 99 03/26/17 14:49 82 Intake and Output (Last 8hrs): Intake & Output 03/26/17 03/26/17 03/26/17 06:59 14:59 22:59 Intake Total 100 Output Total 550 Balance -450 Weight 176 lb 176 lb Intake: IV 100 Left Hand 100 Output: Urine 550 Urine, Voided 550 Other: Voiding Method Bedpan # Bowel Movements 1 - Medications Active Medications: Active Medications Generic Name Dose Route Start Last Admin Trade Name Freq PRN Reason Stop Dose Admin Acetaminophen 650 mg 03/22/17 19:24 Tylenol 325mg Tab PO Q4H PRN Pain, Mild (1-3) Albuterol/Ipratropium 3 ml 03/26/17 20:00 Duoneb 3 Mg/0.5 Mg (3 Ml) Ud IH [id number] MARCIAL Enoxaparin Sodium 60 mg 03/23/17 12:00 03/26/17 12:12 Lovenox SC 60 mg Q12H MARCIAL Administration Protocol Meropenem 1g/NS 100mL IVPB 1 gm in 100 mls @ 100 mls/hr 03/23/17 13:15 10:12 Meropenem 1g/Ns 100ml Ivpb IVPB 03/30/17 13:16 100 mls/hr Q12 MARCIAL Administration Protocol Famotidine 20 mg in 50 mls @ 100 mls/hr 03/24/17 21:00 03/26/17 10:13 Pepcid 20mg/50ml Premix IVPB 100 mls/hr DAILY MARCIAL Administration Methylprednisolone 40 mg 03/26/17 22:00 Solu-Medrol IV Q8H MARCIAL Ondansetron HCl 4 mg 03/22/17 16:11 Zofran Inj IVP Q6H PRN Nausea/Vomiting - Patient Studies Lab Studies: Lab Studies 03/26/17 03/26/17 03/26/17 Range/Units 09:25 07:15 07:15 WBC 11.9 H (4.5-11.0) 10^3/ul RBC 3.69 (3.5-6.1) 10^6/uL Hgb 10.6 L (12.0-16.0) gm/dL Hct 34.0 L (36.0-48.0) % MCV 92.1 (80.0-105.0) fL MCH 28.7 (25.0-35.0) pg MCHC 31.2 (31.0-37.0) g/dl RDW 15.1 H (11.5-14.5) % Plt Count 272 (120.0-450.0) 10^3/uL MPV 10.9 (7.0-11.0) fl Gran % 96.4 H (50.0-68.0) % Lymph % (Auto) 1.2 L (22.0-35.0) % [place] % (Auto) 2.2 (1.0-6.0) % Eos % (Auto) 0.1 L (1.5-5.0) % Baso % (Auto) 0.1 (0.0-3.0) % Gran # 11.48 H (1.4-6.5) Lymph # 0.1 L (1.2-3.4) [place] # 0.3 (0.1-0.6) Eos # 0.0 (0.0-0.7) Baso # 0.01 (0.0-2.0) K/mm3 PT (9.9-11.8) Seconds INR (0.93-1.08) pCO2 62 H (35-45) mm/Hg pO2 184.0 H (80-100) mm/Hg HCO3 22.1 (21-28) mmol/L ABG pH 7.16 L* (7.35-7.45) ABG Total CO2 24.0 (22-28) mmol.L ABG O2 Saturation 100.2 H (95-98) % ABG Base Excess -7.0 L (-2.0-3.0) mmol/L ABG Hemoglobin (11.7-17.4) g/dL ABG Carboxyhemoglobin (0.5-1.5) % POC ABG HHb (Measured) (0-5) % ABG Methemoglobin (0.0-3.0) % ABG O2 Capacity (16-24) mL/dL Hgb O2 Saturation (95.0-98.0) % Glucose 141 H (65-105) mg/dl Lactate 0.7 (0.7-2.1) mmol/L FiO2 % Sodium 141 (132-148) mmol/L Potassium 4.5 (3.6-5.0) mmol/L Chloride 114.0 H 106 (98-107) mmol/L Carbon Dioxide 23 (21-33) mmol/L Anion Gap 17 (10-20) BUN 79 H (7-21) mg/dL Creatinine 1.9 H (0.5-1.4) mg/dL Est GFR ( Amer) 31 Est GFR (Non-Af Amer) 26 Random Glucose 120 H (70-110) mg/dL Calcium 8.4 (8.4-10.5) mg/dL Total Bilirubin 0.4 (0.2-1.3) mg/dL AST 23 (15-39) U/L ALT 20 (7-56) U/L Alkaline Phosphatase 56 (38-133) U/L Total Protein 6.5 (5.8-8.3) g/dL Albumin 3.4 (3.0-4.8) g/dL Globulin 3.0 gm/dL Albumin/Globulin Ratio 1.1 (1.1-1.8) 03/26/17 03/25/17 03/25/17 Range/Units 07:15 07:00 06:30 WBC (4.5-11.0) 10^3/ul RBC (3.5-6.1) 10^6/uL Hgb (12.0-16.0) gm/dL Hct (36.0-48.0) % MCV (80.0-105.0) fL MCH (25.0-35.0) pg MCHC (31.0-37.0) g/dl RDW (11.5-14.5) % Plt Count (120.0-450.0) 10^3/uL MPV (7.0-11.0) fl Gran % (50.0-68.0) % Lymph % (Auto) (22.0-35.0) % [place] % (Auto) (1.0-6.0) % Eos % (Auto) (1.5-5.0) % Baso % (Auto) (0.0-3.0) % Gran # (1.4-6.5) Lymph # (1.2-3.4) [place] # (0.1-0.6) Eos # (0.0-0.7) Baso # (0.0-2.0) K/mm3 PT 26.2 H (9.9-11.8) Seconds INR 2.43 H (0.93-1.08) pCO2 56 H (35-45) mm/Hg pO2 99.0 (80-100) mm/Hg HCO3 20.0 L (21-28) mmol/L ABG pH 7.16 L* (7.35-7.45) ABG Total CO2 21.7 L (22-28) mmol.L ABG O2 Saturation 98.9 H (95-98) % ABG Base Excess -8.6 L (-2.0-3.0) mmol/L ABG Hemoglobin 9.8 L (11.7-17.4) g/dL ABG Carboxyhemoglobin 1.7 H (0.5-1.5) % POC ABG HHb (Measured) 1.1 (0-5) % ABG Methemoglobin 1.0 (0.0-3.0) % ABG O2 Capacity 13.5 L (16-24) mL/dL Hgb O2 Saturation 96.2 (95.0-98.0) % Glucose (65-105) mg/dl Lactate (0.7-2.1) mmol/L FiO2 35 % Sodium 138 (132-148) mmol/L Potassium 5.1 H (3.6-5.0) mmol/L Chloride 101 (98-107) mmol/L Carbon Dioxide 23 (21-33) mmol/L Anion Gap 19 (10-20) BUN 71 H (7-21) mg/dL Creatinine 2.2 H (0.5-1.4) mg/dL Est GFR ( Amer) 26 Est GFR (Non-Af Amer) 22 Random Glucose 101 (70-110) mg/dL Calcium 8.5 (8.4-10.5) mg/dL Total Bilirubin (0.2-1.3) mg/dL AST (15-39) U/L ALT (7-56) U/L Alkaline Phosphatase (38-133) U/L Total Protein (5.8-8.3) g/dL Albumin (3.0-4.8) g/dL Globulin gm/dL Albumin/Globulin Ratio (1.1-1.8) // Range/Units 06:30 WBC 10.3 (4.5-11.0) 10^3/ul RBC 3.46 L (3.5-6.1) 10^6/uL Hgb 10.0 L (12.0-16.0) gm/dL Hct 32.5 L (36.0-48.0) % MCV 93.9 (80.0-105.0) fL MCH 28.9 (25.0-35.0) pg MCHC 30.8 L (31.0-37.0) g/dl RDW 14.8 H (11.5-14.5) % Plt Count 256 (120.0-450.0) 10^3/uL MPV 10.4 (7.0-11.0) fl Gran % (50.0-68.0) % Lymph % (Auto) (22.0-35.0) % [place] % (Auto) (1.0-6.0) % Eos % (Auto) (1.5-5.0) % Baso % (Auto) (0.0-3.0) % Gran # (1.4-6.5) Lymph # (1.2-3.4) [place] # (0.1-0.6) Eos # (0.0-0.7) Baso # (0.0-2.0) K/mm3 PT (9.9-11.8) Seconds INR (0.93-1.08) pCO2 (35-45) mm/Hg pO2 (80-100) mm/Hg HCO3 (21-28) mmol/L ABG pH (7.35-7.45) ABG Total CO2 (22-28) mmol.L ABG O2 Saturation (95-98) % ABG Base Excess (-2.0-3.0) mmol/L ABG Hemoglobin (11.7-17.4) g/dL ABG Carboxyhemoglobin (0.5-1.5) % POC ABG HHb (Measured) (0-5) % ABG Methemoglobin (0.0-3.0) % ABG O2 Capacity (16-24) mL/dL Hgb O2 Saturation (95.0-98.0) % Glucose (65-105) mg/dl Lactate (0.7-2.1) mmol/L FiO2 % Sodium (132-148) mmol/L Potassium (3.6-5.0) mmol/L Chloride (98-107) mmol/L Carbon Dioxide (21-33) mmol/L Anion Gap (10-20) BUN (7-21) mg/dL Creatinine (0.5-1.4) mg/dL Est GFR ( Amer) Est GFR (Non-Af Amer) Random Glucose (70-110) mg/dL Calcium (8.4-10.5) mg/dL Total Bilirubin (0.2-1.3) mg/dL AST (15-39) U/L ALT (7-56) U/L Alkaline Phosphatase (38-133) U/L Total Protein (5.8-8.3) g/dL Albumin (3.0-4.8) g/dL Globulin gm/dL Albumin/Globulin Ratio (1.1-1.8) Laboratory Results - last 24 hr 03/25/17 03/25/17 03/25/17 06:30 06:30 07:00 WBC 10.3 RBC 3.46 L Hgb 10.0 L Hct 32.5 L MCV 93.9 MCH 28.9 MCHC 30.8 L RDW 14.8 H Plt Count 256 MPV 10.4 Gran % Lymph % (Auto) [place] % (Auto) Eos % (Auto) Baso % (Auto) Gran # Lymph # [place] # Eos # Baso # PT INR pCO2 56 H pO2 99.0 HCO3 20.0 L ABG pH 7.16 L* ABG Total CO2 21.7 L ABG O2 Saturation 98.9 H ABG Base Excess -8.6 L ABG Hemoglobin 9.8 L ABG Carboxyhemoglobin 1.7 H POC ABG HHb (Measured) 1.1 ABG Methemoglobin 1.0 ABG O2 Capacity 13.5 L Hgb O2 Saturation 96.2 Glucose Lactate FiO2 35 Sodium 138 Potassium 5.1 H Chloride 101 Carbon Dioxide 23 Anion Gap 19 BUN 71 H Creatinine 2.2 H Est GFR ( Amer) 26 Est GFR (Non-Af Amer) 22 Random Glucose 101 Calcium 8.5 Total Bilirubin AST ALT Alkaline Phosphatase Total Protein Albumin Globulin Albumin/Globulin Ratio 03/26/17 03/26/17 03/26/17 07:15 07:15 07:15 WBC 11.9 H RBC 3.69 Hgb 10.6 L Hct 34.0 L MCV 92.1 MCH 28.7 MCHC 31.2 RDW 15.1 H Plt Count 272 MPV 10.9 Gran % 96.4 H Lymph % (Auto) 1.2 L [place] % (Auto) 2.2 Eos % (Auto) 0.1 L Baso % (Auto) 0.1 Gran # 11.48 H Lymph # 0.1 L [place] # 0.3 Eos # 0.0 Baso # 0.01 PT 26.2 H INR 2.43 H pCO2 pO2 HCO3 ABG pH ABG Total CO2 ABG O2 Saturation ABG Base Excess ABG Hemoglobin ABG Carboxyhemoglobin POC ABG HHb (Measured) ABG Methemoglobin ABG O2 Capacity Hgb O2 Saturation Glucose Lactate FiO2 Sodium 141 Potassium 4.5 Chloride 106 Carbon Dioxide 23 Anion Gap 17 BUN 79 H Creatinine 1.9 H Est GFR ( Amer) 31 Est GFR (Non-Af Amer) 26 Random Glucose 120 H Calcium 8.4 Total Bilirubin 0.4 AST 23 ALT 20 Alkaline Phosphatase 56 Total Protein 6.5 Albumin 3.4 Globulin 3.0 Albumin/Globulin Ratio 1.1 03/26/17 09:25 WBC RBC Hgb Hct MCV MCH MCHC RDW Plt Count MPV Gran % Lymph % (Auto) [place] % (Auto) Eos % (Auto) Baso % (Auto) Gran # Lymph # [place] # Eos # Baso # PT INR pCO2 62 H pO2 184.0 H HCO3 22.1 ABG pH 7.16 L* ABG Total CO2 24.0 ABG O2 Saturation 100.2 H ABG Base Excess -7.0 L ABG Hemoglobin ABG Carboxyhemoglobin POC ABG HHb (Measured) ABG Methemoglobin ABG O2 Capacity Hgb O2 Saturation Glucose 141 H Lactate 0.7 FiO2 Sodium Potassium Chloride 114.0 H Carbon Dioxide Anion Gap BUN Creatinine Est GFR ( Amer) Est GFR (Non-Af Amer) Random Glucose Calcium Total Bilirubin AST ALT Alkaline Phosphatase Total Protein Albumin Globulin Albumin/Globulin Ratio Critical Care Progress Note - Nutrition Nutrition: Nutrition Category Date Time Status Liquid Diet [DIET] Diets 03/25/17 Breakfast Ordered Attending/Attestation - Attestation I have personally seen and examined this patient.: Yes I have fully participated in the care of the patient.: Yes I have reviewed all pertinent clinical information: Yes Notes (Text): 03/26/17 18:47 71 y/o F w/ Hypercarbic resp failure Possible abd comparment syndrome w/ LUKE resolving post paracentesis . urine output and Creatnine improving. Hypercarbic failure improved w/ BIPAP when sleeping, but at baseline the patient has scoliosis and restrictive lung disease. No narcotics or Benzo. Despite PH 7.16 patient is aware, alert and following commands w/ RR 18-20. Currently on Chemotherapy per ONC. Previously DNR.DNI. Now full code. improving. dvt p Heparin sq tid cc time 65 min
--- NOTE | 2017-03-26 19:00 | PN ---
DATE: 03/26/2017 The patient is in CCU bed 3. The patient was seen earlier today in the unit. SUBJECTIVE: The patient is in the CCU bed. She was on BiPAP, which has been taken off. She is arou sable. She had an intelligent conversation with me. I asked her if she was in any pain. She is not in any pain. Denies any shortness of breath. She feels the belly is slightly tender. She feels th at she has gone to the bathroom a few times, which was on the loose side. PHYSICAL EXAMINATION: GENERAL: The patient is examined in bed. She is lying in the unit. Is off the BiPAP for now. VITAL SIGNS: Blood pressure is 86/40, heart rate is 72, respirations 18-20, T-max is 97. HEENT: Head is normocephalic, atraumatic. Temporal muscle wasting is noted. Examination of the bharath pharynx reveals no oropharyngeal lesions. Tongue is moist. NECK: Supple. There is no adenopathy. No jugular venous distention noted. The patient has severe kyphoscoliosis. LUNGS: Reveals bilateral equal air entry with decreased breath sounds in the bases. CARDIOVASCULAR: Reveals S1 and S2 to be normal. No gallop is heard. ABDOMEN: Significantly distended, though the distention is softer than before post-chemotherapy. Juliocesar wel sounds are present. No rebound, rigidity or guarding is noted. EXTREMITIES: The patient has 3+ pitting edema of both lower extremities. INTAKE AND OUTPUT: 300/400. LABORATORY DATA: Reveals a white count of 12.5, hemoglobin 10, hematocrit 33, platelet count of 248, 000. Sodium is 137, K is 5.1, chloride 99, CO2 of 25, BUN is 59, creatinine 2.3, glucose 90, calcium 8.5. MEDICATIONS: Reviewed. Lovenox 60 q.12 hours. The patient is on Merrem 1 gram q.12. She is on Pep rian, Tylenol and Zofran. ASSESSMENT: I had a long talk with the elementary summer school teacher and the resident taking care of the patient as we ll. 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 The patient was admitted to the hospital a fter having a port inserted and tapping of ascitic fluid. She was found to be persistently hypotensi ve. Etiology of the hypotension was thought to be either coexisting or a new onset of infection and/ or probably compartmentalization because of mechanical pressure of her tremendous disease with omenta l caking on the inferior vena cava. The patient was transferred to the unit and she received the fir st dose of chemotherapy, modified for her kidney function with carboplatin and Taxol. Our plan is to give her at least ____ chemotherapy every 2 weeks for 3-4 cycles and see which direction she moves. Condition on examination today is still guarded. The patient is aware of it, but we are going to do everything in our power to see if can pull her out of this as far as treatments are concerned. The patient still has respiratory acidosis and this is limited by the factor that she has significant kyp hoscoliosis and the diaphragm is being restricted by the massive disease infradiaphragmatically, caus ed by the tumor with its caking. Gram-negative bacteremia. We will plan on continuing monitoring th e patient at this time aggressively in the unit. Renal function hopefully will continue to improve a s the pressure mechanically gets better post chemotherapy over the next 72 hours. The patient receiv ed Decadron in preparation for the chemotherapy which she already had. We are going to have to monit or now her counts going down over the next several days. We will continue antibiotics for cover for gram-negative bacteria and dose all antibiotics for creatinine clearance somewhere between 10 and 30. The patient continues to remain critically ill as aforementioned. I have spoken to the family incl uding the immediate friends and her sister from [facility]. Time spent more than 45 minutes. We will continue to monitor the labs very carefully over the next 72 hours. Brock Kaur MD cc: [id number] TT: 03/26/2017 18:59:26 Confirmation # [id number] Dictation # [id number]
--- NOTE | 2017-03-26 20:27 | PN ---
DATE: 03/26/2017 SUBJECTIVE: The patient is seen lying in bed in the ICU. She is off Bipap and she is receiving oxygen via nasal cannula. She appears comfortable. She denies any pain. She denies any shortness of breath. She denies any chest tightness. PHYSICAL EXAMINATION: GENERAL: Elderly lady lying in bed. VITAL SIGNS: Blood pressure 117/91, heart rate 80, respiratory rate 23, temperature 97.5. HEENT: Normocephalic, atraumatic. NECK: Supple, no JVD. LUNGS: Bilateral equal air entry, bilateral rhonchi, basal rales. CARDIAC: S1, S2, regular rate and rhythm. No murmur, no rub. ABDOMEN: Obese, distended, soft, tense, no guarding, no rigidity, bowel sounds present. EXTREMITIES: 3+ pitting edema of the lower extremities. INTAKE AND OUTPUT: 100/515. LABORATORY DATA: WBC 11.9, hemoglobin 10.6, hematocrit 34, platelets 272. Sodium 141, potassium 4.5, chloride 106, CO2 23, BUN 79, creatinine 1.9, glucose 120, calcium 8.4, AST 23, ALT 20, albumin 3.4. CURRENT MEDICATIONS: Lovenox, meropenem 1 gram q. 12, Pepcid, Tylenol, Zofran. Blood cultures Gram-negative rods. ASSESSMENT AND PLAN: 1. Acute kidney injury, suspect acute tubular necrosis in the setting of contrast exposure, sepsis, hypotension. 2. 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 3. Severe kyphoscoliosis. 4. Chronic respiratory acidosis. 5. Respiratory failure. 6. Sepsis, Gram-negative bacteremia. 7. Severe hypotension. 8. Anasarca/edema. PLAN: 1. Continue antibiotics to cover for Gram-negative bacteremia. 2. Dose antibiotics for creatinine clearance 10-30 mL per minute. 3. Renal function seems to be turning around, showing some improvement. 4. The patient starting chemotherapy for her cancer. 5. Chronic respiratory acidosis, no need for bicarb supplementation 5. Remains critically ill, prognosis is grim. Case discussed with ICU residents, case discussed with Dr. Antonio, case discussed with ICU staff. More than 35 minutes were spent in the care of this critically ill patient. Susannah Velasquez MD cc: [id number] TT: 03/26/2017 20:26:34 Confirmation # [id number] Dictation # [id number] mn MAGNUS
[2017-03-26] MEDS: MethylPREDNISolone 40 mg Vial IV SCH (21:33)
--- NOTE | 2017-03-26 22:17 | CON ---
DATE: 03/26/2017 REFERRING PHYSICIAN: Dr. Delgado Lamas. REASON FOR CONSULT: Respiratory failure. HISTORY OF PRESENT ILLNESS: This is a 71-year-old female with hypertension, history of DVT, recently diagnosed with ovarian cancer, history of scoliosis, ascites requiring paracentesis, has a central c atheter placement for possible chemotherapy. While she was on Med/Surg floor, became hypotensive, tr ansferred to ICU and with respiratory failure requiring noninvasive ventilation, was found to have CO 2 retention and hypoxemia. Presently on noninvasive ventilation, still very lethargic, but arousable . There is no hemoptysis, no hematemesis. She has a distended abdomen. No dysuria. No leg pain or leg swelling. PAST MEDICAL HISTORY: Hypertension, history of DVT, history for , pneumonia, metastatic ovarian carcinoma. SOCIAL HISTORY: Stopped smoking recently. Denies any history of alcohol abuse. ALLERGIES: None known. FAMILY HISTORY: No significant cardiopulmonary disease reported. MEDICATIONS: She is on Lovenox 60 mg subQ daily. Also getting meropenem is 1 g IV q. 12 hours, Pepc id 20 mg q. daily, Tylenol p.r.n., Zofran p.r.n. REVIEW OF SYSTEMS: Very lethargic on noninvasive ventilation, but arousable. There is not much coug h, no sputum production, no hemoptysis. Distended abdomen. Denies any diarrhea, dysuria. No leg pa in or leg swelling. PHYSICAL EXAMINATION: GENERAL: Lethargic on BiPAP. VITAL SIGNS: Temperature is 98, heart rate is 88, respiratory rate is 20, blood pressure 117/91, pul se ox 98% on noninvasive ventilation. HEENT: Small oral cavity. Crowded airway. NECK: Short, thick neck. LUNGS: Has a poor airflow. HEART: S1 and S2. ABDOMEN: Distended, positive bowel sounds, tenderness. EXTREMITIES: There is not much edema. NEUROLOGIC: Lethargic, but arousable. LABORATORY DATA: Shows hemoglobin 10.6, hematocrit 34.0, WBC 11.9 and platelet count is 272. INR 2. 43. ABG shows pH 7.16, pCO2 of 61, O2 of 184; this is on noninvasive ventilation. Sodium 141, potas sium 4.5, chloride 106, bicarbonate 23, BUN 79, creatinine 1.9, glucose is 120, calcium is 8.4, AST 2 3, ALT 20, alkaline phosphatase 56, albumin is 3.4. Blood culture has gram-negative rods. Nasal MRS A is negative. Chest x-ray done today shows no active pulmonary disease. No significant pleural eff usion. Has an echocardiogram obtained in 01/2017, which shows LV ejection fraction 60%-65%, mitral r egurgitation is trace, trace tricuspid regurg with right ventricle systolic pressure 31. IMPRESSION AND PLAN: Ovarian cancer with abdominal involvement, pleural ascites, history of hyperten zhao, DVT, kyphoscoliosis, respiratory failure with CO2 retention and hypoxemia. Had a venous Dopple r done on 03/23/2017 showing bilateral popliteal DVT. There is a reason to explain why she has a hyp oventilation syndrome, does have scoliosis and very tense abdomen, maybe diaphragm is totally dysfunc tional at the present time, maybe a component of sleep apnea. If there is a PE, she is already on an ticoagulation. I will suggest getting a new echocardiogram to assess left ventricular and right vent ricular function. Also will suggest getting a CT scan of the chest, abdomen and pelvis when some ext ent is stable. For now, continue BiPAP, add inhaled bronchodilator. We will add steroids to attempt to decrease inflammation and metastatic disease in the abdomen to decrease some pressure, will the d iaphragm work. Thank you and will follow with you. Danial Dumont MD cc: [id number] TT: 03/26/2017 22:17:20 Confirmation # [id number] Dictation # [id number] mn
[2017-03-26] MEDS ORDERED: Barium Sulfate Susp 2.1% w/v, 2.0% w/w 450 mL Bottle PO ONE (22:30)
[2017-03-27 06:41] LABS: ADD MANUAL DIFF? NO
[2017-03-27] MEDS: MethylPREDNISolone 40 mg Vial IV SCH ×3 (06:56→21:47)
[2017-03-27 06:57] LABS: ALB/GLOB RATIO 1.2 (1.1-1.8); BILIRUBIN,TOTAL 0.5 mg/dL (0.2-1.3); CALCIUM 8.6 mg/dL (8.4-10.5); POTASSIUM 4.9 mmol/L (3.6-5.0)
[2017-03-27 07:10] LABS: GRAN # 11.54 (1.4-6.5); GRAN % 97.9 % (50.0-68.0); HEMATOCRIT 33.6 % (36.0-48.0); LYMPH # 0.1 (1.2-3.4); LYMPH % 0.8 % (22.0-35.0); MEAN CELL VOLUME 91.3 fL (80.0-105.0); MEAN CORPUSCULAR HEMOGLOBIN 29.1 pg (25.0-35.0); MEAN CORPUSCULAR HGB CONC 31.8 g/dl (31.0-37.0); MEAN PLATELET VOLUME 10.8 fl (7.0-11.0); MONO # 0.2 (0.1-0.6); MONO % 1.3 % (1.0-6.0); PLATELET COUNT 244 10^3/uL (120.0-450.0); RED CELL DISTRIBUTION WIDTH 15.1 % (11.5-14.5); WHITE BLOOD COUNT 11.8 10^3/ul (4.5-11.0)
[2017-03-27] MEDS: Albuterol-Ipratrop 3 mg / 0.5 (3 ml) UD IH SCH ×3 (08:03→20:00)
[2017-03-27] MEDS: Meropenem 1g/NS 100mL IVPB 1 GM/100 ML PIGGYBACK IVPB SCH ×2 (09:01→21:46)
[2017-03-27] MEDS: Famotidine 20mg/50ml 20 MG/50 ML BAG IVPB SCH (09:04)
--- NOTE | 2017-03-27 10:40 | PN ---
DATE: 03/27/2017 SUBJECTIVE: The patient is resting in bed with BiPAP set at 20/6 with O2 support and at this time, s he states that she is fairly comfortable with her breathing. The patient has no present chest pain o r abdominal pain and is scheduled to have an echocardiogram of the heart today. No nausea, vomiting. No active diarrhea and vital signs are fairly stable. PHYSICAL EXAMINATION: VITAL SIGNS: Note that her temperature is 98.8, pulse is 79, respirations are 21, and BP is 116/62. SKIN: Warm and dry. HEENT: Head atraumatic, normocephalic. Eyes reactive to light. Ear, nose and throat seemed to be w ithin normal limits. NECK: Supple. No JVD, no thyroid enlargement, no lymph nodes. HEART: Has a regular rate and rhythm. Normal S1, S2. LUNGS: Reveal rare rhonchi bilaterally with decreased breath sounds at the bases. ABDOMEN: Soft, decreased bowel sounds. No organomegaly noted. GENITALIA AND RECTAL: Deferred. MUSCULOSKELETAL: No joint deformities. EXTREMITIES: Reveal lower extremity edema. NEUROLOGIC: She is awake and alert and moving all extremities. LABORATORY DATA: As far as her laboratories are concerned, her white count is 11.8, hemoglobin is 10 .7 and hematocrit 33.6 with platelets of 244,000. Her PT is 26.2, INR is 2.43 and her PTT is 39.2. Arterial blood gas is pending. Sodium is 143, potassium 4.9, chloride 110, CO2 of 23 with a BUN of 8 8, creatinine of 1.7 and glucose is 134. IMPRESSION: This patient has metastatic ovarian carcinoma with respiratory failure with hypercapnia as well as respiratory acidosis. The patient has severe kyphoscoliosis and ascites along with an abd ominal mass. It is noted that she has Gram-negative bacteremia as well as anemia, renal insufficienc y, and is status post hypotension. PLAN: We will continue with BiPAP and monitor her vitals closely as well as her O2 saturation. The patient is on DuoNeb as far as a bronchodilator. She continues to get Lovenox as anticoagulant. She is on meropenem for her antibiotics and Solu-Medrol 40 mg q. 8 hours. We will continue to treat agg ressively, follow closely along with the other consultants and the primary care doctor. Shayne Brady MD cc: [id number] TT: 03/27/2017 10:39:16 Confirmation # [id number] Dictation # [id number] tn
[2017-03-27] MEDS: Enoxaparin 60 mg Syringe SC SCH ×2 (11:55)
--- NOTE | 2017-03-27 12:23 | CP.PCM.PN ---
Subjective - Date & Time of Evaluation Date of Evaluation: 03/27/17 Time of Evaluation: 09:40 - Subjective Subjective: Comfortable, still on BiPAP, afebrile, not in distress. Objective - Vital Signs/Intake and Output Vital Signs (last 24 hours): Temp Pulse Resp BP Pulse Ox 98.8 F 81 23 118/59 L 99 03/27/17 04:00 03/27/17 12:05 03/27/17 12:05 03/27/17 12:05 03/27/17 12:05 Intake and Output: 03/27/17 03/27/17 06:59 18:59 Intake Total 160 Output Total 1000 Balance -840 - Medications Medications: Current Medications Acetaminophen (Tylenol 325mg Tab) 650 mg PO Q4H PRN PRN Reason: Pain, Mild (1-3) Albuterol/Ipratropium (Duoneb 3 Mg/0.5 Mg (3 Ml) Ud) 3 ml IH [id number] [facility] Last Admin: 03/27/17 08:03 Dose: 3 ml Enoxaparin Sodium (Lovenox) 60 mg SC Q12H MARCIAL PRN Reason: Protocol Last Admin: 03/27/17 11:55 Dose: 60 mg Meropenem 1g/NS 100mL IVPB (Meropenem 1g/Ns 100ml Ivpb) 1 gm in 100 mls @ 100 mls/hr IVPB Q12 MARCIAL PRN Reason: Protocol Stop: 03/30/17 13:16 Last Admin: 03/27/17 09:01 Dose: 100 mls/hr Famotidine (Pepcid 20mg/50ml Premix) 20 mg in 50 mls @ 100 mls/hr IVPB DAILY [facility] Last Admin: 03/27/17 09:04 Dose: 100 mls/hr Methylprednisolone (Solu-Medrol) 40 mg IV Q8H [facility] Last Admin: 03/27/17 06:56 Dose: 40 mg Ondansetron HCl (Zofran Inj) 4 mg IVP Q6H PRN PRN Reason: Nausea/Vomiting - Labs Labs: 03/27/17 06:33 03/27/17 06:33 PT 26.2 Seconds (9.9-11.8) H 03/26/17 07:15 INR 2.43 (0.93-1.08) H 03/26/17 07:15 APTT 39.2 Seconds (23.7-30.8) H 03/22/17 10:33 - Constitutional Appears: Non-toxic, No Acute Distress - Head Exam Head Exam: NORMAL INSPECTION - ENT Exam ENT Exam: Mucous Membranes Moist - Neck Exam Neck Exam: absent: Lymphadenopathy, Meningismus - Respiratory Exam Respiratory Exam: Decreased Breath Sounds Additional comments: right anterior chest wall port-a-cath site clean and non-tender - Cardiovascular Exam Cardiovascular Exam: +S1, +S2 - GI/Abdominal Exam GI & Abdominal Exam: Distended, Soft. absent: Tenderness Assessment and Plan - Assessment and Plan (Free Text) Plan: Assessment Severe sepsis with acute renal failure due to gram negative bacilli bacteremia in a patient with advanced stage ovarian cancer with ascites, GI or source, unlikely port as source since it was only placed a day prior to the bacteremia history of pneumonia history of tracheostomy S/P bilateral herniorraphy HTN history of bilateral DVT Plan continue Merrem (day 3) pending identification and sensitivities of the gram negative bacilli in the blood; repeat blood cx so far negative Discussed with Dr. Kaur previously that we are able to start chemotherapy since she is on antibiotics Will continue to follow clinically
--- NOTE | 2017-03-27 12:53 | CARD ---
APPROVED REPORT EXAM: Two-dimensional and M-mode echocardiogram with Doppler and color Doppler. 2D DIMENSIONS IVSd1.0 (0.7-1.1cm)LVDd3.3 (3.9-5.9cm) PWd0.9 (0.7-1.1cm)LVDs2.0 (2.5-4.0cm) FS (%) 41.6 %LVEF (%)73.8 (>50%) M-Mode DIMENSIONS Left Atrium (MM)3.30 (2.5-4.0cm)Aortic Root3.30 (2.2-3.7cm) Aortic Cusp Exc.1.80 (1.5-2.0cm) Aortic Valve AoV Peak Kioxpizc931.0cm/sAoV VTI30.4cmAO Peak GR.7mmHg LVOT Peak Eikipojf567.0cm/sLVOT VTI25.80cmAO Mean GR.4mmHg Mitral Valve MV E Hlfyhndr62.4cm/sMV A Xglgzyri72.7cm/sE/A ratio0.8 TDI Lateral E' Peak V11.30cm/sMedial E' Peak V7.41cm/sE/Lateral E'7.4 E/Medial E'11.3 Tricuspid Valve TR Peak Kklbuoth629yo/sRAP RHANIGHN39gbWzTE Peak Gr.5mmHg [id number] LEFT VENTRICLE The left ventricle is normal size. There is normal left ventricular wall thickness. The left ventricular function is normal. The left ventricular ejection fraction is within the normal range. There is normal LV segmental wall motion. Transmitral Doppler flow pattern is Grade I-abnormal relaxation pattern. RIGHT VENTRICLE The right ventricle is normal size. There is normal right ventricular wall thickness. The right ventricular systolic function is normal. ATRIA The left atrium size is normal. The right atrium size is normal. AORTIC VALVE The aortic valve is mildly sclerotic. No aortic regurgitation is present. MITRAL VALVE The mitral valve is normal in structure. There is no mitral valve regurgitation noted. TRICUSPID VALVE The tricuspid valve is normal in structure. There is no pulmonary hypertension. GREAT VESSELS The aortic root is normal in size. The IVC is normal in size and collapses >50% with inspiration. PERICARDIAL EFFUSION There is no pericardial effusion. <Conclusion> The left ventricle is normal size. There is normal left ventricular wall thickness. The left ventricular function is normal. The left ventricular ejection fraction is within the normal range. There is normal LV segmental wall motion. Transmitral Doppler flow pattern is Grade I-abnormal relaxation pattern. There is no pulmonary hypertension.
--- NOTE | 2017-03-27 17:23 | CT ---
PROCEDURE: CT Chest, Abdomen and Pelvis without intravenous contrast HISTORY: odstruction COMPARISON: CT abdomen/ pelvis 03/01/2017 TECHNIQUE: Radiation dose: Total exam DLP = 1084.01 mGy-cm. This CT exam was performed using one or more of the following dose reduction techniques: Automated exposure control, adjustment of the mA and/or kV according to patient size, and/or use of iterative reconstruction technique. FINDINGS: CT CHEST WITHOUT CONTRAST: LUNGS: No pulmonary infiltrate. Left lower lobe compressive atelectasis. Minimal right lower lobe compressive atelectasis. MEDIASTINUM: Normal size heart. Right central venous infusion port terminating in right atrium. Normal caliber thoracic aorta and pulmonary artery trunk. LYMPH NODES: Unremarkable. PLEURA: Small right and moderate left pleural effusion. BONES: Severe thoracic dextroscoliosis. No acute fracture. OTHER FINDINGS: None. CT ABDOMEN AND PELVIS: LIVER: Normal size. Two irregular low-attenuation hepatic masses unchanged from 03/01/2017. These measure 2.7 cm and 3.1 cm in respective greatest dimension. No biliary ductal dilatation. GALLBLADDER AND BILE DUCTS: Gallbladder contracted. PANCREAS: Unremarkable. No gross lesion or ductal dilatation. SPLEEN: Unremarkable. ADRENALS: Unremarkable. No mass. KIDNEYS AND URETERS: 2.0 cm rounded low-attenuation lesion lower pole right kidney. 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 . No calculus or hydronephrosis. VASCULATURE: Unremarkable. No aortic aneurysm. BOWEL: Dilated small bowel loops are noted, up to 3.5 cm. Proximal small bowel does not appear dilated. Possible early mechanical bowel obstruction. Followup advised. APPENDIX: Not identified PERITONEUM: Ascites, grossly unchanged from prior CT. Omental metastasis with omental caking. This appears somewhat progressed on the current examination compared to 03/01/2017. Multiple irregularly-shaped pelvic soft tissue masses, largest approximately 10.7 x 10.6 x 14.0 cm. Evaluation of these masses is somewhat limited in the absence of intravenous contrast administration and adequate bowel opacification. LYMPH NODES: Unremarkable. No enlarged lymph nodes. BLADDER: Poorly distended and extrinsically compressed. REPRODUCTIVE: Uterus not identified. Question of prior hysterectomy. BONES: Lumbar dextroscoliosis. No acute fracture. OTHER FINDINGS: None. IMPRESSION: Bilateral pleural effusion, left greater than right. Bilateral lower lobe compressive atelectasis, left greater than right. Severe thoracolumbar scoliotic deformity. Ascites. Omental metastasis. Dilated loops of small bowel without proximal small bowel dilatation. Possible early mechanical bowel obstruction. Irregular large pelvic soft tissue masses, grossly unchanged from 03/01/2017. Evaluation limited by the absence of intravenous contrast an adequate bowel opacification. Two irregular hepatic masses as described. Possible metastasis.
[2017-03-27] MEDS ORDERED: oxyCODONE 5 mg Immediate Release Tab PO STA (17:38)
[2017-03-27] MEDS ORDERED: oxyCODONE 5 mg Immediate Release Tab PO PRN (17:38)
--- NOTE | 2017-03-27 17:54 | RAD ---
HISTORY: hypercapnea, respiratory distress COMPARISON: 03/26/2017 FINDINGS: LUNGS: No infiltrate. Opacity at right base is due to scoliosis and oblique positioning. PLEURA: No significant pleural effusion identified, no pneumothorax apparent. CARDIOVASCULAR: Mild congestive change. Normal heart size. Right central venous infusion port. OSSEOUS STRUCTURES: Thoracic dextroscoliosis. VISUALIZED UPPER ABDOMEN: Normal. OTHER FINDINGS: None. IMPRESSION: No acute infiltrate. Mild congestive change.
--- NOTE | 2017-03-27 17:58 | PN ---
DATE: 03/27/2017 SUBJECTIVE: The patient is seen in the ICU. She is on BiPAP. She is lethargic, but arousable. She denies any abdominal pain. She appears to be in mild respiratory distress. She denies any nausea, vomiting. She has had no BM today. PHYSICAL EXAMINATION: GENERAL: Obese elderly lady lying in bed in the ICU, on BiPAP. VITAL SIGNS: Blood pressure 118/59, heart rate 81, respiratory rate 23, temperature 97.7. HEENT: Normocephalic, atraumatic. NECK: Supple, no JVD. LUNGS: Bilateral equal air entry, bilateral rhonchi, equal expansion. CARDIAC: S1, S2, regular rate and rhythm, no murmur, no rub. ABDOMEN: Distended, tense, nontender. No guarding, no rigidity, bowel sounds present. EXTREMITIES: 2+ pitting edema of the lower extremities. INTAKE AND OUTPUT: 650/600. LABORATORY DATA: WBC 11.8, hemoglobin 10.7, hematocrit 33.6, platelets 244. Sodium 143, potassium 4 .9, chloride 110, CO2 23, BUN 88, creatinine 1.7, glucose 134, calcium 8.6, AST 56, ALT 31, albumin 3 .3. ASSESSMENT AND PLAN: A 71-year-old lady with history of hypertension, hypercoagulable state, deep ve nous thrombosis, severe kyphoscoliosis, recently found to have metastatic ovarian cancer, ascites. T he patient was being prepped for chemotherapy, had a port placed, became hypotensive, went into septi c shock and transferred to the ICU. Also developed acute kidney injury, likely acute tubular necrosi s in the setting of contrast exposure on 03/01, plus the hypotension and septic shock. 1. Acute kidney injury, slowly resolving. Creatinine peaked at 2.3, now slowly coming down. Creati nine today is 1.7. 2. Non-anion gap metabolic acidosis. 3. Severe respiratory acidosis, secondary to kyphoscoliosis. 4. Hypertension, well controlled at this time. 5. Metastatic ovarian cancer, status post chemotherapy on . 6. Increased abdominal girth, causing respiratory insufficiency. PLAN: 1. No plans for renal replacement therapy. 2. Monitor urine output closely. 3. Avoid nephrotoxins. 4. Push p.o. fluids. 5. Consider gentle hydration. 6. Follow up blood cultures. Case discussed with ICU residents, case discussed with Dr. Brady, case discussed with ICU nurses. More than 35 minutes spent in the care of this critically ill patient. Susannah Velasquez MD cc: [phone] TT: 03/27/2017 17:57:36 Confirmation # [id number] Dictation # [id number]
--- NOTE | 2017-03-27 23:22 | PN ---
DATE: 03/27/2017 PULMONARY CARE CRITICAL CARE PROGRESS NOTE REFERRING PHYSICIAN: Dr. Delgado Lamas. SUBJECTIVE: She is on noninvasive ventilation, a little more awake and alert than yesterday. Follow s simple commands. Still desaturates off the noninvasive ventilation. There is no cough, no sputum production, no hemoptysis, no emesis. Distended abdomen. No leg swelling. OBJECTIVE: GENERAL: No acute distress. VITAL SIGNS: Temperature is 98, heart rate 98, respiratory rate is 22, blood pressure 110/47, pulse ox 100% on noninvasive ventilation. HEENT: Moist mucous membranes. Crowded airway. NECK: Supple, no JVD. LUNGS: She has a poor airflow. HEART: S1, S2. ABDOMEN: Distended with diffuse tenderness. EXTREMITIES: There is trace edema. NEUROLOGIC: Lethargic, Sleepy, arousable. MEDICATIONS: She is on DuoNeb q. 6 hours, Lovenox 60 mg subQ q.12 hours, Meropenem is 1 g IV q. 12 h ours, oxycodone immediate release 5 mg q. 6 hours p.r.n., Pepcid 20 mg daily, Solu-Medrol 40 mg IV q. 8 hours, Tylenol on a p.r.n. basis, Zofran on a p.r.n. basis. LABORATORY DATA: Shows hemoglobin 10.7, hematocrit 33.6, WBC 11.8, and platelet is 244. Sodium 143, potassium 4.9, chloride 110, bicarbonate 23, BUN , creatinine 1.7, glucose 134, AST 56, ALT 31, alkaline phosphatase is 49, albumin is 3.3. One of the blood culture from 03/23, had bacteroides fr agilis. Had a CT of the chest, abdomen and pelvis done with p.o. contrast, which showed bilateral pl eural effusions, left greater than the right; bilateral lower lobe compressive atelectasis, left grea ter than the right; severe thoracolumbar scoliotic deformity; ascites; omental metastases; dilated lo op of small bowel without proximal small bowel dilatation, possibly early mechanical bowel obstructio n; irregular large pelvic soft tissue masses, grossly unchanged from 03/01/2017. Evaluation limited by the absence of intravenous contrast and opacification. There are irregular hepatic masses a lso noted, possibly metastatic disease. IMPRESSION AND PLAN: Metastatic ovarian cancer, respiratory failure with pleural effusion, atelectas is, severe scoliosis, history of hypertension, DVT, . Case discussed with the nursing staff. W e will continue inhaled bronchodilators, IV steroids. May start Dulcolax suppository on a daily basi s. We will get ABG, chest x-ray, CBC, CMP in the morning. Critical care time spent more than 35 minutes. Danial Dumont MD cc: [id number] TT: 03/27/2017 23:21:40 Confirmation # [id number] Dictation # [id number] mn
[2017-03-28] MEDS: Enoxaparin 60 mg Syringe SC SCH (00:07)
[2017-03-28] MEDS: Albuterol-Ipratrop 3 mg / 0.5 (3 ml) UD IH SCH ×4 (01:52→20:06)
[2017-03-28] MEDS: MethylPREDNISolone 40 mg Vial IV SCH ×2 (05:20→13:34)
[2017-03-28 06:01] LABS: ARTERIAL BLOOD GAS HCO3 19.2 mmol/L (21-28); ARTERIAL BLOOD GAS O2 CAPACITY 10.1 mL/dl (16-24); ARTERIAL BLOOD GAS O2 CONTENT 10.1 ML/dl (15-23); ARTERIAL BLOOD GAS PH 7.29 (7.35-7.45); ARTERIAL BLOOD HGB O2 SAT 97.5 % (95.0-98.0); CARBOXYHEMOGLOBIN 1.4 % (0.5-1.5); HHB 0.1 % (0-5); METHEMOGLOBIN 0.9 % (0.0-3.0)
[2017-03-28 06:03] LABS: ADD MANUAL DIFF? NO
[2017-03-28 06:32] LABS: GRAN # 10.05 (1.4-6.5); GRAN % 97.7 % (50.0-68.0); LYMPH # 0.1 (1.2-3.4); LYMPH % 0.9 % (22.0-35.0); MEAN CORPUSCULAR HEMOGLOBIN 28.8 pg (25.0-35.0); MEAN PLATELET VOLUME 11.1 fl (7.0-11.0); MONO # 0.1 (0.1-0.6); MONO % 1.4 % (1.0-6.0); PLATELET COUNT 197 10^3/uL (120.0-450.0); WHITE BLOOD COUNT 10.3 10^3/ul (4.5-11.0)
[2017-03-28 06:33] LABS: ALB/GLOB RATIO 1.3 (1.1-1.8); BILIRUBIN,TOTAL 0.4 mg/dL (0.2-1.3); CALCIUM 8.4 mg/dL (8.4-10.5); POTASSIUM 5.5 mmol/L (3.6-5.0); TOTAL PROTEIN 5.5 g/dL (5.8-8.3)
[2017-03-28 06:41] LABS: HEMATOCRIT 22.5 % (36.0-48.0)
[2017-03-28] MEDS ORDERED: Sodium Chloride 0.9% 500 ML IV STA (07:08)
[2017-03-28 07:13] LABS: ADD MANUAL DIFF? NO
[2017-03-28 07:17] LABS: GRAN # 10.08 (1.4-6.5); GRAN % 97.2 % (50.0-68.0); LYMPH # 0.2 (1.2-3.4); LYMPH % 1.4 % (22.0-35.0); MEAN CELL VOLUME 90.5 fL (80.0-105.0); MEAN CORPUSCULAR HEMOGLOBIN 28.8 pg (25.0-35.0); MEAN CORPUSCULAR HGB CONC 31.8 g/dl (31.0-37.0); MEAN PLATELET VOLUME 10.3 fl (7.0-11.0); MONO # 0.1 (0.1-0.6); MONO % 1.4 % (1.0-6.0); PLATELET COUNT 175 10^3/uL (120.0-450.0); WHITE BLOOD COUNT 10.4 10^3/ul (4.5-11.0)
[2017-03-28 09:15] LABS: ADD MANUAL DIFF? NO
[2017-03-28 09:17] LABS: GRAN # 9.84 (1.4-6.5); GRAN % 97.9 % (50.0-68.0); LYMPH # 0.1 (1.2-3.4); LYMPH % 0.9 % (22.0-35.0); MEAN CELL VOLUME 91.2 fL (80.0-105.0); MEAN CORPUSCULAR HEMOGLOBIN 29.6 pg (25.0-35.0); MEAN CORPUSCULAR HGB CONC 32.5 g/dl (31.0-37.0); MEAN PLATELET VOLUME 10.8 fl (7.0-11.0); MONO # 0.1 (0.1-0.6); MONO % 1.2 % (1.0-6.0); PLATELET COUNT 172 10^3/uL (120.0-450.0); WHITE BLOOD COUNT 10.1 10^3/ul (4.5-11.0)
[2017-03-28] MEDS: Meropenem 1g/NS 100mL IVPB 1 GM/100 ML PIGGYBACK IVPB SCH ×2 (09:22→21:38)
[2017-03-28] MEDS: Famotidine 20mg/50ml 20 MG/50 ML BAG IVPB SCH (09:23)
[2017-03-28 09:27] LABS: HEMATOCRIT 20.6 % (36.0-48.0)
--- NOTE | 2017-03-28 10:37 | CT ---
PROCEDURE: CT Abdomen and Pelvis without intravenous contrast HISTORY: Bleeding, ovarian CA, ascites COMPARISON: 03/27/2017 TECHNIQUE: Without contrast.. Contrast Dose: 0 Radiation dose: Total exam DLP = 861.62 mGy-cm. This CT exam was performed using one or more of the following dose reduction techniques: Automated exposure control, adjustment of the mA and/or kV according to patient size, and/or use of iterative reconstruction technique. FINDINGS: LOWER THORAX: Bilateral pleural effusion, small right and moderate on left. Mild bilateral lower lobe compressive atelectasis. LIVER: Normal size. Two irregular low-density masses as on previous examination. No biliary dilatation. GALLBLADDER AND BILE DUCTS: Gallbladder contracted. PANCREAS: Unremarkable. No gross lesion or ductal dilatation. SPLEEN: Unremarkable. ADRENALS: Unremarkable. No mass. KIDNEYS AND URETERS: 2.0 cm rounded low-attenuation lesion lower pole right kidney, likely cysts. Tiny angiomyolipoma mid right kidney. No renal calculus or hydronephrosis. VASCULATURE: Unremarkable. No aortic aneurysm. BOWEL: No bowel obstruction. Mild rectal prolapse. APPENDIX: Not identified. PERITONEUM: Moderate ascites. Evidence of omental metastasis. Multiple irregularly-shaped pelvic/lower abdominal soft tissue masses, largest approximately 15.4 cm. Unchanged from prior examination. LYMPH NODES: Unremarkable. No enlarged lymph nodes. BLADDER: Poorly distended. REPRODUCTIVE: Uterus not identified. Question of prior hysterectomy. BONES: Severe lumbar levoscoliosis. No fracture. OTHER FINDINGS: None. IMPRESSION: Ascites. Multiple pelvic/lower abdominal soft tissue masses. Two hepatic masses, possibly metastatic. Probable omental metastasis. Bilateral pleural effusion.
--- NOTE | 2017-03-28 11:01 | CP.PCM.CON ---
History of Present Illness - History of Present Illness History of Present Illness: General Surgery consult note for Dr. Murray Consult reason: possible intra-abdominal hemorrhage Pt is a 71F with PMH of HTN, DVT's, and ovarian cancer stage IIIB since 2012 with mets to the omentum and possibly liver, deemed unoperable by surgeons at a non[facility] facility. She had an abdominal paracentesis done on 03/22 d/t worsened abdominal distension which drained 800cc of serosanguinous fluid. After the procedure patient became hypotensive and was admitted to the ICU. She has been hemodynamically stabilized and undergoing chemotherapy. Last night patient complained of worsened abdominal pain and this AM her hgb dropped from 10.7 do 6.7. Patient is now mildly tachycardic with HR 100-110, BP is 91/61 but stable compared to her hospital stay BP. Patient just had pain medication and is lethargic, so it is difficult to get an ROS from her but she denied any abdominal pain at this time, but patient is very pale with scleral pallor. Patient has been on lovenox 60mg BID for DVT prevention with last dose at midnight overnight. CT of abdomen and pelvis with PO contrast revealed persistent ascites, and 2 irregular, low attenuating liver masses all unchanged from 03/01/17. Also showed ovarian and omental mets with some progression from 03/01/17. New finding of dilated small bowel 3.5cm at greatest diameter CT of abdomen and pelvis today shows small increase in intra-abdominal fluid, but no significant change from yesterday's CT Review of Systems - Review of Systems Systems not reviewed;Unavailable: Altered Mental Status Past Patient History - Tetanus Immunizations Tetanus Immunization: Unknown - Past Social History Smoking Status: Former Smoker - CARDIAC Hx Cardiac Disorders: Yes Hx Circulatory Problems: Yes (dvt in both legs) Hx Hypertension: Yes - PULMONARY Hx Respiratory Disorders: Yes Hx Pneumonia: Yes - NEUROLOGICAL Hx Neurological Disorder: No - HEENT Hx HEENT Problems: No - RENAL Hx Chronic Kidney Disease: No - ENDOCRINE/METABOLIC Hx Endocrine Disorders: No - HEMATOLOGICAL/ONCOLOGICAL Hx Blood Disorders: Yes Hx Cancer: Yes (ovarian ca) - INTEGUMENTARY Hx Dermatological Problems: No - MUSCULOSKELETAL/RHEUMATOLOGICAL Hx Falls: No - GASTROINTESTINAL Hx Gastrointestinal Disorders: No - GENITOURINARY/GYNECOLOGICAL Hx 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") - PSYCHIATRIC Hx Psychophysiologic Disorder: No - SURGICAL HISTORY Hx Surgeries: Yes (hernia repair, left breast cyst removal) - ANESTHESIA Hx Anesthesia Reactions: No Hx Malignant Hyperthermia: No Meds Allergies/Adverse Reactions: Allergies Allergy/AdvReac Type Severity Reaction Status Date / Time No Known Allergies Allergy Verified 04/15/13 20:21 - Medications Medications: Current Medications Acetaminophen (Tylenol 325mg Tab) 650 mg PO Q4H PRN PRN Reason: Pain, Mild (1-3) Albuterol/Ipratropium (Duoneb 3 Mg/0.5 Mg (3 Ml) Ud) 3 ml IH [id number] [facility] Last Admin: 03/28/17 08:59 Dose: 3 ml Bisacodyl (Dulcolax) 10 mg RC DAILY [facility] Last Admin: 03/28/17 09:30 Dose: 10 mg Enoxaparin Sodium (Lovenox) 60 mg SC Q12H [facility] PRN Reason: Protocol Last Admin: 03/28/17 00:07 Dose: 60 mg Meropenem 1g/NS 100mL IVPB (Meropenem 1g/Ns 100ml Ivpb) 1 gm in 100 mls @ 100 mls/hr IVPB Q12 [facility] PRN Reason: Protocol Stop: 03/30/17 13:16 Last Admin: 03/28/17 09:22 Dose: 100 mls/hr Famotidine (Pepcid 20mg/50ml Premix) 20 mg in 50 mls @ 100 mls/hr IVPB DAILY [facility] Last Admin: 03/28/17 09:23 Dose: 100 mls/hr Methylprednisolone (Solu-Medrol) 40 mg IV Q8H [facility] Last Admin: 03/28/17 05:20 Dose: 40 mg Ondansetron HCl (Zofran Inj) 4 mg IVP Q6H PRN PRN Reason: Nausea/Vomiting Oxycodone HCl (Oxycodone Immediate Release Tab) 5 mg PO Q6H PRN PRN Reason: Pain, severe (8-10) Last Admin: 03/28/17 09:24 Dose: 5 mg Physical Exam - Constitutional Appears: No Acute Distress, In Acute Distress - Head Exam Head Exam: ATRAUMATIC, NORMOCEPHALIC - Eye Exam Eye Exam: EOMI. absent: Conjunctival injection Additional comments: scleral pallor - ENT Exam ENT Exam: Mucous Membranes Moist, Normal Oropharynx - Neck Exam Neck exam: Positive for: Normal Inspection - Respiratory Exam Respiratory Exam: NORMAL BREATHING PATTERN. absent: Accessory Muscle Use, Respiratory Distress - GI/Abdominal Exam GI & Abdominal Exam: Distended (severely distended and tympanic abdomin), Mass, Soft. absent: Guarding, Hernia, Pulsatile Mass Additional comments: No active bleed/drainage from former paracentsis site - Extremities Exam Extremities exam: Positive for: pedal edema (1+ pitting edema extending to midcalf). Negative for: calf tenderness, tenderness - Neurological Exam Neurological exam: Altered - Psychiatric Exam Additional comments: unable to assess d/t AMS Results - Vital Signs Recent Vital Signs: Last Vital Signs Temp 97.7 F 03/28/17 04:00 Pulse 92 H 03/28/17 09:00 Resp 23 03/28/17 06:00 BP 114/83 03/28/17 06:00 Pulse Ox 100 03/28/17 05:00 - Labs Result Diagrams: 03/28/17 09:10 03/28/17 05:25 Labs: Laboratory Results - last 24 hr 03/28/17 03/28/17 03/28/17 05:25 05:25 05:30 WBC 10.3 RBC 2.50 L Hgb 7.2 L D Hct 22.5 L MCV 90.0 MCH 28.8 MCHC 32.0 RDW 15.0 H Plt Count 197 MPV 11.1 H Gran % 97.7 H Lymph % (Auto) 0.9 L Young % (Auto) 1.4 Eos % (Auto) 0.0 L Baso % (Auto) 0.0 Gran # 10.05 H Lymph # 0.1 L Young # 0.1 Eos # 0.0 Baso # 0.00 pCO2 40 pO2 188.0 H HCO3 19.2 L ABG pH 7.29 L ABG Total CO2 20.4 L ABG O2 Saturation 99.9 H ABG O2 Content 10.1 L ABG Base Excess -6.8 L ABG Hemoglobin 7.0 L ABG Carboxyhemoglobin 1.4 POC ABG HHb (Measured) 0.1 ABG Methemoglobin 0.9 ABG O2 Capacity 10.1 L Hgb O2 Saturation 97.5 FiO2 35.0 Sodium 143 Potassium 5.5 H Chloride 110 H Carbon Dioxide 21 Anion Gap 18 BUN 96 H Creatinine 2.1 H Est GFR ( Amer) 28 Est GFR (Non-Af Amer) 23 Random Glucose 225 H Calcium 8.4 Total Bilirubin 0.4 AST 46 H ALT 33 Alkaline Phosphatase 45 Total Protein 5.5 L Albumin 3.1 Globulin 2.4 Albumin/Globulin Ratio 1.3 Blood Type Antibody Screen Crossmatch BBK History Checked 03/28/17 03/28/17 03/28/17 07:00 09:10 09:10 WBC 10.4 10.1 RBC 2.43 L 2.26 L Hgb 7.0 L 6.7 L* Hct 22.0 L 20.6 L* MCV 90.5 91.2 MCH 28.8 29.6 MCHC 31.8 32.5 RDW 15.0 H 15.0 H Plt Count 175 172 MPV 10.3 10.8 Gran % 97.2 H 97.9 H Lymph % (Auto) 1.4 L 0.9 L Young % (Auto) 1.4 1.2 Eos % (Auto) 0.0 L 0.0 L Baso % (Auto) 0.0 0.0 Gran # 10.08 H 9.84 H Lymph # 0.2 L 0.1 L Young # 0.1 0.1 Eos # 0.0 0.0 Baso # 0.00 0.00 pCO2 pO2 HCO3 ABG pH ABG Total CO2 ABG O2 Saturation ABG O2 Content ABG Base Excess ABG Hemoglobin ABG Carboxyhemoglobin POC ABG HHb (Measured) ABG Methemoglobin ABG O2 Capacity Hgb O2 Saturation FiO2 Sodium Potassium Chloride Carbon Dioxide Anion Gap BUN Creatinine Est GFR ( Amer) Est GFR (Non-Af Amer) Random Glucose Calcium Total Bilirubin AST ALT Alkaline Phosphatase Total Protein Albumin Globulin Albumin/Globulin Ratio Blood Type A POSITIVE Antibody Screen Negative Crossmatch See Detail BBK History Checked No verified bt Assessment & Plan - Assessment and Plan (Free Text) Assessment: 71F with PMH of HTN, DVT's, and inoperable ovarian cancer with mets who is in the ICU with poor respiratory status and likely a mild abdominal compartment syndrome d/t intra-abdominal neoplasm who now has a drop in hemoglobin and clinical picture suspicious for acute blood loss 03/27: CT of abdomen and pelvis with PO contrast revealed persistent ascites, and 2 irregular, low attenuating liver masses all unchanged from 03/01/17. Also showed ovarian and omental mets with some progression from 03/01/17. New finding of dilated small bowel 3.5cm at greatest diameter 03/28: CT of abdomen and pelvis today shows small increase in intra-abdominal fluid, but no significant change from yesterday's CT Patient is a poor surgical candidate given poor overall prognosis considering the extent of ovarian cancer and poor renal/respiratory status and persistent hypotension. Surgical intervention would not be of benefit but would rather likely exacerbate patient's hemodynamic instability at this point. Plan: No surgical intervention Administer 2units of PRBC's, increase IVF resuscitation, continue analgesia to make patient comfortable and promote hemodynamic stability as possible Consider stool softeners given patient's small bowel dilation Patient seen and discussed with Dr. Trevor Morel, PGY1
--- NOTE | 2017-03-28 11:39 | PN ---
DATE: 03/28/2017 SUBJECTIVE: The patient is awake and alert, continuing to require BiPAP for respiratory support. Bi PAP setting is 20/6. There is oxygen support with the BiPAP. The patient has controlled abdominal p ain, but no nauseousness or vomiting, no diarrhea and no chest pain, no cough or congestion this morn ing. It is noted that she has a hemoglobin that has dropped from approximately 10 to in the range of 7 and repeat is pending with no obvious bleeding sites. Dr. Kaur has been notified and discussio n as to this being secondary to the metastatic ovarian carcinoma was undertaken. The patient will go down for a CT scan of the abdomen and we will call a surgical consult for their opinion. The patien t has been typed and cross matched and will get packed red blood cells and hemoglobin will be followe d closely. PHYSICAL EXAMINATION: VITAL SIGNS: Her temperature is 97.7, her pulse is 92, respirations are 23, and BP is 114/83, O2 sat with BiPAP is 100%. HEAD: Atraumatic, normocephalic. EYES: Reactive to light. EARS, NOSE AND THROAT: Seemed to be within normal limits. NECK: Supple, no JVD, no thyroid enlargement, no lymph nodes. HEART: Has a regular rate and rhythm. Normal S1, S2. LUNGS: Reveal mild decreased breath sounds at the bases. ABDOMEN: Distended, tender to deep palpation, decreased bowel sounds. GENITALIA AND RECTAL: Deferred. MUSCULOSKELETAL: No joint deformities. EXTREMITIES: Reveal trace lower extremity edema. NEUROLOGIC: She seemed to be grossly intact. As far as her CT of the abdomen, pelvis and chest, it reveals bilateral pleural effusions, left great er than right, bilateral lower lobe compressive atelectasis, left greater than right. Severe thoraco lumbar scoliotic deformity. There is ascites, omental metastasis and dilated loops of small bowel. A possible early mechanical bowel obstruction. There is an irregular large pelvic mass. Possible me tastasis to the liver because the liver has liver masses. LABORATORIES: Her WBC count is 10.1, her latest hemoglobin is 6.7, hematocrit 20.6 and her platelet count is 172. Arterial blood gas reveals a pH of 7.29, pCO2 of 40, pO2 of 188 and her sodium is 143, potassium 5.5, chloride 110, CO2 of 21 with a BUN of 96, creatinine of 2.1 and a glucose of 225. IMPRESSION: This patient has diffuse metastatic ovarian carcinoma with respiratory failure requiring BiPAP for hypercapnia and respiratory acidosis. The patient has severe anemia, acute in nature, ble eding site unknown at this time. She has severe kyphoscoliosis with ascites and abdominal and pelvic mass. The patient also is noted to have Gram-negative bacteremia as well as renal insufficiency. PLAN: She is going down for a CT scan of the abdomen stat. She has been typed and crossmatched for packed red blood cells. Heme/onc has been called for their opinion and surgical consult has been nolan led. The patient will continue with BiPAP and O2 support and we will follow her chest x-ray and andrew rial blood gas closely. She will continue with DuoNeb as a bronchodilator and we will continue with the antibiotics of meropenem and continue with Solu-Medrol. We will continue to treat aggressively a long with the other consultants and the primary care doctor. Shayne Brady MD cc: [id number] TT: 03/28/2017 11:38:51 Confirmation # [id number] Dictation # [id number] en
[2017-03-28 12:08] LABS: INR 7.44 (0.93-1.08)
--- NOTE | 2017-03-28 12:24 | RAD ---
HISTORY: hypercapnea, respiratory distress COMPARISON: No prior. FINDINGS: LUNGS: No active pulmonary disease. PLEURA: No significant pleural effusion identified, no pneumothorax apparent. CARDIOVASCULAR: Right central venous infusion port. Normal heart size. No congestive change. OSSEOUS STRUCTURES: Thoracic dextroscoliosis. VISUALIZED UPPER ABDOMEN: Normal. OTHER FINDINGS: None. IMPRESSION: No active disease.
--- NOTE | 2017-03-28 14:11 | CP.PCM.PN ---
Subjective - Date & Time of Evaluation Date of Evaluation: 03/28/17 Time of Evaluation: 10:50 - Subjective Subjective: Feels weak and ill, no fevers overnight. Objective - Vital Signs/Intake and Output Vital Signs (last 24 hours): Temp Pulse Resp BP Pulse Ox 97.5 F L 97 H 12 130/80 100 03/28/17 13:11 03/28/17 13:11 03/28/17 13:11 03/28/17 13:11 03/28/17 05:00 Intake and Output: 03/28/17 03/28/17 06:59 18:59 Intake Total 100 0 Balance 100 0 - Medications Medications: Current Medications Acetaminophen (Tylenol 325mg Tab) 650 mg PO Q4H PRN PRN Reason: Pain, Mild (1-3) Albuterol/Ipratropium (Duoneb 3 Mg/0.5 Mg (3 Ml) Ud) 3 ml IH [id number] [facility] Last Admin: 03/28/17 13:51 Dose: 3 ml Bisacodyl (Dulcolax) 10 mg RC DAILY [facility] Last Admin: 03/28/17 09:30 Dose: 10 mg Enoxaparin Sodium (Lovenox) 60 mg SC Q12H [facility] PRN Reason: Protocol Last Admin: 03/28/17 00:07 Dose: 60 mg Meropenem 1g/NS 100mL IVPB (Meropenem 1g/Ns 100ml Ivpb) 1 gm in 100 mls @ 100 mls/hr IVPB Q12 [facility] PRN Reason: Protocol Stop: 03/30/17 13:16 Last Admin: 03/28/17 09:22 Dose: 100 mls/hr Famotidine (Pepcid 20mg/50ml Premix) 20 mg in 50 mls @ 100 mls/hr IVPB DAILY [facility] Last Admin: 03/28/17 09:23 Dose: 100 mls/hr Methylprednisolone (Solu-Medrol) 40 mg IV Q8H [facility] Last Admin: 03/28/17 13:34 Dose: 40 mg Ondansetron HCl (Zofran Inj) 4 mg IVP Q6H PRN PRN Reason: Nausea/Vomiting Oxycodone HCl (Oxycodone Immediate Release Tab) 5 mg PO Q6H PRN PRN Reason: Pain, severe (8-10) Last Admin: 03/28/17 09:24 Dose: 5 mg - Labs Labs: 03/28/17 09:10 03/28/17 05:25 PT 80.3 Seconds (9.9-11.8) H* 03/28/17 10:50 INR 7.44 (0.93-1.08) H* 03/28/17 10:50 APTT 71.0 Seconds (23.7-30.8) H* 03/28/17 10:50 - Constitutional Appears: Chronically Ill - Head Exam Head Exam: NORMAL INSPECTION - Neck Exam Neck Exam: absent: Lymphadenopathy, Meningismus - Respiratory Exam Respiratory Exam: Decreased Breath Sounds Additional comments: right anterior chest wall port site clean and intact - Cardiovascular Exam Cardiovascular Exam: +S1, +S2 - GI/Abdominal Exam GI & Abdominal Exam: Distended, Soft. absent: Guarding, Rigid, Tenderness, Organomegaly Assessment and Plan - Assessment and Plan (Free Text) Plan: Assessment Severe sepsis with acute renal failure due to Bacteroides bacteremia in a patient with advanced stage ovarian cancer with ascites, GI or source, unlikely port as source since it was only placed a day prior to the bacteremia history of pneumonia history of tracheostomy S/P bilateral herniorraphy HTN history of bilateral DVT Plan continue Merrem (day 4); repeat blood cx so far negative Discussed with Dr. Kaur previously that we can continue chemotherapy since she is on antibiotics Will continue to follow clinically
[2017-03-28 14:24] LABS: FIBRINOGEN 240.6 mg/dL (187-400)
[2017-03-28 14:26] LABS: D DIMER 9.84 mg/L FEU (0-0.50)
[2017-03-28] MEDS ORDERED: Phytonadione 10 MG in Sodium Chloride 0.9% 50 ML IV ONE (14:51)
[2017-03-28] MEDS ORDERED: Phytonadione 5 MG in Sodium Chloride 0.9% 50 ML IV ONE (15:40)
--- NOTE | 2017-03-28 15:51 | PN ---
DATE: 03/28/2017 REFERRING PHYSICIAN: Dr. Delgado Lamas SUBJECTIVE: She is on nasal cannula, feels better. Lost 2 grams of hemoglobin since yesterday and t nicholas. Not much cough. No chest pain. Still has abdominal pain, trace leg swelling. OBJECTIVE: GENERAL: Mild to moderate distress. VITAL SIGNS: Temp is 98, heart rate is 102, respiratory rate is 20, blood pressure 120/59. HEENT: Moist mucous membranes. Crowded airway. Mallampati score is 4. NECK: Supple. No JVD. LUNGS: Have a few crackles. HEART: S1 and S2, tachycardic. ABDOMEN: Distended, diffuse tenderness. EXTREMITIES: Not much edema. NEUROLOGIC: Sleepy, arousable, follows simple command. MEDICATIONS: Reviewed. She is on Dulcolax 10 mg rectally daily, albuterol-Atrovent nebulizer q. 6 h ours, Lovenox 60 mg q. 12 hours, Meropenem 1 g q. 12 hours, oxycodone 5 mg q. 6 hours p.r.n., Pepcid 20 mg daily, Solu-Medrol 40 mg q. 8 hours, Tylenol p.r.n., Zofran p.r.n. basis. LABORATORY DATA: Shows hemoglobin 6.7, hematocrit 20.6, WBC 10.1, platelet is 172. Her INR today is 7.4. D-dimer is 9.8. Blood gases today shows pH 7.29, pCO2 40, O2 188. This is on nasal cannula. Sodium 143, potassium 5.5, chloride 110, bicarbonate 21, BUN 96, creatinine 2.1, glucose 225, calciu m 8.4, AST 46, ALT 33, alk phos is 45, albumin 3.1. IMPRESSION AND PLAN: Metastatic ovarian cancer with seems like a peritonitis, atelectasis, severe sc oliosis, history of hypertension, deep venous thrombosis, severe anemia. Case discussed with nursing staff. Also spoke to patient's sister at bedside. Being transfused. We will discontinue Solu-Medr ol. Continue inhaled bronchodilator. May use noninvasive ventilation if any respiratory distress. Follow up labs in the morning. Critical care time was more than 35 minutes. Thank you and we will follow with you. Danial Dumont MD cc: [id number] TT: 03/28/2017 15:51:32 Confirmation # [id number] Dictation # [id number] en
--- NOTE | 2017-03-28 17:00 | CON ---
DATE: 03/28/2017 REASON FOR CONSULTATION: Anemia, drop in blood count, rule out GI source of blood loss. 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 Found to have increased distention of the abdomen and also increasing lower extremity edema. The patient underwent paracentesis. The patient underwent ultrasound-guided paracentesis, about only 800 mL of fluid was removed. The patient was transferred to ICU because of the hypotensive episode. The patient had a central venous catheter placed for chemotherapy. The patient's hemoglobin yesterday was 10.7, it dropped to 7.2, repeat one again was 7.0 and again 6.7. No obvious melena or bright red blood per rectum. No vomiting blood. The patient was started on Lovenox 60 mg b.i.d. for DVT prophylaxis because in view of the history of recurrent DVTs. The patient's INR was 2.43 yesterday on 03/26. Today's INR was over 7.4. OTHER PAST MEDICAL HISTORY: significant as above. History of hypertension, pneumonia. SOCIAL HISTORY: Ex-smoker. Denies alcohol use. ALLERGIES: No known drug allergy. FAMILY HISTORY: Noncontributory. REVIEW OF SYSTEMS: Limited. Positive as above. Other systems reviewed. The patient is more arousable. No vomiting. No melena. Distended abdomen, some discomfort. PHYSICAL EXAMINATION: GENERAL: The patient lying on the bed, not in acute distress. VITAL SIGNS: Temperature is 97.1, pulse 103, blood pressure 101/51, respirations 21. HEENT: Atraumatic, anicteric. NECK: Supple. HEART: S1, S2 heard. LUNGS: Bilateral air entry present, slightly reduced in the base. ABDOMEN: Very distended. EXTREMITIES: Trace edema present. NEUROLOGIC: Lethargic, sleepy. LABORATORY DATA: Hemoglobin 6.7, hematocrit 20.6, WBC is 10.1, platelets 172. Chemistries: Potassium 5.5, BUN 96, creatinine 2.1. IMPRESSION: This 71-year-old patient initially admitted with abdominal distention, ascites. Status post paracentesis, revealed only 800 mL. The patient had a hypotensive episode in the ICU. INR was elevated to 7.4 now. The patient was on Lovenox 60 mg q.12 hourly, was discontinued and CT scan done was reviewed very carefully, just shows large ascites, appeared to be like a blood in the peritoneal cavity. It could be a hemoperitoneum. retroperitoneal space appears relatively clear, relatively not involved much. The patient has bilateral pleural effusion, atelectasis, hepatic lesions noticed and carcinomatosis, possible omental metastasis. Would recommend at this point: 1. Close followup of the hemoglobin and hematocrit. 2. Correction of the coagulopathy with vitamin K and also FFP. 3. Oncological followup. The mild small bowel loops appeared to be more of an ileus ____. There are a few loops of the small bowel distended, very ____. Would not contemplate any NG tube at the present time in view of this coagulopathy and high risk of bleeding. Thank you very much for allowing us to participate in the care of the patient. Renetta Mcclure MD cc: [id number] TT: 03/28/2017 17:00:33 Confirmation # [id number] Dictation # [id number] sn MTDD
[2017-03-28 18:40] LABS: HEMATOCRIT 30.1 % (36.0-48.0); MEAN CELL VOLUME 89.6 fL (80.0-105.0); MEAN CORPUSCULAR HEMOGLOBIN 29.5 pg (25.0-35.0); MEAN CORPUSCULAR HGB CONC 32.9 g/dl (31.0-37.0); MEAN PLATELET VOLUME 11.4 fl (7.0-11.0); PLATELET COUNT 129 10^3/uL (120.0-450.0); RED CELL DISTRIBUTION WIDTH 14.2 % (11.5-14.5); WHITE BLOOD COUNT 14.1 10^3/ul (4.5-11.0)
[2017-03-28 18:52] LABS: PARTIAL THROMBOPLASTIN TIME 51.4 Seconds (23.7-30.8)
[2017-03-28 19:04] LABS: ADD MANUAL DIFF? YES
[2017-03-28 19:08] LABS: INR 3.74 (0.93-1.08)
[2017-03-28 19:29] LABS: BAND 1 % (0-2); NEUTROPHIL 98 % (50.0-70.0); POIKILOCYTOSIS SLIGHT
[2017-03-28 19:47] LABS: ALB/GLOB RATIO 1.3 (1.1-1.8); BILIRUBIN,TOTAL 0.7 mg/dL (0.2-1.3); CALCIUM 8.1 mg/dL (8.4-10.5); TOTAL PROTEIN 5.4 g/dL (5.8-8.3)
[2017-03-28 19:56] LABS: POTASSIUM 5.9 mmol/L (3.6-5.0)
[2017-03-28 20:34] LABS: PH,URINE 5.5 (4.7-8.0); URINE BILIRUBIN NEGATIVE (NEGATIVE); URINE BLOOD NEGATIVE (NEGATIVE); URINE GLUCOSE (UA) NEGATIVE (NEGATIVE); URINE KETONE TRACE mg/dL (NEGATIVE); URINE LEUKOCYTE ESTERASE NEGATIVE Leu/uL (NEGATIVE); URINE PROTEIN TRACE mg/dL (<30 mg/dL); URINE UROBILINOGEN 0.2 E.U./dL (<1 E.U./dL)
[2017-03-28 20:36] LABS: URINE APPEARANCE CLEAR (CLEAR); URINE COLOR YELLOW (YELLOW)
[2017-03-28 20:46] LABS: URINE EPITHELIAL CELLS 0 - 2 /hpf (0-5); URINE RBC 0 - 2 /hpf (0-2); URINE WBC 0 - 2 /hpf (0-6)
[2017-03-28] MEDS ORDERED: Sod Polystyrene Sulf 15 gm/60 ml Oral Susp PR ONE (21:15)
[2017-03-28 23:52] LABS: ALB/GLOB RATIO 1.1 (1.1-1.8); BILIRUBIN,TOTAL 0.4 mg/dL (0.2-1.3); CALCIUM 8.5 mg/dL (8.4-10.5); POTASSIUM 5.1 mmol/L (3.6-5.0); TOTAL PROTEIN 6.2 g/dL (5.8-8.3)
[2017-03-29] MEDS: Albuterol-Ipratrop 3 mg / 0.5 (3 ml) UD IH SCH ×4 (01:19→20:42)
[2017-03-29 06:16] LABS: ADD MANUAL DIFF? NO
[2017-03-29 06:27] LABS: GRAN # 15.09 (1.4-6.5); GRAN % 98.9 % (50.0-68.0); LYMPH # 0.1 (1.2-3.4); LYMPH % 0.7 % (22.0-35.0); MEAN CELL VOLUME 87.6 fL (80.0-105.0); MEAN CORPUSCULAR HEMOGLOBIN 30.2 pg (25.0-35.0); MEAN CORPUSCULAR HGB CONC 34.4 g/dl (31.0-37.0); MEAN PLATELET VOLUME 11.4 fl (7.0-11.0); MONO # 0.1 (0.1-0.6); MONO % 0.4 % (1.0-6.0); PLATELET COUNT 84 10^3/uL (120.0-450.0); RED CELL DISTRIBUTION WIDTH 14.8 % (11.5-14.5); WHITE BLOOD COUNT 15.3 10^3/ul (4.5-11.0)
[2017-03-29 06:39] LABS: HEMATOCRIT 21.2 % (36.0-48.0)
[2017-03-29 06:40] LABS: INR 1.08 (0.93-1.08)
[2017-03-29 06:56] LABS: ALB/GLOB RATIO 1.4 (1.1-1.8); BILIRUBIN,TOTAL 0.7 mg/dL (0.2-1.3); CALCIUM 8.2 mg/dL (8.4-10.5); TOTAL PROTEIN 6.5 g/dL (5.8-8.3)
--- NOTE | 2017-03-29 07:09 | RAD ---
HISTORY: hypercapnea, respiratory distress COMPARISON: Comparison made with chest radiograph and CT chest abdomen pelvis dated 03/28/2017 (the latter of which image both lung bases FINDINGS: LUNGS: Bilateral effusions right greater than left there may also be mild bibasilar atelectasis. Increased pulmonary vascularity suggesting underlying pulmonary edema/CHF PLEURA: As abobe no pneumothorax apparent. CARDIOVASCULAR: Normal. OSSEOUS STRUCTURES: No significant abnormalities. VISUALIZED UPPER ABDOMEN: Normal. OTHER FINDINGS: None. IMPRESSION: Bilateral effusions right greater than left there may also be mild bibasilar atelectasis. Increased pulmonary vascularity suggesting underlying pulmonary edema/CHF
--- NOTE | 2017-03-29 07:53 | CP.PCM.PN ---
Subjective - Date & Time of Evaluation Date of Evaluation: 03/29/17 Time of Evaluation: 07:15 - Subjective Subjective: General Surgery Dr. Murray Pt S&E @bedside. received FFP x 5units overnight w/ no adverse reactions. pt non -responsive to verbal stimuli, grimaces to pain. Objective - Vital Signs/Intake and Output Vital Signs (last 24 hours): Temp Pulse Resp BP Pulse Ox 97.4 F L 104 H 29 H 100/66 96 03/29/17 04:00 03/29/17 06:00 03/29/17 06:00 03/29/17 06:00 03/29/17 06:00 Intake and Output: 03/29/17 03/29/17 06:59 18:59 Intake Total 1420 Output Total 20 Balance 1400 - Medications Medications: Current Medications Acetaminophen (Tylenol 325mg Tab) 650 mg PO Q4H PRN PRN Reason: Pain, Mild (1-3) Albuterol/Ipratropium (Duoneb 3 Mg/0.5 Mg (3 Ml) Ud) 3 ml IH [id number] [facility] Last Admin: 03/29/17 07:17 Dose: 3 ml Bisacodyl (Dulcolax) 10 mg RC DAILY [facility] Last Admin: 03/28/17 09:30 Dose: 10 mg Enoxaparin Sodium (Lovenox) 60 mg SC Q12H [facility] PRN Reason: Protocol Last Admin: 03/28/17 00:07 Dose: 60 mg Meropenem 1g/NS 100mL IVPB (Meropenem 1g/Ns 100ml Ivpb) 1 gm in 100 mls @ 100 mls/hr IVPB Q12 [facility] PRN Reason: Protocol Stop: 03/30/17 13:16 Last Admin: 03/28/17 21:38 Dose: 100 mls/hr Famotidine (Pepcid 20mg/50ml Premix) 20 mg in 50 mls @ 100 mls/hr IVPB DAILY [facility] Last Admin: 03/28/17 09:23 Dose: 100 mls/hr Ondansetron HCl (Zofran Inj) 4 mg IVP Q6H PRN PRN Reason: Nausea/Vomiting Oxycodone HCl (Oxycodone Immediate Release Tab) 5 mg PO Q6H PRN PRN Reason: Pain, severe (8-10) Last Admin: 03/28/17 09:24 Dose: 5 mg - Labs Labs: 03/29/17 06:00 03/28/17 18:00 PT 11.7 Seconds (9.9-11.8) 03/29/17 06:00 INR 1.08 (0.93-1.08) 03/29/17 06:00 APTT 26.0 Seconds (23.7-30.8) 03/29/17 06:00 - Constitutional Appears: Toxic, No Acute Distress, Chronically Ill - Head Exam Head Exam: NORMAL INSPECTION - Eye Exam Eye Exam: Normal appearance - ENT Exam ENT Exam: Mucous Membranes Moist - Respiratory Exam Respiratory Exam: NORMAL BREATHING PATTERN. absent: Accessory Muscle Use, Respiratory Distress - Cardiovascular Exam Cardiovascular Exam: Tachycardia - GI/Abdominal Exam GI & Abdominal Exam: Distended, Firm, Tenderness (diffusely TTP), Mass. absent : Soft - Neurological Exam Neurological Exam: Altered. absent: Oriented x3 - Psychiatric Exam Additional comments: non-responsive; unable to assess - Skin Skin Exam: Dry, Warm Assessment and Plan - Assessment and Plan (Free Text) Assessment: 71 y/o F w/ inoperable ovarian cancer, mets, and likely abdominal compartment syndrome d/t intra-abdominal neoplasm - pt is a poor surgical candidate - No surgical intervention - transfuse per primary - recommend palliative care Pt discussed w/ Dr. Trevor Ramon DO PGY1
[2017-03-29 08:27] LABS: POTASSIUM 6.5 mmol/L (3.6-5.0)
[2017-03-29] MEDS ORDERED: Insulin Regular 1 UNITS/0.01 ML ML IVP ONE ×2 (09:10→16:34)
[2017-03-29] MEDS ORDERED: Sod Polystyrene Sulf 15 gm/60 ml Oral Susp PR ONE ×3 (09:10→22:48)
[2017-03-29] MEDS ORDERED: Dextrose 50% SYRINGE Inj (50 ml) IVP ONE ×3 (09:10→22:51)
--- NOTE | 2017-03-29 10:02 | CP.PCM.PN ---
Subjective - Date & Time of Evaluation Date of Evaluation: 03/28/17 Time of Evaluation: 18:00 - Subjective Subjective: Patient minimally responsive. Sister at bed side and spending time with patient. Unable to assess ROS Objective - Vital Signs/Intake and Output Vital Signs (last 24 hours): Temp Pulse Resp BP Pulse Ox 97.4 F L 98 H 29 H 100/66 96 03/29/17 04:00 03/29/17 09:05 03/29/17 06:00 03/29/17 06:00 03/29/17 06:00 Intake and Output: 03/29/17 03/29/17 06:59 18:59 Intake Total 1420 Output Total 20 Balance 1400 - Medications Medications: Current Medications Acetaminophen (Tylenol 325mg Tab) 650 mg PO Q4H PRN PRN Reason: Pain, Mild (1-3) Albuterol/Ipratropium (Duoneb 3 Mg/0.5 Mg (3 Ml) Ud) 3 ml IH [id number] [facility] Last Admin: 03/29/17 07:17 Dose: 3 ml Bisacodyl (Dulcolax) 10 mg RC DAILY [facility] Last Admin: 03/28/17 09:30 Dose: 10 mg Enoxaparin Sodium (Lovenox) 60 mg SC Q12H [facility] PRN Reason: Protocol Last Admin: 03/28/17 00:07 Dose: 60 mg Meropenem 1g/NS 100mL IVPB (Meropenem 1g/Ns 100ml Ivpb) 1 gm in 100 mls @ 100 mls/hr IVPB Q12 [facility] PRN Reason: Protocol Stop: 03/30/17 13:16 Last Admin: 03/28/17 21:38 Dose: 100 mls/hr Calcium Gluconate 1,000 mg/ (Dextrose) 110 mls @ 110 mls/hr IVPB ONCE ONE Stop: 03/29/17 10:14 Ondansetron HCl (Zofran Inj) 4 mg IVP Q6H PRN PRN Reason: Nausea/Vomiting Oxycodone HCl (Oxycodone Immediate Release Tab) 5 mg PO Q6H PRN PRN Reason: Pain, severe (8-10) Last Admin: 03/28/17 09:24 Dose: 5 mg Pantoprazole Sodium (Protonix Inj) 40 mg IVP Q12 [facility] - Labs Labs: 03/29/17 06:00 03/29/17 06:00 PT 11.7 Seconds (9.9-11.8) 03/29/17 06:00 INR 1.08 (0.93-1.08) 03/29/17 06:00 APTT 26.0 Seconds (23.7-30.8) 03/29/17 06:00 - Constitutional Appears: No Acute Distress, Confused, Chronically Ill - Head Exam Head Exam: ATRAUMATIC, NORMAL INSPECTION, NORMOCEPHALIC - Respiratory Exam Respiratory Exam: Clear to Ausculation Bilateral, NORMAL BREATHING PATTERN - Cardiovascular Exam Cardiovascular Exam: REGULAR RHYTHM, +S1, +S2. absent: Murmur - GI/Abdominal Exam Additional comments: large, protuberant; +dullness to percuss;difficult to ascultate for BS - Extremities Exam Extremities Exam: Full ROM, Normal Capillary Refill, Normal Inspection. absent : Joint Swelling, Pedal Edema Assessment and Plan - Assessment and Plan (Free Text) Assessment: Ms. Sparks venus 71 y/o woman with stage IV ovaraian cancer s/p C1 carbo/taxol currently admitted for hypercapnea in setting of significant peritoneal disease and moderate malignant ascites. Patient noted to have a progressive hemoglobin dropp 10-->7->6. Concerning for a bleed. Repeat CT done today demonstrates no evidence of RP bleed- but bleeding likely intrababominally. GI and Gen Surgery have been consulted but given current condition-- no role for an intervention except for medical management. Lovenox ppx held this morning and 2 Units of PRBS ' admiinstered. Additionally recommended givine 5mg of IV Vitamin 5 and 5 units of FFP. Coags obtained demosntrated an elevated INR of 7. Fibrinogen was wnl so suspicion for DIC is low. Elevated Vit K could potentially be due to Vit K defeciency in setting of poor po intake vs liver dysfuction (though LFTs largely wnl). Sister was at bedside and we discussed prognosis at greath length. It was explained that generally that patients with stage IV ovarian CA could live for many years but the disease itself is not curable an all treatments for her cancer were palliative in nature. Additionally, the patient has other medical problems that require to be in the critical care unit. We discussed at lenghth that we would try to medically manage the patient's abdominal bleeding but that it may not be possible to reverse. There is a very real concern that the bleeding could continue to contribute to abdominal distention and potentially abdominal compartment syndrome and this could additionally affect the patients respiratory status. Consequently, the over all prognosis of the patient is critical and guarded. This was all conveyed to the patient's sister who expressed understanding. She asked to be contacted with any additional developments as necessary during the hospital course -Vitamin K 5mg IV -FFP 5 units -hold all anticoagulants -q8 CBC, Coags -GI/Surgery already consulted no role for surgical intervention
--- NOTE | 2017-03-29 10:07 | CP.PCM.PN ---
Subjective - Date & Time of Evaluation Date of Evaluation: 03/27/17 Time of Evaluation: 20:00 - Subjective Subjective: Patient had repeat CT today no visible change noted. patient endorses some abdominal pain. Able to engage slightly. Complains of pain and need to use bed jeffery but otherwise denies CP, SOB, fevers; chills; N/V; headaches, focal weakness Objective - Vital Signs/Intake and Output Vital Signs (last 24 hours): Temp Pulse Resp BP Pulse Ox 97.4 F L 98 H 29 H 100/66 96 03/29/17 04:00 03/29/17 10:00 03/29/17 06:00 03/29/17 06:00 03/29/17 06:00 Intake and Output: 03/29/17 03/29/17 06:59 18:59 Intake Total 1420 Output Total 20 Balance 1400 - Medications Medications: Current Medications Acetaminophen (Tylenol 325mg Tab) 650 mg PO Q4H PRN PRN Reason: Pain, Mild (1-3) Albuterol/Ipratropium (Duoneb 3 Mg/0.5 Mg (3 Ml) Ud) 3 ml IH [id number] [facility] Last Admin: 03/29/17 07:17 Dose: 3 ml Bisacodyl (Dulcolax) 10 mg RC DAILY [facility] Last Admin: 03/28/17 09:30 Dose: 10 mg Enoxaparin Sodium (Lovenox) 60 mg SC Q12H [facility] PRN Reason: Protocol Last Admin: 03/28/17 00:07 Dose: 60 mg Meropenem 1g/NS 100mL IVPB (Meropenem 1g/Ns 100ml Ivpb) 1 gm in 100 mls @ 100 mls/hr IVPB Q12 [facility] PRN Reason: Protocol Stop: 03/30/17 13:16 Last Admin: 03/28/17 21:38 Dose: 100 mls/hr Calcium Gluconate 1,000 mg/ (Dextrose) 110 mls @ 110 mls/hr IVPB ONCE ONE Stop: 03/29/17 10:14 Ondansetron HCl (Zofran Inj) 4 mg IVP Q6H PRN PRN Reason: Nausea/Vomiting Oxycodone HCl (Oxycodone Immediate Release Tab) 5 mg PO Q6H PRN PRN Reason: Pain, severe (8-10) Last Admin: 03/28/17 09:24 Dose: 5 mg Pantoprazole Sodium (Protonix Inj) 40 mg IVP Q12 [facility] - Labs Labs: 03/29/17 06:00 03/29/17 06:00 PT 11.7 Seconds (9.9-11.8) 03/29/17 06:00 INR 1.08 (0.93-1.08) 03/29/17 06:00 APTT 26.0 Seconds (23.7-30.8) 03/29/17 06:00 - Constitutional Appears: Non-toxic, Chronically Ill - Head Exam Head Exam: ATRAUMATIC, NORMAL INSPECTION, NORMOCEPHALIC - Respiratory Exam Respiratory Exam: Accessory Muscle Use - Cardiovascular Exam Cardiovascular Exam: REGULAR RHYTHM, +S1, +S2. absent: Murmur - GI/Abdominal Exam Additional comments: large protuberant; +shifting dullness; +tender with moderate palpation - Extremities Exam Extremities Exam: Full ROM, Normal Capillary Refill, Normal Inspection. absent : Joint Swelling, Pedal Edema Assessment and Plan - Assessment and Plan (Free Text) Plan: Ms. Sparks venus 71 y/o woman with stage IV ovaraian cancer s/p C1 carbo/taxol currently admitted for hypercapnea in setting of significant peritoneal disease and moderate malignant ascites. Patient's breathing slightly improved. Abdomen stable but continues to be large and protuberant. Majority of distension likely due to peritoneal disease. Will plan on starting patient on prn oxycodone for better pain control. The purpose of abdminstering chemotherapy is to try to reduce abdominal disease and symptomatically. All treatment efforts at this point are palliative in nature
[2017-03-29] MEDS: Meropenem 1g/NS 100mL IVPB 1 GM/100 ML PIGGYBACK IVPB SCH ×2 (10:20→21:12)
[2017-03-29] MEDS ORDERED: Albumin Human 25% (12.5 gm/50 ml) IV ONE (11:08)
[2017-03-29 11:14] LABS: ARTERIAL BLOOD GAS HCO3 21.6 mmol/L (21-28); ARTERIAL BLOOD GAS O2 CAPACITY 9.3 mL/dl (16-24); ARTERIAL BLOOD GAS O2 CONTENT 9.3 ML/dl (15-23); ARTERIAL BLOOD GAS PH 7.29 (7.35-7.45); ARTERIAL BLOOD HGB O2 SAT 96.4 % (95.0-98.0); CARBOXYHEMOGLOBIN 2.3 % (0.5-1.5); HHB 0.1 % (0-5); METHEMOGLOBIN 1.2 % (0.0-3.0)
--- NOTE | 2017-03-29 12:48 | PN ---
DATE: 03/29/2017 SUBJECTIVE: Seen and examined at the bedside this morning. The patient is now just been put on the BiPAP and is planned to have a tap of her abdomen. The patient reportedly had a soft brown small sto ol last night and is status post FFP with no reaction. The patient is very lethargic. VITAL SIGNS: Blood pressure is 100/66, pulse is 98, respirations 22, 96 O2 sat. LABORATORY DATA: WBC is 15.3, H and H are 7.3 and 21.2, platelets are 84. PT is 11.7, INR is 1.08 a nd PTT 26. Sodium is 145, her K is 6.5, BUN 109, creatinine is 2.9. The total bilirubin is 0.7, AST 506, ALT 180, alk phos is 69. The patient had a chest x-ray this morning and it shows bilateral effusions, right greater than left. There may also be mild bibasilar atelectasis with increased pulmonary vascularity suggesting pulmon fermin edema/CHF. PHYSICAL EXAMINATION: HEENT: Sclerae are anicteric. NECK: Supple. CARDIAC: S1, S2. LUNGS: With decreased breath sounds. ABDOMEN: Positive bowel sounds. Distended and firm with positive tenderness. EXTREMITIES: Positive trace edema. NEUROLOGIC: The patient is on BiPAP and not really responding. Is very lethargic. Has facial grima deanne. ASSESSMENT: A 71-year-old female with history of ovarian cancer, stage IV, and serous papillary carc inoma of the ovary. She also has history of deep venous thrombosis. Came with abdominal distention/ ascites. The patient was status post paracentesis. Had episode of hypotension with elevated INR. T he patient with large ascites and found to have blood in the peritoneal cavity. The patient also has bilateral pleural effusions, hepatitic lesions seen, carcinomatosis and possible omental metastasis. PLAN: The patient is reportedly for abdominal drainage with IR today. Monitor H and H. Make n.p.o. now as the patient is lethargic and not responsive. The patient is on IV antibiotics of meropenem. Continue GI prophylaxis and monitor H and H. The patient was seen and case discussed with Dr. Cindy salguero. Georgiana COOMBS cc: [id number] TT: 03/29/2017 12:47:07 Confirmation # [id number] Dictation # [id number] mn
[2017-03-29] MEDS ORDERED: Lidocaine 2% Inj (20ml) ONE (14:10)
[2017-03-29] MEDS ORDERED: Midazolam 2 MG/2 ML VIAL ONE (14:10)
--- NOTE | 2017-03-29 15:28 | CP.CCUPN ---
<Tena Cantu - Last Filed: 03/29/17 15:16> CCU Subjective - Physician Review Events Since Last Encounter (Free Text): 03/29/17 15:16 on 03/27 pt w/Hgb 6.7 from 10.7 Poss bleeding into abdomen INR now 1.08 from 3.74 and 7.44 on 03/28 Given 5 units FFP Subjective (Free Text): 03/29/17 15:16 Critical care progress note for Dr. Joselin Cantu, PGY-1 Pt S & E at bedside. Pt unresponsive to verbal stimuli, withdraws to toxic stimuli. Some non purposeful movements, unable to follow simple commands. Pt w/grossly distended abdomen/tense, minimal UOP. CCU Objective - Vital Signs / Intake & Output Vital Signs (Last 4 hours): Vital Signs Pulse 03/29/17 13:52 96 H Intake and Output (Last 8hrs): Intake & Output 03/29/17 03/29/17 03/29/17 06:59 14:59 22:59 Intake Total 1420 Output Total 20 Balance 1400 Weight 82.554 kg Intake: IV 1420 Left Forearm 100 right CW 1320 Output: Urine 20 Urethral ([place]) 20 Other: # Bowel Movements 1 - Physical Exam Physical Exam Limitations: Positive for: Altered Mental Status (making slight groaning noises) Head: Positive for: Atraumatic, Normocephalic Pupils: Positive for: PERRL Extroacular Muscles: Positive for: EOMI Conjunctiva: Positive for: Normal Mouth: Positive for: Moist Mucous Membranes, Normal Lips Pharnyx: Positive for: Normal Nose (External): Positive for: Atraumatic Neck: Positive for: Normal Range of Motion Respiratory/Chest: Positive for: Clear to Auscultation, Decreased Breath Sounds (diffuse BL), Tachypneic (mild ), Other (Right chest wall with portacath in place- no erythema or drainage noted). Negative for: Good Air Exchange, Respiratory Distress, Accessory Muscle Use, Rales, Retracting, Rhonchi, Tender to Palpation Cardiovascular: Positive for: Normal S1, S2, Tachycardic. Negative for: Murmurs Abdomen: Positive for: Distention (severe distention). Negative for: Tenderness , Normal Bowel Sounds (hypoactive ), Peritoneal Signs, Rebound Upper Extremity: Positive for: Normal Inspection, NORMAL PULSES, Neurovascularly Intact. Negative for: Edema Lower Extremity: Positive for: Edema (trace pitting edema BL), Temperature Abnormalties. Negative for: CALF TENDERNESS, NORMAL PULSES Neurological: Negative for: GCS=15, CN II-XII Intact (unable to assess), Speech Normal (unresponsive to verbal stimuli, sometimes with slight groans) Skin: Positive for: Warm, Dry, Normal Color, Other (skin over abdomen is thin, shiny) Psychiatric: Negative for: Alert, Oriented x 3, Normal Insight, Normal Concentration - Medications Active Medications: Active Medications Generic Name Dose Route Start Last Admin Trade Name Freq PRN Reason Stop Dose Admin Acetaminophen 650 mg 03/22/17 19:24 Tylenol 325mg Tab PO Q4H PRN Pain, Mild (1-3) Albuterol/Ipratropium 3 ml 03/26/17 20:00 03/29/17 13:52 Duoneb 3 Mg/0.5 Mg (3 Ml) Ud IH 3 ml [id number] MARCIAL Administration Bisacodyl 10 mg 03/28/17 10:00 03/28/17 09:30 Dulcolax RC 10 mg DAILY MARCIAL Administration Enoxaparin Sodium 60 mg 03/23/17 12:00 03/28/17 00:07 Lovenox SC 60 mg Q12H MARCIAL Administration Protocol Meropenem 1g/NS 100mL IVPB 1 gm in 100 mls @ 100 mls/hr 03/23/17 13:15 21:38 Meropenem 1g/Ns 100ml Ivpb IVPB 03/30/17 13:16 100 mls/hr Q12 MARCIAL Administration Protocol Ondansetron HCl 4 mg 03/22/17 16:11 Zofran Inj IVP Q6H PRN Nausea/Vomiting Oxycodone HCl 5 mg 03/27/17 17:38 03/28/17 09:24 Oxycodone Immediate Release Tab PO 5 mg Q6H PRN Administration Pain, severe (8-10) Pantoprazole Sodium 40 mg 03/29/17 10:00 Protonix Inj IVP Q12 MARCIAL - Patient Studies Lab Studies: Microbiology Studies 03/26/17 08:40 Blood Culture - Preliminary Blood-Venous NO GROWTH AFTER 3 DAYS 03/26/17 09:00 Blood Culture - Preliminary Blood-Venous NO GROWTH AFTER 3 DAYS Lab Studies 03/29/17 03/29/17 03/29/17 Range/Units 11:10 06:00 06:00 WBC (4.5-11.0) 10^3/ul RBC (3.5-6.1) 10^6/uL Hgb (12.0-16.0) gm/dL Hct (36.0-48.0) % MCV (80.0-105.0) fL MCH (25.0-35.0) pg MCHC (31.0-37.0) g/dl RDW (11.5-14.5) % Plt Count (120.0-450.0) 10^3/uL MPV (7.0-11.0) fl Gran % (50.0-68.0) % Lymph % (Auto) (22.0-35.0) % [place] % (Auto) (1.0-6.0) % Eos % (Auto) (1.5-5.0) % Baso % (Auto) (0.0-3.0) % Gran # (1.4-6.5) Lymph # (1.2-3.4) [place] # (0.1-0.6) Eos # (0.0-0.7) Baso # (0.0-2.0) K/mm3 Neutrophils % (Manual) (50.0-70.0) % Band Neutrophils % (0-2) % Lymphocytes % (Manual) (22.0-35.0) % Monocytes % (Manual) Poikilocytosis (manual PT 11.7 (9.9-11.8) Seconds INR 1.08 (0.93-1.08) APTT 26.0 (23.7-30.8) Seconds pCO2 45 (35-45) mm/Hg pO2 104.0 H (80-100) mm/Hg HCO3 21.6 (21-28) mmol/L ABG pH 7.29 L (7.35-7.45) ABG Total CO2 23.0 (22-28) mmol.L ABG O2 Saturation 99.9 H (95-98) % ABG O2 Content 9.3 L (15-23) ML/dl ABG Base Excess -4.6 L (-2.0-3.0) mmol/L ABG Hemoglobin 6.7 L (11.7-17.4) g/dL ABG Carboxyhemoglobin 2.3 H (0.5-1.5) % POC ABG HHb (Measured) 0.1 (0-5) % ABG Methemoglobin 1.2 (0.0-3.0) % ABG O2 Capacity 9.3 L (16-24) mL/dl Hgb O2 Saturation 96.4 (95.0-98.0) % FiO2 35.0 % Sodium 145 (132-148) mmol/L Potassium 6.5 H* D (3.6-5.0) mmol/L Chloride 107 (95-110) mmol/L Carbon Dioxide 25 (21-33) mmol/L Anion Gap 20 (10-20) BUN 109 H (7-21) mg/dL Creatinine 2.9 H (0.5-1.4) mg/dL Est GFR ( Amer) 19 Est GFR (Non-Af Amer) 16 POC Glucose (mg/dL) (65-110) mg/dL Random Glucose 144 H (70-110) mg/dL Calcium 8.2 L (8.4-10.5) mg/dL Total Bilirubin 0.7 (0.2-1.3) mg/dL AST 506 H (15-39) U/L ALT 180 H (7-56) U/L Alkaline Phosphatase 69 (38-133) U/L Total Protein 6.5 (5.8-8.3) g/dL Albumin 3.7 (3.0-4.8) g/dL Globulin 2.7 gm/dL Albumin/Globulin Ratio 1.4 (1.1-1.8) Urine Color (YELLOW) Urine Appearance (CLEAR) Urine pH (4.7-8.0) Ur Specific [place] (1.005-1.035) Urine Protein (<30 mg/dL) mg/dL Urine Glucose (UA) (NEGATIVE) mg/dL Urine Ketones (NEGATIVE) mg/dL Urine Blood (NEGATIVE) Urine Nitrate (NEGATIVE) Urine Bilirubin (NEGATIVE) Urine Urobilinogen (<1 E.U./dL) E.U./dL Ur Leukocyte Esterase (NEGATIVE) Dylon/uL Urine RBC (0-2) /hpf Urine WBC (0-6) /hpf Ur Epithelial Cells (0-5) /hpf Crossmatch 03/29/17 03/28/17 03/28/17 Range/Units 06:00 20:10 18:11 WBC 15.3 H 14.1 H D (4.5-11.0) 10^3/ul RBC 2.42 L 3.36 L (3.5-6.1) 10^6/uL Hgb 7.3 L D 9.9 L (12.0-16.0) gm/dL Hct 21.2 L 30.1 L (36.0-48.0) % MCV 87.6 89.6 (80.0-105.0) fL MCH 30.2 29.5 (25.0-35.0) pg MCHC 34.4 32.9 (31.0-37.0) g/dl RDW 14.8 H 14.2 (11.5-14.5) % Plt Count 84 L 129 (120.0-450.0) 10^3/uL MPV 11.4 H 11.4 H (7.0-11.0) fl Gran % 98.9 H (50.0-68.0) % Lymph % (Auto) 0.7 L (22.0-35.0) % [place] % (Auto) 0.4 L (1.0-6.0) % Eos % (Auto) 0.0 L (1.5-5.0) % Baso % (Auto) 0.0 (0.0-3.0) % Gran # 15.09 H (1.4-6.5) Lymph # 0.1 L (1.2-3.4) [place] # 0.1 (0.1-0.6) Eos # 0.0 (0.0-0.7) Baso # 0.00 (0.0-2.0) K/mm3 Neutrophils % (Manual) 98 H (50.0-70.0) % Band Neutrophils % 1 (0-2) % Lymphocytes % (Manual) 1 L (22.0-35.0) % Monocytes % (Manual) TEST NOT PERFORMED Poikilocytosis (manual Slight PT (9.9-11.8) Seconds INR (0.93-1.08) APTT (23.7-30.8) Seconds pCO2 (35-45) mm/Hg pO2 (80-100) mm/Hg HCO3 (21-28) mmol/L ABG pH (7.35-7.45) ABG Total CO2 (22-28) mmol.L ABG O2 Saturation (95-98) % ABG O2 Content (15-23) ML/dl ABG Base Excess (-2.0-3.0) mmol/L ABG Hemoglobin (11.7-17.4) g/dL ABG Carboxyhemoglobin (0.5-1.5) % POC ABG HHb (Measured) (0-5) % ABG Methemoglobin (0.0-3.0) % ABG O2 Capacity (16-24) mL/dl Hgb O2 Saturation (95.0-98.0) % FiO2 % Sodium (132-148) mmol/L Potassium (3.6-5.0) mmol/L Chloride (95-110) mmol/L Carbon Dioxide (21-33) mmol/L Anion Gap (10-20) BUN (7-21) mg/dL Creatinine (0.5-1.4) mg/dL Est GFR ( Amer) Est GFR (Non-Af Amer) POC Glucose (mg/dL) (65-110) mg/dL Random Glucose (70-110) mg/dL Calcium (8.4-10.5) mg/dL Total Bilirubin (0.2-1.3) mg/dL AST (15-39) U/L ALT (7-56) U/L Alkaline Phosphatase (38-133) U/L Total Protein (5.8-8.3) g/dL Albumin (3.0-4.8) g/dL Globulin gm/dL Albumin/Globulin Ratio (1.1-1.8) Urine Color Yellow (YELLOW) Urine Appearance Clear (CLEAR) Urine pH 5.5 (4.7-8.0) Ur Specific [place] 1.025 (1.005-1.035) Urine Protein Trace H (<30 mg/dL) mg/dL Urine Glucose (UA) Negative (NEGATIVE) mg/dL Urine Ketones Trace H (NEGATIVE) mg/dL Urine Blood Negative (NEGATIVE) Urine Nitrate Negative (NEGATIVE) Urine Bilirubin Negative (NEGATIVE) Urine Urobilinogen 0.2 (<1 E.U./dL) E.U./dL Ur Leukocyte Esterase Negative (NEGATIVE) Dylon/uL Urine RBC 0 - 2 (0-2) /hpf Urine WBC 0 - 2 (0-6) /hpf Ur Epithelial Cells 0 - 2 (0-5) /hpf Crossmatch 03/28/17 03/28/17 03/28/17 Range/Units 18:11 18:00 09:10 WBC (4.5-11.0) 10^3/ul RBC (3.5-6.1) 10^6/uL Hgb (12.0-16.0) gm/dL Hct (36.0-48.0) % MCV (80.0-105.0) fL MCH (25.0-35.0) pg MCHC (31.0-37.0) g/dl RDW (11.5-14.5) % Plt Count (120.0-450.0) 10^3/uL MPV (7.0-11.0) fl Gran % (50.0-68.0) % Lymph % (Auto) (22.0-35.0) % [place] % (Auto) (1.0-6.0) % Eos % (Auto) (1.5-5.0) % Baso % (Auto) (0.0-3.0) % Gran # (1.4-6.5) Lymph # (1.2-3.4) [place] # (0.1-0.6) Eos # (0.0-0.7) Baso # (0.0-2.0) K/mm3 Neutrophils % (Manual) (50.0-70.0) % Band Neutrophils % (0-2) % Lymphocytes % (Manual) (22.0-35.0) % Monocytes % (Manual) Poikilocytosis (manual PT 40.4 H* (9.9-11.8) Seconds INR 3.74 H* (0.93-1.08) APTT 51.4 H (23.7-30.8) Seconds pCO2 (35-45) mm/Hg pO2 (80-100) mm/Hg HCO3 (21-28) mmol/L ABG pH (7.35-7.45) ABG Total CO2 (22-28) mmol.L ABG O2 Saturation (95-98) % ABG O2 Content (15-23) ML/dl ABG Base Excess (-2.0-3.0) mmol/L ABG Hemoglobin (11.7-17.4) g/dL ABG Carboxyhemoglobin (0.5-1.5) % POC ABG HHb (Measured) (0-5) % ABG Methemoglobin (0.0-3.0) % ABG O2 Capacity (16-24) mL/dl Hgb O2 Saturation (95.0-98.0) % FiO2 % Sodium 143 (132-148) mmol/L Potassium 5.9 H* (3.6-5.0) mmol/L Chloride 110 H (95-110) mmol/L Carbon Dioxide 21 (21-33) mmol/L Anion Gap 18 (10-20) BUN 98 H (7-21) mg/dL Creatinine 2.6 H (0.5-1.4) mg/dL Est GFR ( Amer) 22 Est GFR (Non-Af Amer) 18 POC Glucose (mg/dL) (65-110) mg/dL Random Glucose 162 H (70-110) mg/dL Calcium 8.1 L (8.4-10.5) mg/dL Total Bilirubin 0.7 (0.2-1.3) mg/dL AST 511 H (15-39) U/L ALT 203 H (7-56) U/L Alkaline Phosphatase 42 (38-133) U/L Total Protein 5.4 L (5.8-8.3) g/dL Albumin 3.1 (3.0-4.8) g/dL Globulin 2.3 gm/dL Albumin/Globulin Ratio 1.3 (1.1-1.8) Urine Color (YELLOW) Urine Appearance (CLEAR) Urine pH (4.7-8.0) Ur Specific [place] (1.005-1.035) Urine Protein (<30 mg/dL) mg/dL Urine Glucose (UA) (NEGATIVE) mg/dL Urine Ketones (NEGATIVE) mg/dL Urine Blood (NEGATIVE) Urine Nitrate (NEGATIVE) Urine Bilirubin (NEGATIVE) Urine Urobilinogen (<1 E.U./dL) E.U./dL Ur Leukocyte Esterase (NEGATIVE) Dylon/uL Urine RBC (0-2) /hpf Urine WBC (0-6) /hpf Ur Epithelial Cells (0-5) /hpf Crossmatch See Detail 03/26/17 03/25/17 Range/Units 15:00 05:00 WBC (4.5-11.0) 10^3/ul RBC (3.5-6.1) 10^6/uL Hgb (12.0-16.0) gm/dL Hct (36.0-48.0) % MCV (80.0-105.0) fL MCH (25.0-35.0) pg MCHC (31.0-37.0) g/dl RDW (11.5-14.5) % Plt Count (120.0-450.0) 10^3/uL MPV (7.0-11.0) fl Gran % (50.0-68.0) % Lymph % (Auto) (22.0-35.0) % [place] % (Auto) (1.0-6.0) % Eos % (Auto) (1.5-5.0) % Baso % (Auto) (0.0-3.0) % Gran # (1.4-6.5) Lymph # (1.2-3.4) [place] # (0.1-0.6) Eos # (0.0-0.7) Baso # (0.0-2.0) K/mm3 Neutrophils % (Manual) (50.0-70.0) % Band Neutrophils % (0-2) % Lymphocytes % (Manual) (22.0-35.0) % Monocytes % (Manual) Poikilocytosis (manual PT (9.9-11.8) Seconds INR (0.93-1.08) APTT (23.7-30.8) Seconds pCO2 (35-45) mm/Hg pO2 (80-100) mm/Hg HCO3 (21-28) mmol/L ABG pH (7.35-7.45) ABG Total CO2 (22-28) mmol.L ABG O2 Saturation (95-98) % ABG O2 Content (15-23) ML/dl ABG Base Excess (-2.0-3.0) mmol/L ABG Hemoglobin (11.7-17.4) g/dL ABG Carboxyhemoglobin (0.5-1.5) % POC ABG HHb (Measured) (0-5) % ABG Methemoglobin (0.0-3.0) % ABG O2 Capacity (16-24) mL/dl Hgb O2 Saturation (95.0-98.0) % FiO2 % Sodium 138 (132-148) mmol/L Potassium 5.1 H (3.6-5.0) mmol/L Chloride 101 (95-110) mmol/L Carbon Dioxide 23 (21-33) mmol/L Anion Gap 19 (10-20) BUN 71 H (7-21) mg/dL Creatinine 2.2 H (0.5-1.4) mg/dL Est GFR ( Amer) 26 Est GFR (Non-Af Amer) 22 POC Glucose (mg/dL) 158 H (65-110) mg/dL Random Glucose 101 (70-110) mg/dL Calcium 8.5 (8.4-10.5) mg/dL Total Bilirubin 0.4 (0.2-1.3) mg/dL AST 23 (15-39) U/L ALT 22 (7-56) U/L Alkaline Phosphatase 47 (38-133) U/L Total Protein 6.2 (5.8-8.3) g/dL Albumin 3.3 (3.0-4.8) g/dL Globulin 2.9 gm/dL Albumin/Globulin Ratio 1.1 (1.1-1.8) Urine Color (YELLOW) Urine Appearance (CLEAR) Urine pH (4.7-8.0) Ur Specific [place] (1.005-1.035) Urine Protein (<30 mg/dL) mg/dL Urine Glucose (UA) (NEGATIVE) mg/dL Urine Ketones (NEGATIVE) mg/dL Urine Blood (NEGATIVE) Urine Nitrate (NEGATIVE) Urine Bilirubin (NEGATIVE) Urine Urobilinogen (<1 E.U./dL) E.U./dL Ur Leukocyte Esterase (NEGATIVE) Dylon/uL Urine RBC (0-2) /hpf Urine WBC (0-6) /hpf Ur Epithelial Cells (0-5) /hpf Crossmatch Laboratory Results - last 24 hr 03/25/17 03/26/17 03/28/17 05:00 15:00 09:10 WBC RBC Hgb Hct MCV MCH MCHC RDW Plt Count MPV Gran % Lymph % (Auto) [place] % (Auto) Eos % (Auto) Baso % (Auto) Gran # Lymph # [place] # Eos # Baso # Neutrophils % (Manual) Band Neutrophils % Lymphocytes % (Manual) Monocytes % (Manual) Poikilocytosis (manual PT INR APTT pCO2 pO2 HCO3 ABG pH ABG Total CO2 ABG O2 Saturation ABG O2 Content ABG Base Excess ABG Hemoglobin ABG Carboxyhemoglobin POC ABG HHb (Measured) ABG Methemoglobin ABG O2 Capacity Hgb O2 Saturation FiO2 Sodium 138 Potassium 5.1 H Chloride 101 Carbon Dioxide 23 Anion Gap 19 BUN 71 H Creatinine 2.2 H Est GFR ( Amer) 26 Est GFR (Non-Af Amer) 22 POC Glucose (mg/dL) 158 H Random Glucose 101 Calcium 8.5 Total Bilirubin 0.4 AST 23 ALT 22 Alkaline Phosphatase 47 Total Protein 6.2 Albumin 3.3 Globulin 2.9 Albumin/Globulin Ratio 1.1 Urine Color Urine Appearance Urine pH Ur Specific [place] Urine Protein Urine Glucose (UA) Urine Ketones Urine Blood Urine Nitrate Urine Bilirubin Urine Urobilinogen Ur Leukocyte Esterase Urine RBC Urine WBC Ur Epithelial Cells Crossmatch See Detail 03/28/17 03/28/17 03/28/17 18:00 18:11 18:11 WBC 14.1 H D RBC 3.36 L Hgb 9.9 L Hct 30.1 L MCV 89.6 MCH 29.5 MCHC 32.9 RDW 14.2 Plt Count 129 MPV 11.4 H Gran % Lymph % (Auto) [place] % (Auto) Eos % (Auto) Baso % (Auto) Gran # Lymph # [place] # Eos # Baso # Neutrophils % (Manual) 98 H Band Neutrophils % 1 Lymphocytes % (Manual) 1 L Monocytes % (Manual) TEST NOT PERFORMED Poikilocytosis (manual Slight PT 40.4 H* INR 3.74 H* APTT 51.4 H pCO2 pO2 HCO3 ABG pH ABG Total CO2 ABG O2 Saturation ABG O2 Content ABG Base Excess ABG Hemoglobin ABG Carboxyhemoglobin POC ABG HHb (Measured) ABG Methemoglobin ABG O2 Capacity Hgb O2 Saturation FiO2 Sodium 143 Potassium 5.9 H* Chloride 110 H Carbon Dioxide 21 Anion Gap 18 BUN 98 H Creatinine 2.6 H Est GFR ( Amer) 22 Est GFR (Non-Af Amer) 18 POC Glucose (mg/dL) Random Glucose 162 H Calcium 8.1 L Total Bilirubin 0.7 AST 511 H ALT 203 H Alkaline Phosphatase 42 Total Protein 5.4 L Albumin 3.1 Globulin 2.3 Albumin/Globulin Ratio 1.3 Urine Color Urine Appearance Urine pH Ur Specific [place] Urine Protein Urine Glucose (UA) Urine Ketones Urine Blood Urine Nitrate Urine Bilirubin Urine Urobilinogen Ur Leukocyte Esterase Urine RBC Urine WBC Ur Epithelial Cells Crossmatch 03/28/17 03/29/17 03/29/17 20:10 06:00 06:00 WBC 15.3 H RBC 2.42 L Hgb 7.3 L D Hct 21.2 L MCV 87.6 MCH 30.2 MCHC 34.4 RDW 14.8 H Plt Count 84 L MPV 11.4 H Gran % 98.9 H Lymph % (Auto) 0.7 L [place] % (Auto) 0.4 L Eos % (Auto) 0.0 L Baso % (Auto) 0.0 Gran # 15.09 H Lymph # 0.1 L [place] # 0.1 Eos # 0.0 Baso # 0.00 Neutrophils % (Manual) Band Neutrophils % Lymphocytes % (Manual) Monocytes % (Manual) Poikilocytosis (manual PT INR APTT pCO2 pO2 HCO3 ABG pH ABG Total CO2 ABG O2 Saturation ABG O2 Content ABG Base Excess ABG Hemoglobin ABG Carboxyhemoglobin POC ABG HHb (Measured) ABG Methemoglobin ABG O2 Capacity Hgb O2 Saturation FiO2 Sodium 145 Potassium 6.5 H* D Chloride 107 Carbon Dioxide 25 Anion Gap 20 BUN 109 H Creatinine 2.9 H Est GFR ( Amer) 19 Est GFR (Non-Af Amer) 16 POC Glucose (mg/dL) Random Glucose 144 H Calcium 8.2 L Total Bilirubin 0.7 AST 506 H ALT 180 H Alkaline Phosphatase 69 Total Protein 6.5 Albumin 3.7 Globulin 2.7 Albumin/Globulin Ratio 1.4 Urine Color Yellow Urine Appearance Clear Urine pH 5.5 Ur Specific [place] 1.025 Urine Protein Trace H Urine Glucose (UA) Negative Urine Ketones Trace H Urine Blood Negative Urine Nitrate Negative Urine Bilirubin Negative Urine Urobilinogen 0.2 Ur Leukocyte Esterase Negative Urine RBC 0 - 2 Urine WBC 0 - 2 Ur Epithelial Cells 0 - 2 Crossmatch 03/29/17 03/29/17 06:00 11:10 WBC RBC Hgb Hct MCV MCH MCHC RDW Plt Count MPV Gran % Lymph % (Auto) [place] % (Auto) Eos % (Auto) Baso % (Auto) Gran # Lymph # [place] # Eos # Baso # Neutrophils % (Manual) Band Neutrophils % Lymphocytes % (Manual) Monocytes % (Manual) Poikilocytosis (manual PT 11.7 INR 1.08 APTT 26.0 pCO2 45 pO2 104.0 H HCO3 21.6 ABG pH 7.29 L ABG Total CO2 23.0 ABG O2 Saturation 99.9 H ABG O2 Content 9.3 L ABG Base Excess -4.6 L ABG Hemoglobin 6.7 L ABG Carboxyhemoglobin 2.3 H POC ABG HHb (Measured) 0.1 ABG Methemoglobin 1.2 ABG O2 Capacity 9.3 L Hgb O2 Saturation 96.4 FiO2 35.0 Sodium Potassium Chloride Carbon Dioxide Anion Gap BUN Creatinine Est GFR ( Amer) Est GFR (Non-Af Amer) POC Glucose (mg/dL) Random Glucose Calcium Total Bilirubin AST ALT Alkaline Phosphatase Total Protein Albumin Globulin Albumin/Globulin Ratio Urine Color Urine Appearance Urine pH Ur Specific [place] Urine Protein Urine Glucose (UA) Urine Ketones Urine Blood Urine Nitrate Urine Bilirubin Urine Urobilinogen Ur Leukocyte Esterase Urine RBC Urine WBC Ur Epithelial Cells Crossmatch Review of Systems - Review of Systems Systems not reviewed;Unavailable: Altered Mental Status All systems: reviewed and no additional remarkable complaints except - Constitutional Constitutional: absent: Fever Critical Care Progress Note - Ventilator Checklist PUD Prophalyxis: Yes DVT Prophylaxis: Yes - Extremities/Vascular Does the Patient have a Central Venous Catheter?: No Does the Patient need a Central Venous Catheter?: No Does the Patient have a [place] Catheter?: Yes Does the Patient need a [place] Catheter?: Yes Catheter Insertion Criteria: Need for accurate measurement of output in critically ill patient - Prophylaxis GI Prophylaxis GI: PPI - Nutrition Nutrition: Nutrition Category Date Time Status Liquid Diet [DIET] Diets 03/28/17 Lunch Ordered Assessment/Plan - Assessment and Plan (Free Text) Assessment: 71F w/PMH sig for stage 4 ovarian CA, LUKE, ascites s/p paracentesis with hypotension, s/p acute hypercapneic respiratory failure, AMS, currently with grossly distended abdomen- likely 2/2 abdominal compartment syndrome- will send for IR abdominal cath placement to attempt to relieve intra-abdominal pressure. Very poor prognosis. Plan: Neuro AMS Unresponsive to verbal stimuli Withdraws to toxic stimuli Non purposeful movements Monitor CVS Episodes of hypotension over last 24H Tachycardic in low 100's Possible compression of IVC 2/2 increased intra-abdominal pressures For IR placement of abdominal aspiration cath placement Pulm s/p hypercapneic respiratory failure Continues on Bipap ABG pH 7.29, pCO2 45, pO2 104, HCO3 21.6 Target SaO2 >94% Cont duonebs HOB to 45 degrees Monitor GI Grossly distended likely 2/2 Abdominal compartment syndrome Hx ovarian CA stage 4 Cont Dulcolax FLD as per surgery Will assess mental status, may change diet to NPO if warranted Supplements as per primary Transaminitis- improving AST 506 melissa 511 ALT 180 from 203 Monitor Zofran PRN N/V Oxycodone 5mg Q6H PRN pain Tylenol 650mg PO Q4H PRN mild pain IR consulted for pallative abdominal aspiration cath placement Surgery following- no surgical intervention at this time GI following Heme/onc following Nephro Hyperkalemia- K 6.5 from 5.9 Calcium Gluconate Insulin D50 Kayexelate MD LUKE- worsening BUN 109 from 98 Cr 2.9 from 2.6 Avoid nephrotoxic meds I/O's Monitor Nephro following Carson in place UOP poor- 70cc/24H Likely 2/2 intra-abdominal compression and abdominal compartment syndrome Monitor Endo BS 144 Target euglycemia as per NICE sugar trial ID Afebrile Leukocytosis of 15.3 from 14.1 Cont Merrem as per ID ID following Heme Hx DVT- was placed on 60mg Lovenox Q12H as per nurse practitioner- order held after drop in H/H over weekend Hgb 7.3 from 9.9 Hct 21.2 from 30.1 Plts 84 from 129 Possible intra-abdominal bleed s/p 5 units FFP D-dimer 9.84 Albumin 12.5gm of 25% ordered Will order more Albumin after IR intervention today MSK Monitor for skin break down GI/DVT ppx Contraindications to VTE ppx - 2/2 poss intra-abdominal bleed Protonix Dispo Re-instated DNR/DNI as per conversation between Dr. Antonio and Dr. Kaur IR intervention today Albumin ordered - to be administered Cont ICU care - Date & Time Date: 03/29/17 Time: 07:30 <Marisela MARY,Mingo H - Last Filed: 03/29/17 15:59> CCU Objective - Vital Signs / Intake & Output Vital Signs (Last 4 hours): Vital Signs Pulse 03/29/17 13:52 96 H Intake and Output (Last 8hrs): Intake & Output 03/29/17 03/29/17 03/29/17 06:59 14:59 22:59 Intake Total 1420 Output Total 20 Balance 1400 Weight 182 lb Intake: IV 1420 Left Forearm 100 right CW 1320 Output: Urine 20 Urethral ([place]) 20 Other: # Bowel Movements 1 - Medications Active Medications: Active Medications Generic Name Dose Route Start Last Admin Trade Name Freq PRN Reason Stop Dose Admin Acetaminophen 650 mg 03/22/17 19:24 Tylenol 325mg Tab PO Q4H PRN Pain, Mild (1-3) Albumin Human 25 gm 03/29/17 16:00 Albumin Human 25% (25 Gm/100 Ml) IV 03/30/17 04:01 Q4 MARCIAL Albuterol/Ipratropium 3 ml 03/26/17 20:00 03/29/17 13:52 Duoneb 3 Mg/0.5 Mg (3 Ml) Ud IH 3 ml [id number] MARCIAL Administration Bisacodyl 10 mg 03/28/17 10:00 03/28/17 09:30 Dulcolax RC 10 mg DAILY MARCIAL Administration Enoxaparin Sodium 60 mg 03/23/17 12:00 03/28/17 00:07 Lovenox SC 60 mg Q12H MARCIAL Administration Protocol Meropenem 1g/NS 100mL IVPB 1 gm in 100 mls @ 100 mls/hr 03/23/17 13:15 21:38 Meropenem 1g/Ns 100ml Ivpb IVPB 03/30/17 13:16 100 mls/hr Q12 MARCIAL Administration Protocol Ondansetron HCl 4 mg 03/22/17 16:11 Zofran Inj IVP Q6H PRN Nausea/Vomiting Oxycodone HCl 5 mg 03/27/17 17:38 03/28/17 09:24 Oxycodone Immediate Release Tab PO 5 mg Q6H PRN Administration Pain, severe (8-10) Pantoprazole Sodium 40 mg 03/29/17 10:00 Protonix Inj IVP Q12 MARCIAL - Patient Studies Lab Studies: Microbiology Studies 03/26/17 08:40 Blood Culture - Preliminary Blood-Venous NO GROWTH AFTER 3 DAYS 03/26/17 09:00 Blood Culture - Preliminary Blood-Venous NO GROWTH AFTER 3 DAYS Lab Studies 03/29/17 03/29/17 03/29/17 Range/Units 11:10 06:00 06:00 WBC (4.5-11.0) 10^3/ul RBC (3.5-6.1) 10^6/uL Hgb (12.0-16.0) gm/dL Hct (36.0-48.0) % MCV (80.0-105.0) fL MCH (25.0-35.0) pg MCHC (31.0-37.0) g/dl RDW (11.5-14.5) % Plt Count (120.0-450.0) 10^3/uL MPV (7.0-11.0) fl Gran % (50.0-68.0) % Lymph % (Auto) (22.0-35.0) % [place] % (Auto) (1.0-6.0) % Eos % (Auto) (1.5-5.0) % Baso % (Auto) (0.0-3.0) % Gran # (1.4-6.5) Lymph # (1.2-3.4) [place] # (0.1-0.6) Eos # (0.0-0.7) Baso # (0.0-2.0) K/mm3 Neutrophils % (Manual) (50.0-70.0) % Band Neutrophils % (0-2) % Lymphocytes % (Manual) (22.0-35.0) % Monocytes % (Manual) Poikilocytosis (manual PT 11.7 (9.9-11.8) Seconds INR 1.08 (0.93-1.08) APTT 26.0 (23.7-30.8) Seconds pCO2 45 (35-45) mm/Hg pO2 104.0 H (80-100) mm/Hg HCO3 21.6 (21-28) mmol/L ABG pH 7.29 L (7.35-7.45) ABG Total CO2 23.0 (22-28) mmol.L ABG O2 Saturation 99.9 H (95-98) % ABG O2 Content 9.3 L (15-23) ML/dl ABG Base Excess -4.6 L (-2.0-3.0) mmol/L ABG Hemoglobin 6.7 L (11.7-17.4) g/dL ABG Carboxyhemoglobin 2.3 H (0.5-1.5) % POC ABG HHb (Measured) 0.1 (0-5) % ABG Methemoglobin 1.2 (0.0-3.0) % ABG O2 Capacity 9.3 L (16-24) mL/dl Hgb O2 Saturation 96.4 (95.0-98.0) % FiO2 35.0 % Sodium 145 (132-148) mmol/L Potassium 6.5 H* D (3.6-5.0) mmol/L Chloride 107 (95-110) mmol/L Carbon Dioxide 25 (21-33) mmol/L Anion Gap 20 (10-20) BUN 109 H (7-21) mg/dL Creatinine 2.9 H (0.5-1.4) mg/dL Est GFR ( Amer) 19 Est GFR (Non-Af Amer) 16 POC Glucose (mg/dL) (65-110) mg/dL Random Glucose 144 H (70-110) mg/dL Calcium 8.2 L (8.4-10.5) mg/dL Total Bilirubin 0.7 (0.2-1.3) mg/dL AST 506 H (15-39) U/L ALT 180 H (7-56) U/L Alkaline Phosphatase 69 (38-133) U/L Total Protein 6.5 (5.8-8.3) g/dL Albumin 3.7 (3.0-4.8) g/dL Globulin 2.7 gm/dL Albumin/Globulin Ratio 1.4 (1.1-1.8) Urine Color (YELLOW) Urine Appearance (CLEAR) Urine pH (4.7-8.0) Ur Specific [place] (1.005-1.035) Urine Protein (<30 mg/dL) mg/dL Urine Glucose (UA) (NEGATIVE) mg/dL Urine Ketones (NEGATIVE) mg/dL Urine Blood (NEGATIVE) Urine Nitrate (NEGATIVE) Urine Bilirubin (NEGATIVE) Urine Urobilinogen (<1 E.U./dL) E.U./dL Ur Leukocyte Esterase (NEGATIVE) Dylon/uL Urine RBC (0-2) /hpf Urine WBC (0-6) /hpf Ur Epithelial Cells (0-5) /hpf Crossmatch 03/29/17 03/28/17 03/28/17 Range/Units 06:00 20:10 18:11 WBC 15.3 H 14.1 H D (4.5-11.0) 10^3/ul RBC 2.42 L 3.36 L (3.5-6.1) 10^6/uL Hgb 7.3 L D 9.9 L (12.0-16.0) gm/dL Hct 21.2 L 30.1 L (36.0-48.0) % MCV 87.6 89.6 (80.0-105.0) fL MCH 30.2 29.5 (25.0-35.0) pg MCHC 34.4 32.9 (31.0-37.0) g/dl RDW 14.8 H 14.2 (11.5-14.5) % Plt Count 84 L 129 (120.0-450.0) 10^3/uL MPV 11.4 H 11.4 H (7.0-11.0) fl Gran % 98.9 H (50.0-68.0) % Lymph % (Auto) 0.7 L (22.0-35.0) % [place] % (Auto) 0.4 L (1.0-6.0) % Eos % (Auto) 0.0 L (1.5-5.0) % Baso % (Auto) 0.0 (0.0-3.0) % Gran # 15.09 H (1.4-6.5) Lymph # 0.1 L (1.2-3.4) [place] # 0.1 (0.1-0.6) Eos # 0.0 (0.0-0.7) Baso # 0.00 (0.0-2.0) K/mm3 Neutrophils % (Manual) 98 H (50.0-70.0) % Band Neutrophils % 1 (0-2) % Lymphocytes % (Manual) 1 L (22.0-35.0) % Monocytes % (Manual) TEST NOT PERFORMED Poikilocytosis (manual Slight PT (9.9-11.8) Seconds INR (0.93-1.08) APTT (23.7-30.8) Seconds pCO2 (35-45) mm/Hg pO2 (80-100) mm/Hg HCO3 (21-28) mmol/L ABG pH (7.35-7.45) ABG Total CO2 (22-28) mmol.L ABG O2 Saturation (95-98) % ABG O2 Content (15-23) ML/dl ABG Base Excess (-2.0-3.0) mmol/L ABG Hemoglobin (11.7-17.4) g/dL ABG Carboxyhemoglobin (0.5-1.5) % POC ABG HHb (Measured) (0-5) % ABG Methemoglobin (0.0-3.0) % ABG O2 Capacity (16-24) mL/dl Hgb O2 Saturation (95.0-98.0) % FiO2 % Sodium (132-148) mmol/L Potassium (3.6-5.0) mmol/L Chloride (95-110) mmol/L Carbon Dioxide (21-33) mmol/L Anion Gap (10-20) BUN (7-21) mg/dL Creatinine (0.5-1.4) mg/dL Est GFR ( Amer) Est GFR (Non-Af Amer) POC Glucose (mg/dL) (65-110) mg/dL Random Glucose (70-110) mg/dL Calcium (8.4-10.5) mg/dL Total Bilirubin (0.2-1.3) mg/dL AST (15-39) U/L ALT (7-56) U/L Alkaline Phosphatase (38-133) U/L Total Protein (5.8-8.3) g/dL Albumin (3.0-4.8) g/dL Globulin gm/dL Albumin/Globulin Ratio (1.1-1.8) Urine Color Yellow (YELLOW) Urine Appearance Clear (CLEAR) Urine pH 5.5 (4.7-8.0) Ur Specific [place] 1.025 (1.005-1.035) Urine Protein Trace H (<30 mg/dL) mg/dL Urine Glucose (UA) Negative (NEGATIVE) mg/dL Urine Ketones Trace H (NEGATIVE) mg/dL Urine Blood Negative (NEGATIVE) Urine Nitrate Negative (NEGATIVE) Urine Bilirubin Negative (NEGATIVE) Urine Urobilinogen 0.2 (<1 E.U./dL) E.U./dL Ur Leukocyte Esterase Negative (NEGATIVE) Dylon/uL Urine RBC 0 - 2 (0-2) /hpf Urine WBC 0 - 2 (0-6) /hpf Ur Epithelial Cells 0 - 2 (0-5) /hpf Crossmatch 03/28/17 03/28/17 03/28/17 Range/Units 18:11 18:00 09:10 WBC (4.5-11.0) 10^3/ul RBC (3.5-6.1) 10^6/uL Hgb (12.0-16.0) gm/dL Hct (36.0-48.0) % MCV (80.0-105.0) fL MCH (25.0-35.0) pg MCHC (31.0-37.0) g/dl RDW (11.5-14.5) % Plt Count (120.0-450.0) 10^3/uL MPV (7.0-11.0) fl Gran % (50.0-68.0) % Lymph % (Auto) (22.0-35.0) % [place] % (Auto) (1.0-6.0) % Eos % (Auto) (1.5-5.0) % Baso % (Auto) (0.0-3.0) % Gran # (1.4-6.5) Lymph # (1.2-3.4) [place] # (0.1-0.6) Eos # (0.0-0.7) Baso # (0.0-2.0) K/mm3 Neutrophils % (Manual) (50.0-70.0) % Band Neutrophils % (0-2) % Lymphocytes % (Manual) (22.0-35.0) % Monocytes % (Manual) Poikilocytosis (manual PT 40.4 H* (9.9-11.8) Seconds INR 3.74 H* (0.93-1.08) APTT 51.4 H (23.7-30.8) Seconds pCO2 (35-45) mm/Hg pO2 (80-100) mm/Hg HCO3 (21-28) mmol/L ABG pH (7.35-7.45) ABG Total CO2 (22-28) mmol.L ABG O2 Saturation (95-98) % ABG O2 Content (15-23) ML/dl ABG Base Excess (-2.0-3.0) mmol/L ABG Hemoglobin (11.7-17.4) g/dL ABG Carboxyhemoglobin (0.5-1.5) % POC ABG HHb (Measured) (0-5) % ABG Methemoglobin (0.0-3.0) % ABG O2 Capacity (16-24) mL/dl Hgb O2 Saturation (95.0-98.0) % FiO2 % Sodium 143 (132-148) mmol/L Potassium 5.9 H* (3.6-5.0) mmol/L Chloride 110 H (95-110) mmol/L Carbon Dioxide 21 (21-33) mmol/L Anion Gap 18 (10-20) BUN 98 H (7-21) mg/dL Creatinine 2.6 H (0.5-1.4) mg/dL Est GFR ( Amer) 22 Est GFR (Non-Af Amer) 18 POC Glucose (mg/dL) (65-110) mg/dL Random Glucose 162 H (70-110) mg/dL Calcium 8.1 L (8.4-10.5) mg/dL Total Bilirubin 0.7 (0.2-1.3) mg/dL AST 511 H (15-39) U/L ALT 203 H (7-56) U/L Alkaline Phosphatase 42 (38-133) U/L Total Protein 5.4 L (5.8-8.3) g/dL Albumin 3.1 (3.0-4.8) g/dL Globulin 2.3 gm/dL Albumin/Globulin Ratio 1.3 (1.1-1.8) Urine Color (YELLOW) Urine Appearance (CLEAR) Urine pH (4.7-8.0) Ur Specific [place] (1.005-1.035) Urine Protein (<30 mg/dL) mg/dL Urine Glucose (UA) (NEGATIVE) mg/dL Urine Ketones (NEGATIVE) mg/dL Urine Blood (NEGATIVE) Urine Nitrate (NEGATIVE) Urine Bilirubin (NEGATIVE) Urine Urobilinogen (<1 E.U./dL) E.U./dL Ur Leukocyte Esterase (NEGATIVE) Dylon/uL Urine RBC (0-2) /hpf Urine WBC (0-6) /hpf Ur Epithelial Cells (0-5) /hpf Crossmatch See Detail 03/26/17 03/25/17 Range/Units 15:00 05:00 WBC (4.5-11.0) 10^3/ul RBC (3.5-6.1) 10^6/uL Hgb (12.0-16.0) gm/dL Hct (36.0-48.0) % MCV (80.0-105.0) fL MCH (25.0-35.0) pg MCHC (31.0-37.0) g/dl RDW (11.5-14.5) % Plt Count (120.0-450.0) 10^3/uL MPV (7.0-11.0) fl Gran % (50.0-68.0) % Lymph % (Auto) (22.0-35.0) % [place] % (Auto) (1.0-6.0) % Eos % (Auto) (1.5-5.0) % Baso % (Auto) (0.0-3.0) % Gran # (1.4-6.5) Lymph # (1.2-3.4) [place] # (0.1-0.6) Eos # (0.0-0.7) Baso # (0.0-2.0) K/mm3 Neutrophils % (Manual) (50.0-70.0) % Band Neutrophils % (0-2) % Lymphocytes % (Manual) (22.0-35.0) % Monocytes % (Manual) Poikilocytosis (manual PT (9.9-11.8) Seconds INR (0.93-1.08) APTT (23.7-30.8) Seconds pCO2 (35-45) mm/Hg pO2 (80-100) mm/Hg HCO3 (21-28) mmol/L ABG pH (7.35-7.45) ABG Total CO2 (22-28) mmol.L ABG O2 Saturation (95-98) % ABG O2 Content (15-23) ML/dl ABG Base Excess (-2.0-3.0) mmol/L ABG Hemoglobin (11.7-17.4) g/dL ABG Carboxyhemoglobin (0.5-1.5) % POC ABG HHb (Measured) (0-5) % ABG Methemoglobin (0.0-3.0) % ABG O2 Capacity (16-24) mL/dl Hgb O2 Saturation (95.0-98.0) % FiO2 % Sodium 138 (132-148) mmol/L Potassium 5.1 H (3.6-5.0) mmol/L Chloride 101 (95-110) mmol/L Carbon Dioxide 23 (21-33) mmol/L Anion Gap 19 (10-20) BUN 71 H (7-21) mg/dL Creatinine 2.2 H (0.5-1.4) mg/dL Est GFR ( Amer) 26 Est GFR (Non-Af Amer) 22 POC Glucose (mg/dL) 158 H (65-110) mg/dL Random Glucose 101 (70-110) mg/dL Calcium 8.5 (8.4-10.5) mg/dL Total Bilirubin 0.4 (0.2-1.3) mg/dL AST 23 (15-39) U/L ALT 22 (7-56) U/L Alkaline Phosphatase 47 (38-133) U/L Total Protein 6.2 (5.8-8.3) g/dL Albumin 3.3 (3.0-4.8) g/dL Globulin 2.9 gm/dL Albumin/Globulin Ratio 1.1 (1.1-1.8) Urine Color (YELLOW) Urine Appearance (CLEAR) Urine pH (4.7-8.0) Ur Specific [place] (1.005-1.035) Urine Protein (<30 mg/dL) mg/dL Urine Glucose (UA) (NEGATIVE) mg/dL Urine Ketones (NEGATIVE) mg/dL Urine Blood (NEGATIVE) Urine Nitrate (NEGATIVE) Urine Bilirubin (NEGATIVE) Urine Urobilinogen (<1 E.U./dL) E.U./dL Ur Leukocyte Esterase (NEGATIVE) Dylon/uL Urine RBC (0-2) /hpf Urine WBC (0-6) /hpf Ur Epithelial Cells (0-5) /hpf Crossmatch Laboratory Results - last 24 hr 03/25/17 03/26/17 03/28/17 05:00 15:00 09:10 WBC RBC Hgb Hct MCV MCH MCHC RDW Plt Count MPV Gran % Lymph % (Auto) [place] % (Auto) Eos % (Auto) Baso % (Auto) Gran # Lymph # [place] # Eos # Baso # Neutrophils % (Manual) Band Neutrophils % Lymphocytes % (Manual) Monocytes % (Manual) Poikilocytosis (manual PT INR APTT pCO2 pO2 HCO3 ABG pH ABG Total CO2 ABG O2 Saturation ABG O2 Content ABG Base Excess ABG Hemoglobin ABG Carboxyhemoglobin POC ABG HHb (Measured) ABG Methemoglobin ABG O2 Capacity Hgb O2 Saturation FiO2 Sodium 138 Potassium 5.1 H Chloride 101 Carbon Dioxide 23 Anion Gap 19 BUN 71 H Creatinine 2.2 H Est GFR ( Amer) 26 Est GFR (Non-Af Amer) 22 POC Glucose (mg/dL) 158 H Random Glucose 101 Calcium 8.5 Total Bilirubin 0.4 AST 23 ALT 22 Alkaline Phosphatase 47 Total Protein 6.2 Albumin 3.3 Globulin 2.9 Albumin/Globulin Ratio 1.1 Urine Color Urine Appearance Urine pH Ur Specific [place] Urine Protein Urine Glucose (UA) Urine Ketones Urine Blood Urine Nitrate Urine Bilirubin Urine Urobilinogen Ur Leukocyte Esterase Urine RBC Urine WBC Ur Epithelial Cells Crossmatch See Detail 03/28/17 03/28/17 03/28/17 18:00 18:11 18:11 WBC 14.1 H D RBC 3.36 L Hgb 9.9 L Hct 30.1 L MCV 89.6 MCH 29.5 MCHC 32.9 RDW 14.2 Plt Count 129 MPV 11.4 H Gran % Lymph % (Auto) [place] % (Auto) Eos % (Auto) Baso % (Auto) Gran # Lymph # [place] # Eos # Baso # Neutrophils % (Manual) 98 H Band Neutrophils % 1 Lymphocytes % (Manual) 1 L Monocytes % (Manual) TEST NOT PERFORMED Poikilocytosis (manual Slight PT 40.4 H* INR 3.74 H* APTT 51.4 H pCO2 pO2 HCO3 ABG pH ABG Total CO2 ABG O2 Saturation ABG O2 Content ABG Base Excess ABG Hemoglobin ABG Carboxyhemoglobin POC ABG HHb (Measured) ABG Methemoglobin ABG O2 Capacity Hgb O2 Saturation FiO2 Sodium 143 Potassium 5.9 H* Chloride 110 H Carbon Dioxide 21 Anion Gap 18 BUN 98 H Creatinine 2.6 H Est GFR ( Amer) 22 Est GFR (Non-Af Amer) 18 POC Glucose (mg/dL) Random Glucose 162 H Calcium 8.1 L Total Bilirubin 0.7 AST 511 H ALT 203 H Alkaline Phosphatase 42 Total Protein 5.4 L Albumin 3.1 Globulin 2.3 Albumin/Globulin Ratio 1.3 Urine Color Urine Appearance Urine pH Ur Specific [place] Urine Protein Urine Glucose (UA) Urine Ketones Urine Blood Urine Nitrate Urine Bilirubin Urine Urobilinogen Ur Leukocyte Esterase Urine RBC Urine WBC Ur Epithelial Cells Crossmatch 03/28/17 03/29/17 03/29/17 20:10 06:00 06:00 WBC 15.3 H RBC 2.42 L Hgb 7.3 L D Hct 21.2 L MCV 87.6 MCH 30.2 MCHC 34.4 RDW 14.8 H Plt Count 84 L MPV 11.4 H Gran % 98.9 H Lymph % (Auto) 0.7 L [place] % (Auto) 0.4 L Eos % (Auto) 0.0 L Baso % (Auto) 0.0 Gran # 15.09 H Lymph # 0.1 L [place] # 0.1 Eos # 0.0 Baso # 0.00 Neutrophils % (Manual) Band Neutrophils % Lymphocytes % (Manual) Monocytes % (Manual) Poikilocytosis (manual PT INR APTT pCO2 pO2 HCO3 ABG pH ABG Total CO2 ABG O2 Saturation ABG O2 Content ABG Base Excess ABG Hemoglobin ABG Carboxyhemoglobin POC ABG HHb (Measured) ABG Methemoglobin ABG O2 Capacity Hgb O2 Saturation FiO2 Sodium 145 Potassium 6.5 H* D Chloride 107 Carbon Dioxide 25 Anion Gap 20 BUN 109 H Creatinine 2.9 H Est GFR ( Amer) 19 Est GFR (Non-Af Amer) 16 POC Glucose (mg/dL) Random Glucose 144 H Calcium 8.2 L Total Bilirubin 0.7 AST 506 H ALT 180 H Alkaline Phosphatase 69 Total Protein 6.5 Albumin 3.7 Globulin 2.7 Albumin/Globulin Ratio 1.4 Urine Color Yellow Urine Appearance Clear Urine pH 5.5 Ur Specific [place] 1.025 Urine Protein Trace H Urine Glucose (UA) Negative Urine Ketones Trace H Urine Blood Negative Urine Nitrate Negative Urine Bilirubin Negative Urine Urobilinogen 0.2 Ur Leukocyte Esterase Negative Urine RBC 0 - 2 Urine WBC 0 - 2 Ur Epithelial Cells 0 - 2 Crossmatch 03/29/17 03/29/17 06:00 11:10 WBC RBC Hgb Hct MCV MCH MCHC RDW Plt Count MPV Gran % Lymph % (Auto) [place] % (Auto) Eos % (Auto) Baso % (Auto) Gran # Lymph # [place] # Eos # Baso # Neutrophils % (Manual) Band Neutrophils % Lymphocytes % (Manual) Monocytes % (Manual) Poikilocytosis (manual PT 11.7 INR 1.08 APTT 26.0 pCO2 45 pO2 104.0 H HCO3 21.6 ABG pH 7.29 L ABG Total CO2 23.0 ABG O2 Saturation 99.9 H ABG O2 Content 9.3 L ABG Base Excess -4.6 L ABG Hemoglobin 6.7 L ABG Carboxyhemoglobin 2.3 H POC ABG HHb (Measured) 0.1 ABG Methemoglobin 1.2 ABG O2 Capacity 9.3 L Hgb O2 Saturation 96.4 FiO2 35.0 Sodium Potassium Chloride Carbon Dioxide Anion Gap BUN Creatinine Est GFR ( Amer) Est GFR (Non-Af Amer) POC Glucose (mg/dL) Random Glucose Calcium Total Bilirubin AST ALT Alkaline Phosphatase Total Protein Albumin Globulin Albumin/Globulin Ratio Urine Color Urine Appearance Urine pH Ur Specific [place] Urine Protein Urine Glucose (UA) Urine Ketones Urine Blood Urine Nitrate Urine Bilirubin Urine Urobilinogen Ur Leukocyte Esterase Urine RBC Urine WBC Ur Epithelial Cells Crossmatch Critical Care Progress Note - Nutrition Nutrition: Nutrition Category Date Time Status Liquid Diet [DIET] Diets 03/28/17 Lunch Ordered Attending/Attestation - Attestation I have personally seen and examined this patient.: Yes I have fully participated in the care of the patient.: Yes I have reviewed all pertinent clinical information: Yes Notes (Text): 03/29/17 15:48 71 y/o F w/ Metastatic Ca w/ abd compartment syndrome and worsening LUKE Currently mental status is worsening w/ a stable PH Placed on BIPAP to help with increased SOB and WOB Plan to send to IR to have removal ascites and probable hematoma. Replete with Albumin after removal. Monitor resp status, comfort measures DNR /DNI per Oncology . SCD ppi cc time 72 min
--- NOTE | 2017-03-29 16:13 | CP.PCM.PN ---
Subjective - Date & Time of Evaluation Date of Evaluation: 03/29/17 Time of Evaluation: 08:40 - Subjective Subjective: Patient continues to be on the BiPAP, ill-appearing, no fevers overnight, no diarrhea. Objective - Vital Signs/Intake and Output Vital Signs (last 24 hours): Temp Pulse Resp BP Pulse Ox 97.4 F L 96 H 29 H 100/66 96 03/29/17 04:00 03/29/17 13:52 03/29/17 06:00 03/29/17 06:00 03/29/17 06:00 Intake and Output: 03/29/17 03/29/17 06:59 18:59 Intake Total 1420 Output Total 20 Balance 1400 - Medications Medications: Current Medications Acetaminophen (Tylenol 325mg Tab) 650 mg PO Q4H PRN PRN Reason: Pain, Mild (1-3) Albumin Human (Albumin Human 25% (25 Gm/100 Ml)) 25 gm IV Q4 [facility] Stop: 03/30/17 04:01 Albuterol/Ipratropium (Duoneb 3 Mg/0.5 Mg (3 Ml) Ud) 3 ml IH [id number] [facility] Last Admin: 03/29/17 13:52 Dose: 3 ml Bisacodyl (Dulcolax) 10 mg RC DAILY [facility] Last Admin: 03/28/17 09:30 Dose: 10 mg Enoxaparin Sodium (Lovenox) 60 mg SC Q12H [facility] PRN Reason: Protocol Last Admin: 03/28/17 00:07 Dose: 60 mg Meropenem 1g/NS 100mL IVPB (Meropenem 1g/Ns 100ml Ivpb) 1 gm in 100 mls @ 100 mls/hr IVPB Q12 [facility] PRN Reason: Protocol Stop: 03/30/17 13:16 Last Admin: 03/28/17 21:38 Dose: 100 mls/hr Ondansetron HCl (Zofran Inj) 4 mg IVP Q6H PRN PRN Reason: Nausea/Vomiting Oxycodone HCl (Oxycodone Immediate Release Tab) 5 mg PO Q6H PRN PRN Reason: Pain, severe (8-10) Last Admin: 03/28/17 09:24 Dose: 5 mg Pantoprazole Sodium (Protonix Inj) 40 mg IVP Q12 [facility] - Labs Labs: 03/29/17 06:00 05/22/17 06:00 PT 11.7 Seconds (9.9-11.8) 03/29/17 06:00 INR 1.08 (0.93-1.08) 03/29/17 06:00 APTT 26.0 Seconds (23.7-30.8) 03/29/17 06:00 - Constitutional Appears: Other (on BiPAP, ill-appearing) - Head Exam Head Exam: NORMAL INSPECTION - Neck Exam Neck Exam: absent: Lymphadenopathy, Meningismus - Respiratory Exam Respiratory Exam: Decreased Breath Sounds Additional comments: right anterior chest wall port site clean and non-tender - Cardiovascular Exam Cardiovascular Exam: +S1, +S2 - GI/Abdominal Exam GI & Abdominal Exam: Soft. absent: Tenderness Assessment and Plan - Assessment and Plan (Free Text) Plan: Assessment Severe sepsis with acute renal failure due to Bacteroides bacteremia in a patient with advanced stage ovarian cancer with ascites, GI or source, unlikely port as source since it was only placed a day prior to the bacteremia history of pneumonia history of tracheostomy S/P bilateral herniorraphy HTN history of bilateral DVT Plan continue Merrem (day 5); repeat blood cx so far negative Discussed with Dr. Kaur previously that we can continue chemotherapy since she is on antibiotics Will continue to follow clinically Overall prognosis is poor
[2017-03-29 16:19] LABS: CALCIUM 8.1 mg/dL (8.4-10.5)
[2017-03-29 16:25] LABS: POTASSIUM 6.6 mmol/L (3.6-5.0)
[2017-03-29] MEDS: Albumin Human 25% (25 gm/100 ml) IV SCH ×2 (17:05→20:10)
--- NOTE | 2017-03-29 17:07 | PN ---
DATE: 03/29/2017 SUBJECTIVE: The patient is seen in the ICU. She is lethargic, barely arousable, opens eyes. On BiP AP. Events of the last 24 hours noted. The patient was found to have increased abdominal girth, inc reased abdominal distention yesterday. She was also found to have hyperkalemia, elevated BUN and cre atinine. The patient underwent a repeat CT scan of the abdomen. There was some increased intra-abdo elham fluid. She also had a drop in her hemoglobin. Her hemoglobin dropped to 6.7 from 10.7. She r eceived 2 units of prbc's. She also received 5 units of platelets. In essence, patient though t to have intra-abdominal bleeding. The patient was made DNR and DNI this morning. She also had a P leurX catheter placed and 2.5 liters of fluid was drained from the peritoneal cavity; it was bloody. She also has worsening mental status, worsening renal parameters. She was also found to be severely hyperkalemic. Her initial potassium was 5.5 yesterday morning, destini to 5.9. She also received vitam in K yesterday. Her potassium was treated this morning with Kayexalate, IV calcium gluconate, Kayexalate, insulin and D50. PHYSICAL EXAMINATION: GENERAL: Elderly lady lying in bed in the ICU, barely arousable. VITAL SIGNS: Blood pressure 100/66, heart rate 104, respiratory rate 29, temperature 97.4. HEENT: Normocephalic, atraumatic. NECK: Supple, no JVD. LUNGS: Bilateral equal air entry, bilateral rhonchi, distant breath sounds. CARDIAC: S1, S2, regular rate and rhythm, no murmur, no rub. ABDOMEN: Obese, distended, soft, right-sided PleurX catheter. Bowel sounds sluggish. EXTREMITIES: 2+ pitting edema of the lower extremities. INTAKE AND OUTPUT: 3345/70. LABORATORY DATA: WBC 15, hemoglobin 7.3, hematocrit 21, platelets 84. Sodium 145, potassium 6.5, ch loride 107, CO2 25, BUN 109, creatinine 2.9, glucose 144, calcium 8.2, AST 506, ALT 180, albumin 3.7. Urinalysis: Yellow, clear, pH 5.5, specific gravity 1.025, protein trace, glucose negative, ketone s trace, leukocyte esterase negative. CURRENT MEDICATIONS: Albumin, Dulcolax, DuoNeb, Lovenox 60 q. 12 hours which was held yesterday, bela openem 1 gram q. 12 hours, oxycodone, Protonix, Tylenol, Zofran. ASSESSMENT: A 71-year-old lady with serous papillary carcinoma diagnosed in 2012, stage IV metastati c ovarian cancer, abdominal distention, acute kidney injury, likely secondary to contrast exposure, h ypotension, sepsis. Respiratory acidosis was slowly improving in terms of her renal function. The abelino martin received chemotherapy on . The patient was also receiving Lovenox for recurrent deep v enous thrombosis. The patient has had intraabdominal bleed, blood in the peritoneal cavity. She has worsening acute kidney injury, hyperkalemia, metabolic acidosis secondary to this intraabdominal ble ed. She also has bilateral pleural effusion. At this time, patient is critically ill, prognosis is grim. The patient is now DNR and DNI. The patient just had a PleurX catheter placed on the right si de, 2500 mL of bloody fluid was drained. Hopefully, this will help improve her compartment syndrome, which is partly responsible for her acute kidney injury. 1. Acute kidney injury secondary to acute tubular necrosis. 2. Hyperkalemia. 3. Metabolic acidosis. 4. Severe anemia. 5. Coagulopathy. 6. Thrombocytopenia. 7. Respiratory acidosis. 8. Hypertension. 9. Oligoanuric acute kidney injury at this time. PLAN: 1. No plans for renal replacement therapy, patient is critically ill, has stage IV ovarian can cer. 2. Intraabdominal bleed, monitor H and H. closely. 3. DNR/DNI noted. 4. Continue conservative care. 5. Case discussed with Dr. Antonio, ICU resident, ICU nurses. TIME SPENT: More than 35 minutes spent in the care of this critically ill patient. Susannah Velasquez MD cc: [id number] TT: 03/29/2017 17:06:53 Confirmation # [id number] Dictation # [id number] ln
--- NOTE | 2017-03-29 19:07 | VASCULAR ---
PROCEDURE: Ultrasound fluoroscopically placed tunneled peritoneal catheter HISTORY: Ovarian CA. Stage IV. Bulky pelvic disease with ascites. Abdominal pain with distention and shortness of breath. Recent paracentesis. Needs tunneled peritoneal catheter. PHYSICIAN(S): Santy Mcfadden MD. TECHNIQUE: The relative risks and indications for the procedure were explained to the patient's family and informed consent obtained. The patient was placed in a supine position on the angiography table and preliminary sonography of the abdomen performed. This revealed a moderate amount of ascites in the right abdomen. A puncture site in a right mid abdomen was selected the area prepped and draped usual sterile fashion. 1 percent xylocaine was used to anesthetize the skin and soft tissues. Right peritoneal cavity was punctured with an 18 gauge needle. Bloody ascites was aspirated. 0.035 glidewire was coiled in the right upper quadrant. The peel-away sheath was placed. Next a 15.5 Serbian a spare catheter was advanced over the guidewire. The catheter was passed superiorly and posteriorly. The catheter was tunneled on the anterior abdominal wall. Paracentesis was performed. 2500 cc of bloody ascites was aspirated. No labs were sent. IMPRESSION: 1. Ultrasound fluoroscopically placed tunneled peritoneal catheter as described above. 2. Paracentesis. 2500 cc of bloody fluid was removed.
[2017-03-29 22:34] LABS: CALCIUM 8.4 mg/dL (8.4-10.5)
[2017-03-29 22:42] LABS: POTASSIUM 6.8 mmol/L (3.6-5.0)
[2017-03-29] MEDS ORDERED: Insulin Regular 1 UNITS/0.01 ML ML IV ONE (23:00)
--- NOTE | 2017-03-29 23:59 | PN ---
DATE: 03/29/2017 LOCATION: The patient in CCU, bed 3. SUBJECTIVE: The patient is seen in the unit. she is lethargic, barely arousable, opens her eyes. She is on BiPAP. Events over the last 48 hours noted. The patient has progressive abdominal distention, hemoglobin dropped down to 6 grams, received 4 units of FFP and 2 units of packed red blood cells. The patient is having increasing abdominal girth with distention. The patient is going to be set up now for a peritoneal catheter for paracentesis. She was found to be hyperkalemic with an elevated BUN and creatinine. The patient underwent a CAT scan of the abdomen to check for bleeding. There was some increased ascites noted. She had drop in hemoglobin from 10.7 to 6.7 gm% the patient was thought to be having intra-abdominal bleeding and the catheter, then, more than 2.5 liters of serosanguineous fluid was removed. The patient had a Aspira catheter placed in the peritoneal cavity and this fluid was removed. She has worsening of her mental status and worsening renal parameters. Noted to be severely hyperkalemic. Potassium was 5.5 yesterday, destini to 5.9. She also received vitamin K yesterday. Potassium was treated with Kayexalate, IV calcium gluconate, along with insulin D50. PHYSICAL EXAMINATION: GENERAL: Elderly female, lying in the ICU, barely arousable. VITAL SIGNS: Reveal blood pressure of 100/66, heart rate is 104, respirations 29, T-max is 98.4. HEENT: Head is normocephalic, atraumatic. NECK: Supple. There is no adenopathy. The patient has severe kyphoscoliosis. LUNGS: Reveal bilateral air entry with bilateral rhonchi, distant breath sounds. HEART: Reveals S1 and S2 to be normal. No gallop or murmur is heard. ABDOMEN: Distended, soft. The patient has right-sided Aspira catheter. Bowel sounds are sluggish. More than 2.5 liters of fluid was removed. EXTREMITIES: 2+ pitting edema of the lower extremities is noted. Input is 3045 , output is only 70. LABORATORY DATA: Reveals a white count of 15, hemoglobin 7.3, hematocrit 21, platelet count of 84,000. Sodium is 145, K 6.5, chloride is 107, CO2 25, BUN 109, creatinine 2.9, glucose of 145. Calcium is 8.2. AST is 185and ALT is 180 , albumin is 3.7. MEDICATIONS: Reviewed. She is on albumin, Dulcolax, DuoNeb. Lovenox is on hold. Meropenem 1 gram IV q. 12 hours, oxycodone, Protonix, Tylenol, and Zofran. 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 Now has progressive abdominal distention, drop in hematocrit with an Aspira catheter that drained almost 2.5 liters of serosanguineous fluid. History of hypertension, sepsis, respiratory acidosis, slowly improving in terms of her renal function. The patient received her last dose of chemotherapy on Wednesday. The patient's Lovenox currently is on hold because of the coagulopathy. The patient has intra-abdominal bleed and blood in the peritoneal cavity. She has worsening of her kidney injury. She has also had bilateral pleural effusions. At this time, the patient is critically ill and prognosis is guarded. The patient has had a catheter placed in so we can drain the fluid on an intermittent basis without re-tapping her. More importantly, if we have to decide on giving intraperitoneal chemotherapy as a last resort, we might be able to do so. ASSESSMENT NOTES AND PLAN: The patient has stage IV metastatic ovarian carcinoma. In the background history of this, the patient has had progressive abdominal distention, ascites, intra-abdominal bleed, hyperkalemia, metabolic acidosis, severe anemia, coagulopathy, thrombocytopenia, respiratory distress, hypertension, oliguric acute kidney injury. PLAN: The patient will continue aggressive supportive care at this time. We will continue to monitor the blood counts and blood work very closely. I have spoken in detail to the patient's family, spoke to the ICU resident as well, and Dr. Antonio, the motors assembler as well. More than 40 minutes were spent in the care of this critically ill patient. Brock Kaur MD cc: [id number] TT: 03/29/2017 23:58:38 Confirmation # [id number] Dictation # [id number] jake [id number]
[2017-03-30] MEDS: Albumin Human 25% (25 gm/100 ml) IV SCH ×2 (00:08→04:00)
--- NOTE | 2017-03-30 00:18 | PN ---
DATE: 03/29/2017 REFERRING PHYSICIAN: Dr. Delgado Lamas. SUBJECTIVE: She is unresponsive on noninvasive ventilation. Last 24-hour events noted. Has a high intra-abdominal pressure requiring paracentesis and catheter placement. There is not much pulmonary secretion. No hemoptysis. Has a distended abdomen and leg swelling. OBJECTIVE: GENERAL: Unresponsive on noninvasive ventilation. VITAL SIGNS: Temperature is 98, heart rate is 92, respiratory rate 22, blood pressure 97/57, pulse o x 100% on noninvasive ventilation with 35% oxygen. HEENT: Moist mucous membrane. NECK: Short, thick neck. LUNGS: Has a poor airflow. HEART: S1, S2. ABDOMEN: Distended, obese, has a drainage catheter. EXTREMITIES: Has edema of the lower extremities. NEUROLOGIC: Unresponsive. MEDICATIONS: She is on albumin 25 g IV q. 4 hours, Dulcolax 10 mg rectally daily, DuoNeb q. 6 hours, Lovenox 60 mg subQ q. 12 hours, meropenem 1 g IV q. 12 hours, oxycodone immediate release 5 mg q. 6 hours p.r.n., Protonix 40 mg q. 12 hours, Tylenol p.r.n., Zofran on a p.r.n. basis. LABORATORY DATA: Shows hemoglobin 7.3, hematocrit 21.2, WBC 15.3, platelet is 84. INR 1.08, PTT is 26. ABG showed pH 7.29, pCO2 of 45, O2 104. This is on BiPAP with 35% oxygen. Sodium 142, potassiu m 6.6, chloride 109, bicarbonate 24, BUN 120, creatinine 3.3, glucose 118, calcium 8.1. AST , A LT 180, alkaline phosphatase is , albumin .7. IMPRESSION AND PLAN: Metastatic ovarian cancer involved in the abdominal cavity with peritonitis, at electasis, scoliosis, pleural effusion, hypertension, deep venous thrombosis, history of anemia. Chad e discussed with the nursing staff. Noted, the patient was made DNR and DNI, on noninvasive ventilat ion, also on anticoagulation. Overall, very poor prognosis. Keep present noninvasive ventilation se ttings, bronchodilator. Gastric prophylaxis. Deep vein thrombosis prophylaxis. Follow up labs in t morning. Thank you. Will follow with you. Danial Dumont MD cc: [id number] TT: 03/30/2017 00:18:05 Confirmation # [id number] Dictation # [id number] mn
[2017-03-30 06:44] LABS: MEAN CELL VOLUME 84.4 fL (80.0-105.0); MEAN CORPUSCULAR HEMOGLOBIN 29.7 pg (25.0-35.0); MEAN CORPUSCULAR HGB CONC 35.2 g/dl (31.0-37.0); MEAN PLATELET VOLUME 11.9 fl (7.0-11.0); RED CELL DISTRIBUTION WIDTH 14.2 % (11.5-14.5); WHITE BLOOD COUNT 11.4 10^3/ul (4.5-11.0)
[2017-03-30 07:05] LABS: ADD MANUAL DIFF? YES; HEMATOCRIT 16.2 % (36.0-48.0)
[2017-03-30] MEDS: Albuterol-Ipratrop 3 mg / 0.5 (3 ml) UD IH SCH (07:12)
[2017-03-30 07:43] LABS: NEUTROPHIL 96 % (50.0-70.0)
[2017-03-30 07:44] LABS: HYPOCHROMIA 1+
[2017-03-30 07:47] LABS: PLATELET COUNT 38 10^3/uL (120.0-450.0)
--- NOTE | 2017-03-30 08:17 | PN ---
DATE: 03/29/2017 ADDENDUM This is an addendum to the GI progress report dictated by Georgiana Regalado APN. SUBJECTIVE: This patient was seen and evaluated earlier. The patient is scheduled to have a paracentesis done at the time of examination. The patient' s abdomen was significantly distended at the hemoperitoneum. Coagulopathy has reversed. INR is now only 1.08. Hemoglobin 7.3, hematocrit 21.2 at the time. WBC is 15.3. IMPRESSION: This 71-year-old patient with ovarian cancer stage IV, status post thoracentesis before. Has now significantly distended abdomen with a hemoperitoneum and drop in blood count. No obvious melena or bright red blood per rectum. At the time of examination, the patient is due to have the paracentesis scheduled. The patient was lethargic. The patient is presently DNR. We will continue to follow up the hemoglobin and hematocrit. Transfuse as necessary and continue PPI . Thank you very much for allowing us to participate in the care of the patient. Renetta Mcclure MD cc: [id number] TT: 03/29/2017 23:41:13 Confirmation # [id number] Dictation # [id number] tn MTDD
[2017-03-30 08:24] LABS: ALB/GLOB RATIO 1.9 (1.1-1.8); BILIRUBIN,TOTAL 0.9 mg/dL (0.2-1.3); CALCIUM 8.5 mg/dL (8.4-10.5); MAGNESIUM 2.7 mg/dL (1.7-2.2); TOTAL PROTEIN 5.6 g/dL (5.8-8.3)
[2017-03-30 08:52] LABS: POTASSIUM 7.2 mmol/L (3.6-5.0)
[2017-03-30] MEDS: Meropenem 1g/NS 100mL IVPB 1 GM/100 ML PIGGYBACK IVPB SCH (09:17)
--- NOTE | 2017-03-30 09:25 | PN ---
DATE: 03/30/2017 The patient seen and examined at bedside. She is very somnolent. She is responded only to deep touch stimuli. PHYSICAL EXAMINATION: VITAL SIGNS: She is on BiPAP 20/6 with FiO2 of 35%, blood pressure 102/61, heart eiat395, oxygen saturation 99%. HEAD AND NECK: Atraumatic. LUNGS: Decreased breath sounds bilaterally. HEART: Regular rate and rhythm. S1, S2 normal. ABDOMEN: Distended, tense. Tender on palpation diffusely. MUSCULOSKELETAL: 1+ bilateral pedal and ankle edema. NEUROLOGIC: The patient is very somnolent. SKIN: Moist. PSYCHIATRIC: The patient is somnolent. LABORATORY DATA: WBC 11.4, hemoglobin 5.7, down from 7.3, platelet count 38. Sodium 143, potassium 7.2, chloride 108, BUN 124, creatinine 3.6, glucose 113. AST 325, ALT 122. MEDICATIONS: DuoNeb every 6, Dulcolax, Lovenox 60 mg subQ q. 12, now on hold, Zofran p.r.n. oxycodone, Protonix. ASSESSMENT AND PLAN: This 71-year-old lady with very advanced ovarian cancer with multiple metastases into the peritoneum and intraabdominal organs, status post 2 cycles of chemotherapy complicated by thrombocytopenia and anemia which led to intraabdominal bleeding. The patient is not a candidate for any surgical intervention. Initial attempt at hemostasis was achieved with subsequent drainage of 2.5 L of intraabdominal sanguineous fluid. However, today hemoglobin dropped again and signs of multiorgan system failure worsened. I spoke with Dr. Kaur and discussed the patient with him. It appears that palliative/comfort care at present would be reasonable. We will touch base with Blanka Ivan and patient's [id number] to proceed with his plan. Addendum: Family confirmed their wishes to proceed with comfort/palliative care for the patient. ccm time 40 min Oliverio Mittal MD cc: [id number] TT: 03/30/2017 09:24:33 Confirmation # [id number] Dictation # [id number] [id number] MTDFely
--- NOTE | 2017-03-30 12:06 | CP.PCM.PN ---
Subjective - Date & Time of Evaluation Date of Evaluation: 03/30/17 Time of Evaluation: 09:00 - Subjective Subjective: Lethargic, moaning, not able to follow command. BIPAP in use Objective - Vital Signs/Intake and Output Vital Signs (last 24 hours): Temp Pulse Resp BP Pulse Ox 98.4 F 102 H 24 111/59 L 99 03/30/17 10:19 03/30/17 10:19 03/30/17 10:19 03/30/17 10:19 03/30/17 08:00 Intake and Output: 03/30/17 03/30/17 06:59 18:59 Intake Total 400 0 Output Total 125 Balance 275 0 - Medications Medications: Current Medications Acetaminophen (Tylenol 325mg Tab) 650 mg PO Q4H PRN PRN Reason: Pain, Mild (1-3) Albuterol/Ipratropium (Duoneb 3 Mg/0.5 Mg (3 Ml) Ud) 3 ml [id number] Last Admin: 03/30/17 07:12 Dose: 3 ml Bisacodyl (Dulcolax) 10 mg RC DAILY [facility] Last Admin: 03/30/17 09:28 Dose: Not Given Enoxaparin Sodium (Lovenox) 60 mg SC Q12H MARCIAL PRN Reason: Protocol Last Admin: 03/28/17 00:07 Dose: 60 mg Meropenem 1g/NS 100mL IVPB (Meropenem 1g/Ns 100ml Ivpb) 1 gm in 100 mls @ 100 mls/hr IVPB Q12 MARCIAL PRN Reason: Protocol Stop: 03/30/17 13:16 Last Admin: 03/30/17 09:17 Dose: 100 mls/hr Ondansetron HCl (Zofran Inj) 4 mg IVP Q6H PRN PRN Reason: Nausea/Vomiting Oxycodone HCl (Oxycodone Immediate Release Tab) 5 mg PO Q6H PRN PRN Reason: Pain, severe (8-10) Last Admin: 03/28/17 09:24 Dose: 5 mg Pantoprazole Sodium (Protonix Inj) 40 mg IVP Q12 [facility] Last Admin: 03/30/17 09:28 Dose: Not Given - Labs Labs: 03/30/17 06:15 03/30/17 06:15 PT 11.7 Seconds (9.9-11.8) 03/29/17 06:00 INR 1.08 (0.93-1.08) 03/29/17 06:00 APTT 26.0 Seconds (23.7-30.8) 03/29/17 06:00 - Constitutional Appears: Chronically Ill - Head Exam Head Exam: NORMAL INSPECTION - Eye Exam Eye Exam: Normal appearance, PERRL - ENT Exam ENT Exam: Mucous Membranes Moist, Normal Oropharynx - Neck Exam Neck Exam: Normal Inspection - Respiratory Exam Respiratory Exam: Accessory Muscle Use, Decreased Breath Sounds, Wheezes - Cardiovascular Exam Cardiovascular Exam: Tachycardia, +S1, +S2 - GI/Abdominal Exam GI & Abdominal Exam: Distended, Firm, Diminished Bowel Sounds - Extremities Exam Additional comments: bilateral lower extremity edema - Skin Skin Exam: Dry, Pallor, Warm Assessment and Plan - Assessment and Plan (Free Text) Assessment: 71 year old female addicted with advanced ovarian cancer, dyspnea, thrombocytopenia,anemia. She is /p chemotherapy (Taxol/Carboplatin). Patient, JAYAnne Marie GrimesDanitza and I had discussion last week regarding goals and advance care planning. Patient stated that she did not want to be intubated or have CPR if her condition worsened to a terminal or vegetative state. Over this past weekend patient developed bleeding, thrombocytopenia, anemia, electrolyte imbalance and renal injury. Her abdomen became distend, drainage of 2.5 L of sanguineous was done Despite medical interventions her condition has not improved. POAnne Marie decided to make her DNR/DNI yesterday. Today after speaking with both Dr. Mittal and Dr Kaur it was felt that the patient's condition was grave and likely irreversible. I spoke with patient's sisterDanitza(POA) who understands the gravity of her condition. Sister has agreed to transition patient to comfort care. Hospice services explained in detail. Sister traveling from [facility] to meet with [facility] education liaison today. Plan: Hospice referral for [facility] services Comfort care measures
[2017-03-30 12:07] VITALS: TEMP 99.4
[2017-03-30] MEDS ORDERED: Morphine 2 mg/ml ISec IVP STA (12:08)
[2017-03-30] MEDS ORDERED: Morphine 2 mg/ml ISec IVP PRN ×2 (12:26→12:29)
--- NOTE | 2017-03-30 13:54 | PN ---
DATE: 03/30/2017 SUBJECTIVE: The patient is currently seen in CCU bed 3. She has a very close friend who is in the room with her. Her family is coming in today from [facility]. The patient was made a DNR/DNI and plan is for palliative comfort and hospice care only. MEDICATIONS: List reviewed. The patient is on DuoNeb, morphine, Tylenol p.r.n. and Zofran p.r.n. OBJECTIVE: INTAKE AND OUTPUT: Intake 2470, output 2660, of which 2500 was fluid drained from the abdomen. VITAL SIGNS: Blood pressure 84/41, temperature 99.4. Respiratory rate 26 with a pulse of 100. HEENT: Eyes are closed. NECK: Supple, no neck vein distention. CHEST: Decreased breath sounds, scattered rhonchi bilaterally. No rales, no wheezing. CARDIOVASCULAR: Shows S1, S2 normal. No murmurs, rubs or gallops noted. ABDOMEN: Soft. Mild distention. Right-sided catheter in place. Bowel sounds are present. EXTREMITIES: Show 1-2+ lower extremity edema. No cyanosis or clubbing. NEUROLOGIC: Shows her to be noncommunicative and patient is moaning to all verbal stimulation. LABORATORY DATA AND IMAGING: CBC: White blood cell count today 11.4 with a hemoglobin down to 5.7, platelet count is 38,000. Chemistries today show a sodium of 143, potassium is up to 7.2. This is nonhemolyzed. Chloride is 108 with a CO2 of 24, BUN is 124 with a creatinine of 3.6, trending higher. Glucose is 113. Calcium is 8.5 with a phosphorus of 7.0 and a magnesium of 2.7. Elevated liver enzymes, AST 325, ALT is 122. Albumin is 3.7. Chest x- ray from yesterday shows bilateral effusions, right greater than left atelectasis. Increased pulmonary vascular congestion c/w CHF. Abdominal and pelvic CT scan done on 03/28 shows ascites, multiple abdominal soft tissue masses. Two hepatic masses, likely metastatic, omental metastasis and bilateral pleural effusions. ASSESSMENT: 1. Acute renal failure, likely secondary to acute tubular necrosis, hypotension in the setting of gastrointestinal bleeding. 2. Life-threatening hyperkalemia. Lengthy discussion with implement mechanic, ICU/ CCU staff. Plan is for palliative care only and not aggressive treatment of electrolyte abnormalities. 3. Metabolic acidosis. This has improved. 4. Severe anemia, coagulopathy, life-threatening thrombocytopenia with intra- abdominal bleeding. The patient had received 1 unit of packed red blood cells today, but will likely not receive any further transfusions. 5. History of hypertension. The patient is currently hypotensive with continued bleeding. 6. Stage IV ovarian cancer, followed closely by Dr. Kaur. It is Dr. Kaur 's opinion that patient has likely come to the end of the line and everybody is in agreement that palliative care, comfort measures and hospice care are indicated. PLAN: 1. No plans for aggressive treatment of her renal failure, hyperkalemia, and hypotension. 2. From renal standpoint, patient can have no further lab work as we are not aggressively treating the abnormalities. 3. The patient was met by palliative care staff today and everybody is in agreement regarding her DNR/DNI and for comfort measures along with palliative care and hospice. 4. The patient will likely remain in the unit until her family comes down from [facility]. Greater than 35 minutes spent in the care of this patient. Unfortunately, there is little to offer her at this time. Dandre Muniz MD cc: [id number] TT: 03/30/2017 13:54:22 Confirmation # [id number] Dictation # [id number] MTDD
[2017-03-30 14:06] VITALS: BP 83/36; PULSE 101; RESP 24; O2SAT 96
[2017-03-30] MEDS ORDERED: Morphine PCA 1 mg/ml (25ml) 25 ML IV PRN ×4 (15:01→16:39)
[2017-03-30] MEDS ORDERED: Scopolamine 1.5 mg/24 hr Patch TD SCH (16:00)
--- NOTE | 2017-03-30 17:48 | CP.PCM.PN ---
Subjective - Date & Time of Evaluation Date of Evaluation: 03/30/17 Time of Evaluation: 09:50 - Subjective Subjective: Continues to be on the BiPAP machine, ill-appearing, in some respiratory distress. Afebrile overnight. Objective - Vital Signs/Intake and Output Vital Signs (last 24 hours): Temp Pulse Resp BP Pulse Ox 99.4 F 101 H 24 83/36 L 96 03/30/17 12:05 03/30/17 14:00 03/30/17 14:00 03/30/17 14:00 03/30/17 14:00 Intake and Output: 03/30/17 03/30/17 06:59 18:59 Intake Total 400 0 Output Total 125 Balance 275 0 - Medications Medications: Current Medications Morphine Sulfate (Morphine Automotive Specialty Technician 1 Mg/Ml) 25 mls @ 1 mls/hr IV PRN PRN; 1 MG/HR PRN Reason: DIAMOND SETTER APPRENTICE PER MD ORDER - Labs Labs: 03/30/17 06:15 03/30/17 06:15 PT 11.7 Seconds (9.9-11.8) 03/29/17 06:00 INR 1.08 (0.93-1.08) 03/29/17 06:00 APTT 26.0 Seconds (23.7-30.8) 03/29/17 06:00 - Constitutional Appears: Chronically Ill, Other (Ill-appearing, in some respiratory distress) - Neck Exam Neck Exam: absent: Lymphadenopathy, Meningismus - Respiratory Exam Respiratory Exam: Decreased Breath Sounds Additional comments: right anterior chest wall port site clean and non-tender - Cardiovascular Exam Cardiovascular Exam: +S1, +S2 - GI/Abdominal Exam GI & Abdominal Exam: Distended, Soft. absent: Firm, Guarding, Rigid, Tenderness , Rebound Assessment and Plan - Assessment and Plan (Free Text) Plan: Assessment Severe sepsis with acute renal failure due to Bacteroides bacteremia in a patient with advanced stage ovarian cancer with ascites, GI or source, unlikely port as source since it was only placed a day prior to the bacteremia history of pneumonia history of tracheostomy S/P bilateral herniorraphy HTN history of bilateral DVT Plan continue Merrem (day 6); repeat blood cx are negative Overall prognosis is poor
--- NOTE | 2017-03-30 22:02 | PN ---
DATE: 03/30/2017 The patient was seen this Wednesday morning in intensive care, coronary care bed 3. She is being visit ed x 3 friends. Her sister is due to arrive later today. Chart was reviewed. Notes were updated. I spoke with Dr. Mittal in the ICU, as well as the patient and her guests. She had recently sedate d with IV morphine, was a bit lethargic, but certainly recognized me as I had known her for more than 20 years. PHYSICAL EXAMINATION: LUNGS: She has breath sounds bilaterally. HEART: Regular and borderline tachycardic. ABDOMEN: Hard and protuberant. IMPRESSION: Advanced ovarian cancer. PLAN: I spoke with the palliative care nurse, Belkys Ivan, in the unit. We discussed the patient' s options. I explained to her that I was able to talk with patient at the time of diagnosis. Explai karl the gravity of the prognosis and that the patient, a week later, informed me that she had taken t he opportunity to speak with her family and have her affairs in order, and they are aware of her wish es. Later in the day, I am told she and the family may opt to proceed in the direction of hospice an d/or comfort measures. I certainly understand and agree. Peter Love MD cc: [phone] TT: 03/30/2017 22:01:03 Confirmation # [id number] Dictation # [id number]
--- NOTE | 2017-03-30 23:54 | DS ---
The patient is in room 560, bed 1. She was earlier in the unit and being transferred now to . SUBJECTIVE: The patient is seen and examined at bedside. She is very somnolent, responded only to d eep touch stimuli. PHYSICAL EXAMINATION: VITAL SIGNS: The patient is on BiPAP 20/6 with FIO2 of 35%. Blood pressure 102/61, heart rate is 10 6, O2 sat is 99%. HEAD AND NECK: Atraumatic. LUNGS: Reveals decreased breath sounds bilaterally. HEART: Reveals S1 and S2 to be normal. ABDOMEN: Very much distended, tense, tender on palpation diffusely. The patient has an Aspira halle ter in place. MUSCULOSKELETAL: The patient has 1+ bilateral ankle edema extending up to the thighs. NEUROLOGIC: The patient is somnolent, only responds to noxious stimuli. SKIN: Moist. LABORATORY DATA: Reveals a white count of 11.5; hemoglobin 5.7, down from 7.3; platelet count is 38, 000. Sodium is 143, K is 7.2, chloride 109, BUN 124, creatinine 3.6, glucose 113, AST 325, ALT is 12 2. MEDICATIONS: Include DuoNeb every 6 hours; Lovenox 60 mg subQ q. 12 hours, now on hold; Zofran p.r.n .; Protonix. ASSESSMENT NOTES AND PLAN: The patient is rapidly progressing on a downhill course. I had a bill d talk with the sister earlier this morning. Belkys Ivan, our palliative care nurse, had also spok en to her. In view of the fact that the patient's metastatic disease into the peritoneum and intra-a bdominal organs status post first cycle of chemotherapy complicated by thrombocytopenia, intra-abdomi nal bleeding. We have made it clear to the family that at this point in time, it would appear to be futile to keep continuing the treatment, for the patient, and as per my previous discussions wi th the patient herself, they decided to shift over from active therapy to just comfort measures alone . The patient is going to be admitted to hospice for comfort measures per se. Sister is on her way from [place], [place] and will be here this afternoon. I also had a discussion with the patient's was also at the bedside. I also discussed the findings with Dr. Litinski, the salad chef on t he case as well. Coordination of efforts with various people plus talking to the family, my conference time was about 45 minutes. Brock Kaur MD cc:Peter Love MD [phone] TT: 03/30/2017 23:53:23 mn
== END 2017-03-30 16:12 | disposition hospice, inpatient (51) | DRG 754 ==
LOC: SDS 10:17 → 3RSO 19:35 → CCU 03-23 14:42 → 5RNO 03-30 15:21
PROVIDERS: ADMIT Family Medicine; ATTEND Family Medicine
PROC: 0JH63XZ Insertion of Tunneled Vascular Access Device into Chest Subcutaneous Tissue and Fascia, Percutaneous Approach (ICD-10-PCS; principal; 2017-03-22)
PROC: 0W9G3ZZ Drainage of Peritoneal Cavity, Percutaneous Approach (ICD-10-PCS; 2017-03-22)
PROC: 5A09557 Assistance with Respiratory Ventilation, Greater than 96 Consecutive Hours, Continuous Positive Airway Pressure (ICD-10-PCS; 2017-03-24)
PROC: 3E04305 Introduction of Other Antineoplastic into Central Vein, Percutaneous Approach (ICD-10-PCS; 2017-03-25)
PROC: 3E0F7GC Introduction of Other Therapeutic Substance into Respiratory Tract, Via Natural or Artificial Opening (ICD-10-PCS; 2017-03-27)
PROC: 30233K1 Transfusion of Nonautologous Frozen Plasma into Peripheral Vein, Percutaneous Approach (ICD-10-PCS; 2017-03-28)
PROC: 30233N1 Transfusion of Nonautologous Red Blood Cells into Peripheral Vein, Percutaneous Approach (ICD-10-PCS; 2017-03-28)
PROC: 0W9G30Z Drainage of Peritoneal Cavity with Drainage Device, Percutaneous Approach (ICD-10-PCS; 2017-03-29)
DX: C56.9 Malignant neoplasm of unspecified ovary (principal); A41.50 Gram-negative sepsis, unspecified; N17.0 Acute kidney failure with tubular necrosis; R65.21 Severe sepsis with septic shock; J96.91 Respiratory failure, unspecified with hypoxia; J96.92 Respiratory failure, unspecified with hypercapnia; R18.0 Malignant ascites; K65.9 Peritonitis, unspecified; E87.4 Mixed disorder of acid-base balance; J90 Pleural effusion, not elsewhere classified; K66.1 Hemoperitoneum; C78.6 Secondary malignant neoplasm of retroperitoneum and peritoneum; D68.59 Other primary thrombophilia; I82.433 Acute embolism and thrombosis of popliteal vein, bilateral; J98.11 Atelectasis; M41.9 Scoliosis, unspecified; D64.9 Anemia, unspecified; Z66 Do not resuscitate; N18.9 Chronic kidney disease, unspecified; I12.9 Hypertensive chronic kidney disease with stage 1 through stage 4 chronic kidney disease, or unspecified chronic kidney disease; E66.9 Obesity, unspecified; E87.5 Hyperkalemia; D69.6 Thrombocytopenia, unspecified; Z51.5 Encounter for palliative care; Z86.718 Personal history of other venous thrombosis and embolism; Z79.01 Long term (current) use of anticoagulants; Z87.01 Personal history of pneumonia (recurrent); Z87.891 Personal history of nicotine dependence; Z80.41 Family history of malignant neoplasm of ovary

== ENCOUNTER 2017-03-30 16:20 | Inpatient (IN) | payer OTHER ==
[2017-03-30] MEDS ORDERED: Morphine PCA 1 mg/ml (25ml) 25 ML IV PRN (16:50)
[2017-03-30] MEDS ORDERED: Scopolamine 1.5 mg/24 hr Patch TD SCH (19:00)
--- NOTE | 2017-03-31 04:08 | CP.PCM.PRO ---
Pronouncement of Note - Clinical Findings Physical Exam: No Response Verbal/Painful Stimuli, Absent Peripheral Pulses{ Carotid & Femoral}, Absent Heart & Breath Sounds, No Pupillary Light Reflex, No Corneal Reflex, Pupils Fixed & Dilated, Absence of Vital Signs - Pronouncement Time Time of Pronouncement of : 03:45 - Notifications Pronouncement Notifications: Family Notified, Atending Notified (by the nurse) Wafer Line Worker Notified: No - Autopsy Autopsy Requested: No - [place]: [id number] Additional Comments: Came to evaluate patient upon request of the nurse as the family noticed patient stopped breathing, and no pulse or pressure by the nursing, the patient was DNR/DNI on the hospice care on morphine and prn ativan. I confirmed above and pronounced patient at 3:45 am. pronounced in EDRS
== END 2017-03-31 03:45 | DRG 756 ==
LOC: 5RNO 16:20
PROVIDERS: ADMIT Family Medicine; ATTEND Family Medicine
DX: C56.9 Malignant neoplasm of unspecified ovary (principal); Z66 Do not resuscitate; Z51.5 Encounter for palliative care